=== PATIENT | female | born 1940 | race Caucasian/White ===

== ENCOUNTER 2016-09-27 12:26 | Emergency (ER) | payer BC, MEDICARE ==
[~2016-09-27] VITALS: Ht 172.7 cm; Wt 63.5 kg
[~2016-09-27 12:26] MED LIST: GABA600T2 PO; LORA0.5T PO; TRIA15OI TP
--- NOTE | 2016-09-27 12:55 | PHYS DOC ---
Past Medical History Past Medical History: Other Additional Past Medical Histor: MS Past Surgical History: Tonsillectomy, Tubal ligation, Other Additional Past Surgical Histo: BACK Additional Information: 0.5 PPD Alcohol Use: None Drug Use: None Adult General Chief Complaint Chief Complaint: OTHER COMPLAINTS [facility] HPI Patient is a 75 year old female who presents with a fall a few days ago. She denies she has a history of MS and she feels like she is losing ground. Few days ago she fell backwards and hit her head on the concrete floor and balance to 3 times. She denies headache currently and she denies losing consciousness when she fell. Yesterday she saw her chiropractor who did some x- rays of her neck and popped her neck. She states that she's been feeling a little weaker than normal. She feels that it could be her MS, but she wants to make sure it's not something else. She does have a follow-up appointment in October with her MS doctor. Review of Systems Review of Systems Constitutional: Denies fever or chills [] Eyes: Denies change in visual acuity, redness, or eye pain [] HENT: Denies nasal congestion or sore throat [] Respiratory: Denies cough or shortness of breath [] Cardiovascular: No additional information not addressed in HPI [] GI: Denies abdominal pain, nausea, vomiting, bloody stools or diarrhea [] : Denies dysuria or hematuria [] Musculoskeletal: Denies back pain or joint pain [] Integument: Denies rash or skin lesions [] Neurologic: Denies headache, focal weakness or sensory changes [] Endocrine: Denies polyuria or polydipsia [] Allergies Allergies Allergies Coded Allergies Type Severity Reaction Last Updated Verified No Known Drug Allergies 07/05/15 No Physical Exam Physical Exam Constitutional: Well developed, well nourished, no acute distress, non-toxic appearance. [] HENT: Normocephalic, atraumatic, bilateral external ears normal, oropharynx moist, no oral exudates, nose normal. [] Eyes: PERRLA, EOMI, conjunctiva normal, no discharge. [] Neck: Normal range of motion, no tenderness, supple, no stridor. [] Cardiovascular:Heart rate regular rhythm, no murmur [] Lungs & Thorax: Bilateral breath sounds clear to auscultation [] Abdomen: Bowel sounds normal, soft, no tenderness, no masses, no pulsatile masses. [] Skin: Warm, dry, no erythema, no rash. [] Back: No tenderness, no CVA tenderness. [] Extremities: No tenderness, no cyanosis, no clubbing, ROM intact, no edema. [] Neurologic: Alert and oriented X 3, normal motor function, normal sensory function, no focal deficits noted. [] Psychologic: Affect normal, judgement normal, mood normal. [] Current Patient Data Vital Signs Vital Signs Date Time Temp Pulse Resp B/P Pulse Ox O2 Delivery O2 Flow Rate FiO2 09/27/16 14:18 80 18 132/66 99 Room Air 09/27/16 12:31 97.7 97.7 Lab Values Laboratory Tests Test 09/27/16 13:00 09/27/16 13:12 Urine Collection Type Unknown Urine Color Yellow Urine Clarity Clear Urine pH 6.5 Urine Specific [place] 1.010 Urine Protein Negativemg/dL (NEG-TRACE) Urine Glucose (UA) Negativemg/dL (NEG) Urine Ketones (Stick) Negativemg/dL (NEG) Urine Blood Negative (NEG) Urine Nitrite Negative (NEG) Urine Bilirubin Negative (NEG) Urine Urobilinogen Dipstick 0.2mg/dL (0.2 mg/dL) Urine Leukocyte Esterase Negative (NEG) Urine RBC 0/HPF (0-2) Urine WBC 1-4/HPF (0-4) Urine Squamous Epithelial Cells Mod/LPF Urine Bacteria Few/HPF (0-FEW) Sodium Level 139mmol/L (136-145) Potassium Level 4.7mmol/L (3.5-5.1) Chloride Level 103mmol/L (98-107) Carbon Dioxide Level 28mmol/L (21-32) Anion Gap 8 (6-14) Blood Urea Nitrogen 14mg/dL (7-20) Creatinine 0.8mg/dL (0.6-1.0) Estimated GFR (Cockcroft-Gault) 69.6 BUN/Creatinine Ratio 18 (6-20) Glucose Level 109mg/dL (70-99) H Calcium Level 9.4mg/dL (8.5-10.1) Total Bilirubin 0.4mg/dL (0.2-1.0) Aspartate Amino Transferase (AST) 15U/L (15-37) Alanine Aminotransferase (ALT) 16U/L (14-59) Alkaline Phosphatase 105U/L (46-116) Creatine Kinase 43U/L (26-192) Creatine Kinase MB (Mass) 0.7ng/mL (0.0-3.6) Creatine Kinase MB Relative Index 1.6% (0-4) Total Protein 7.5g/dL (6.4-8.2) Albumin 3.2g/dL (3.4-5.0) L Albumin/Globulin Ratio 0.7 (1.0-1.7) L Thyroid Stimulating Hormone (TSH) 1.037uIU/mL (0.358-3.74) Laboratory Tests 09/27/16 13:12 EKG EKG [] Radiology/Procedures Radiology/Procedures [facility] [address] [place] [address] IMAGING REPORT Signed PATIENT: ANDREW GARNETT ACCOUNT: [id number] : 1940 LOCATION: ER AGE: 75 SEX: F EXAM STATUS: PRE ER ORD. PHYSICIAN: VONNIE HARMAN MD REASON: fall, dizziness PROCEDURE: HEAD AND CERVICAL SPINE WO CT of the head without contrast, 09/27/2016: History: Fall, dizziness Comparison is made to a study from 08/15/2010. The ventricles are mildly enlarged but unchanged. There is no shift of the midline structures. Minimal deep white matter lucencies are present adjacent to the frontal horns, not uncommon in older patients. There is no evidence of acute intracranial hemorrhage or mass effect. IMPRESSION: No acute intracranial abnormality is detected. CT of the cervical spine without contrast, 09/27/2016: Noncontrast scans were obtained with multiplanar reconstructions produced. There is moderate disc space narrowing and marginal spurring at C6-7. A few other scattered posterior spurs and disc bulges are present at C5-6, C4-5 and C3-4. There are mild degenerative changes involving scattered facet joints bilaterally. No fracture or dislocation is identified. No high-grade spinal stenosis is evident. IMPRESSION: 1. Mild to moderate multilevel degenerative change. 2. No acute bony abnormality is detected. PQRS Compliance Statement: One or more of the following individualized dose reduction techniques were utilized for this examination: 1. Automated exposure control 2. Adjustment of the mA and/or kV according to patient size 3. Use of iterative reconstruction technique DICTATED and SIGNED BY: MARQUIS HILL MD DATE: 09/27/16 5092 CC: VONNIE HARMAN MD; JAVIER CEDENO MD ~ Impressions: Postconcussive syndrome Course & Med Decision Making Course & Med Decision Making Pertinent Labs and Imaging studies reviewed. (See chart for details) Labs, CT scan does not show an acute abnormalities. She is being discharged home. She is to follow-up with her MS clinic, return precautions given cerebral plan be discharged in stable condition this time. Dragon Disclaimer Dragon Disclaimer This electronic medical record was generated, in whole or in part, using a voice recognition dictation system. Departure Departure Impression: Primary Impression: Postconcussive syndrome Disposition: 01 HOME, SELF-CARE Condition: STABLE Referrals: JAVIER CEDENO MD (PCP) Patient Instructions: Post-Concussion Syndrome Additional Instructions: CT scan of the neck and your blood work did not show any acute abnormalities. Discharged home. Please follow-up with your primary care physician. Return ER for lightheadedness dizziness or other concerns. VONNIE HARMAN MD Sep 27, 2016 12:55
[2016-09-27 13:23] LABS: BILIRUBIN,URINE NEGATIVE (NEG); GLUCOSE,URINE NEGATIVE (NEG); NITRITE,URINE NEGATIVE (NEG); PH,URINE 6.5; PROTEIN,URINE NEGATIVE (NEG-TRACE); UROBILINOGEN,URINE 0.2 mg/dL (0.2 mg/dL)
[2016-09-27 13:29] LABS: BACTERIA,URINE FEW /HPF (0-FEW); RBC,URINE 0 /HPF (0-2); SQUAMOUS EPITHELIAL CELL,UR MOD /LPF
[2016-09-27 13:31] LABS: CALCIUM 9.4 mg/dL (8.5-10.1); CREATININE 0.8 mg/dL (0.6-1.0); GFR 69.6; POTASSIUM 4.7 mmol/L (3.5-5.1)
[2016-09-27 13:36] LABS: ALBUMIN 3.2 g/dL (3.4-5.0); ALBUMIN/GLOBULIN RATIO 0.7 (1.0-1.7); TOTAL BILIRUBIN 0.4 mg/dL (0.2-1.0); TOTAL PROTEIN 7.5 g/dL (6.4-8.2)
[2016-09-27 13:44] LABS: CKMB INDEX 1.6 % (0-4); CKMB MASS 0.7 ng/mL (0.0-3.6)
--- NOTE | 2016-09-27 13:57 | RAD ---
CT of the head without contrast, 09/27/2016: History: Fall, dizziness Comparison is made to a study from 08/15/2010. The ventricles are mildly enlarged but unchanged. There is no shift of the midline structures. Minimal deep white matter lucencies are present adjacent to the frontal horns, not uncommon in older patients. There is no evidence of acute intracranial hemorrhage or mass effect. IMPRESSION: No acute intracranial abnormality is detected. CT of the cervical spine without contrast, 09/27/2016: Noncontrast scans were obtained with multiplanar reconstructions produced. There is moderate disc space narrowing and marginal spurring at C6-7. A few other scattered posterior spurs and disc bulges are present at C5-6, C4-5 and C3-4. There are mild degenerative changes involving scattered facet joints bilaterally. No fracture or dislocation is identified. No high-grade spinal stenosis is evident. IMPRESSION: 1. Mild to moderate multilevel degenerative change. 2. No acute bony abnormality is detected. PQRS Compliance Statement: One or more of the following individualized dose reduction techniques were utilized for this examination: 1. Automated exposure control 2. Adjustment of the mA and/or kV according to patient size 3. Use of iterative reconstruction technique
[2016-09-27 14:18] VITALS: BP 132/66
== END 2016-09-27 14:28 | disposition home or self-care (01) ==
LOC: ER 12:26
DX: F07.81 Postconcussional syndrome (principal); G35 Multiple sclerosis; F17.210 Nicotine dependence, cigarettes, uncomplicated
CPT/HCPCS: 36415; 70450; 72125; 80053; 81001; 82553; 84443; 99285-25

== ENCOUNTER 2016-12-17 10:53 | Emergency (ER) | payer BC, MEDICARE ==
[~2016-12-17] VITALS: Ht 172.7 cm; Wt 65.8 kg
[2016-12-17 11:33] LABS: BILIRUBIN,URINE NEGATIVE (NEG); GLUCOSE,URINE NEGATIVE (NEG); NITRITE,URINE NEGATIVE (NEG); PROTEIN,URINE NEGATIVE (NEG-TRACE); UROBILINOGEN,URINE 0.2 mg/dL (0.2 mg/dL)
[2016-12-17 11:53] LABS: BACTERIA,URINE 0 /HPF (0-FEW); RBC,URINE 0 /HPF (0-2); SQUAMOUS EPITHELIAL CELL,UR FEW /LPF; WBC,URINE RARE /HPF (0-4)
[2016-12-17] MEDS ORDERED: fentaNYL PF VIAL 100 MCG/2 ML VIAL IV ONE (12:15)
--- NOTE | 2016-12-17 12:26 | PHYS DOC ---
Past Medical History Past Medical History: Other Additional Past Medical Histor: MS Past Surgical History: Tonsillectomy, Tubal ligation, Other Additional Past Surgical Histo: BACK Alcohol Use: Rarely Drug Use: None Adult General Chief Complaint Chief Complaint: FLANK PAIN [facility] HPI Patient is a 76 year old female who presents with left flank pain. Patient states that she was at home when she developed rather abrupt left flank pain started yesterday. She reports she's been up all night urinating frequently. The pain improves if she lays perfectly still, worsens when she attempts to move. She denies dysuria, no nausea or vomiting, no fevers. She has attempted Aleve for pain at 3 AM without relief. No previous similar symptoms, no trauma or falls, no heavy lifting, pain does worsen with bending. Pain does not radiate into her leg. Review of Systems Review of Systems Constitutional: Denies fever or chills [] Eyes: Denies change in visual acuity, redness, or eye pain [] HENT: Denies nasal congestion or sore throat [] Respiratory: Denies cough or shortness of breath [] Cardiovascular: No additional information not addressed in HPI [] GI: Denies abdominal pain, nausea, vomiting, bloody stools or diarrhea [] : Denies dysuria or hematuria [] Musculoskeletal: Denies back pain or joint pain [] Integument: Denies rash or skin lesions [] Neurologic: Denies headache, focal weakness or sensory changes [] Endocrine: Denies polyuria or polydipsia [] Current Medications Current Medications Current Medications Medications (Trade) Dose Ordered Sig/[place] Start Time Stop Time Status Last Admin Dose Admin Fentanyl Citrate (Fentanyl 2ml Vial) 50 mcg 1X ONCE 12/17/16 12:15 12/17/16 12:16 DC Info (Do NOT chart on this entry -- for MONITORING) 1 each PRN DAILY PRN 12/17/16 12:45 12/17/16 15:17 DC Iohexol (Omnipaque 300 Mg/ml) 75 ml 1X ONCE 12/17/16 12:45 12/17/16 12:46 DC 12/17/16 14:09 75 ML Ketorolac Tromethamine (Toradol) 30 mg 1X ONCE 12/17/16 12:30 12/17/16 12:31 DC Allergies Allergies Allergies Coded Allergies Type Severity Reaction Last Updated Verified No Known Drug Allergies 07/05/15 No Physical Exam Physical Exam Constitutional: Well developed, well nourished, no acute distress, non-toxic appearance. [] HENT: Normocephalic, atraumatic, bilateral external ears normal, oropharynx moist, no oral exudates, nose normal. [] Eyes: PERRLA, EOMI, conjunctiva normal, no discharge. [] Neck: Normal range of motion, no tenderness, supple, no stridor. [] Cardiovascular:Heart rate regular rhythm, no murmur [] Lungs & Thorax: Bilateral breath sounds clear to auscultation, no wheeze or crackles Abdomen: Bowel sounds normal, soft, no tenderness, no masses, no pulsatile masses. [] Skin: Warm, dry, no erythema, no rash. [] Back: No tenderness,ttp left flank, appears pain when she attempts to sit up, straight leg test neg bilaterally Extremities: No tenderness, no cyanosis, no clubbing, ROM intact, no edema. [] Neurologic: Alert and oriented X 3, normal motor function, normal sensory function, no focal deficits noted. [] Psychologic: Affect normal, judgement normal, mood normal. [] Current Patient Data Vital Signs Vital Signs Date Time Temp Pulse Resp B/P (MAP) Pulse Ox O2 Delivery O2 Flow Rate FiO2 12/17/16 14:47 58 155/70 (98) 98 Room Air 12/17/16 11:23 97.6 18 97.6 Lab Values Laboratory Tests Test 12/17/16 11:25 12/17/16 12:25 Urine Collection Type Void Urine Color Yellow Urine Clarity Cloudy Urine pH 7.0 Urine Specific [place] 1.020 Urine Protein Negative mg/dL (NEG-TRACE) Urine Glucose (UA) Negative mg/dL (NEG) Urine Ketones (Stick) Negative mg/dL (NEG) Urine Blood Negative (NEG) Urine Nitrite Negative (NEG) Urine Bilirubin Negative (NEG) Urine Urobilinogen Dipstick 0.2 mg/dL (0.2 mg/dL) Urine Leukocyte Esterase Small (NEG) Urine RBC 0 /HPF (0-2) Urine WBC Rare /HPF (0-4) Urine Squamous Epithelial Cells Few /LPF Urine Amorphous Sediment Present /HPF Urine Bacteria 0 /HPF (0-FEW) White Blood Count 6.1 x10^3/uL (4.0-11.0) Red Blood Count 4.58 x10^6/uL (3.50-5.40) Hemoglobin 13.7 g/dL (12.0-15.5) Hematocrit 41.5 % (36.0-47.0) Mean Corpuscular Volume 91 fL (79-100) Mean Corpuscular Hemoglobin 30 pg (25-35) Mean Corpuscular Hemoglobin Concent 33 g/dL (31-37) Red Cell Distribution Width 14.4 % (11.5-14.5) Platelet Count 201 x10^3/uL (140-400) Neutrophils (%) (Auto) 69 % (31-73) Lymphocytes (%) (Auto) 22 % (24-48) L Monocytes (%) (Auto) 7 % (0-9) Eosinophils (%) (Auto) 1 % (0-3) Basophils (%) (Auto) 0 % (0-3) Neutrophils # (Auto) 4.2 x10^3uL (1.8-7.7) Lymphocytes # (Auto) 1.4 x10^3/uL (1.0-4.8) Monocytes # (Auto) 0.5 x10^3/uL (0.0-1.1) Eosinophils # (Auto) 0.0 x10^3/uL (0.0-0.7) Basophils # (Auto) 0.0 x10^3/uL (0.0-0.2) Potassium Level 3.9 mmol/L (3.5-5.1) Laboratory Tests 12/17/16 12:25 Laboratory Tests 12/17/16 12:25 EKG EKG [] Radiology/Procedures Radiology/Procedures CT abd/pelvis: Impression: No acute abnormality is seen. Course & Med Decision Making Course & Med Decision Making Pertinent Labs and Imaging studies reviewed. (See chart for details) Pt offered pain medication, declined. UA did not show infection. CT negative, no acute findings and pt likely has MSK pain. I recommended lidocaine patches, continue aleve, ice/heat. F/u with PCP, return precautions given. Dragon Disclaimer Dragon Disclaimer This electronic medical record was generated, in whole or in part, using a voice recognition dictation system. Departure Departure Impression: Primary Impression: Back pain Disposition: 01 HOME, SELF-CARE Condition: STABLE Referrals: JAVIER CEDENO MD (PCP) TELMA SHERWOOD MD Dec 17, 2016 12:26
[2016-12-17] MEDS ORDERED: KETOROLAC TROMETHAMINE 30 MG/ML INJ. IV ONE (12:30)
[2016-12-17 12:39] LABS: BASO % 0 % (0-3); EOS % 1 % (0-3); HEMATOCRIT 41.5 % (36.0-47.0); HEMOGLOBIN 13.7 g/dL (12.0-15.5); LYMPH # 1.4 x10^3/uL (1.0-4.8); LYMPH % 22 % (24-48); MEAN CORPUSCULAR HEMOGLOBIN 30 pg (25-35); MEAN CORPUSCULAR HGB CONC 33 g/dL (31-37); MEAN CORPUSCULAR VOLUME 91 fL (79-100); MONO % 7 % (0-9); NEUT % 69 % (31-73); PLATELET COUNT 201 x10^3/uL (140-400); RED BLOOD COUNT 4.58 x10^6/uL (3.50-5.40); RED CELL DISTRIBUTION WIDTH 14.4 % (11.5-14.5); WHITE BLOOD COUNT 6.1 x10^3/uL (4.0-11.0)
[2016-12-17] MEDS ORDERED: IOHEXOL 300 MG/ML 75 ML VIAL IV ONE ×2 (12:45)
[2016-12-17] MEDS ORDERED: CONTRAST GIVEN MC PRN (12:45)
--- NOTE | 2016-12-17 14:26 | RAD ---
CT scan of the abdomen and pelvis with contrast 12/17/2016 Clinical history: Left flank pain for one day. Technique: After the intravenous administration of 75 cc of Omnipaque 300, contiguous, 5 mm axial sections were obtained through the abdomen and pelvis. One or more of the following individualized dose reduction techniques were utilized for this study: 1. Automated exposure control. 2. Adjustment of the mA and/or kV according to patient size. 3. Use of iterative reconstruction technique. Findings: Images through the lung bases demonstrate minimal dependent subsegmental atelectasis bilaterally. Small calcified granulomas are seen involving the right lower lobe. The liver parenchyma has a decreased attenuation consistent with mild fatty infiltration. The spleen, pancreas, adrenal glands and left kidney are within normal limits. A 8 mm rounded low-attenuation lesion is seen involving the superior pole of the right kidney. This likely represents a cyst. Moderate atherosclerotic calcification of the abdominal aorta is seen. The abdominal aorta tapers normally. The gallbladder is well-distended. No free fluid or free air is seen within the abdomen. There is no evidence of bowel obstruction Images through the pelvis demonstrate the urinary bladder to be contracted. Calcifications are seen within the pelvis consistent with phleboliths. The patient is status post right JEFFREY. Multiple diverticula are seen normal sigmoid colon. No inflammatory changes are seen adjacent fat. No free fluid is seen. Degenerative changes are seen along the lower thoracic and throughout the lumbar spine along with the left hip. Impression: No acute abnormality is seen.
[2016-12-17 14:47] VITALS: BP 155/70
== END 2016-12-17 15:10 | disposition home or self-care (01) ==
LOC: ER 10:53
DX: M54.89 Other dorsalgia (principal); R10.9 Unspecified abdominal pain; R35.0 Frequency of micturition; Z98.51 Tubal ligation status; Z98.890 Other specified postprocedural states
CPT/HCPCS: 36415; 74177; 80047; 81001; 84132; 85027; 87086; 99285; Q9967

== ENCOUNTER 2017-06-13 10:13 | Emergency (ER) | payer BC ==
[~2017-06-13] VITALS: Ht 172.7 cm; Wt 65.8 kg
[2017-06-13 10:25] VITALS: BP 147/74
--- NOTE | 2017-06-13 10:34 | PHYS DOC ---
Past Medical History Past Medical History: Other Additional Past Medical Histor: MS Past Surgical History: Tonsillectomy, Tubal ligation, Other Additional Past Surgical Histo: BACK Alcohol Use: Rarely Drug Use: None Adult General Chief Complaint Chief Complaint: HEAD INJURY/TRAUMA [facility] HPI Patient is a 76 year old female with a history of MS presents to the ED complaining of fall this morning while going to get the mail. Complains of headache and tailbone pain. States she has left weakness from her MS and walks with a cane. States the cane slipped out from her and she fell. States she only takes gabapentin at home. Describes the pain as sharp. Rates the pain as 6/10. Patient does not take any blood thinners. Patient able to ambulate with a walker. Denies vision changes, n/v, chest pain, shortness of breath, symptoms prior to fall, abdominal pain, or fever. Review of Systems Review of Systems Constitutional: Denies fever or chills [] Eyes: Denies change in visual acuity, redness, or eye pain [] HENT: Denies nasal congestion or sore throat [] Respiratory: Denies cough or shortness of breath [] Cardiovascular: No additional information not addressed in HPI [] GI: Denies abdominal pain, nausea, vomiting, bloody stools or diarrhea [] : Denies dysuria or hematuria [] Musculoskeletal: Complains of tailbone pain. Denies back pain. [] Integument: Denies rash or skin lesions [] Neurologic: Complains of headache. Denies focal weakness or sensory changes [] Endocrine: Denies polyuria or polydipsia [] All other systems were reviewed and found to be within normal limits, except as documented in this note. Allergies Allergies Allergies Coded Allergies Type Severity Reaction Last Updated Verified No Known Drug Allergies 07/05/15 No Physical Exam Physical Exam Constitutional: Well developed, well nourished, no acute distress, non-toxic appearance. [] HENT: Normocephalic, atraumatic, bilateral external ears normal, oropharynx moist, no oral exudates, nose normal. [] Eyes: PERRLA, EOMI, conjunctiva normal, no discharge. [] Neck: Normal range of motion, no tenderness, supple, no stridor. [] Cardiovascular:Heart rate regular rhythm, no murmur [] Lungs & Thorax: Bilateral breath sounds clear to auscultation [] Abdomen: Bowel sounds normal, soft, no tenderness, no masses, no pulsatile masses. [] Skin: Warm, dry, no erythema, no rash. [] Back: No tenderness, no CVA tenderness. MILD COCCYX TENDERNESS. [] Extremities: No tenderness, no cyanosis, no clubbing, ROM intact, no edema. No hip tenderness. [] Neurologic: Alert and oriented X 3, normal motor function, normal sensory function, no focal deficits noted. [] Psychologic: Affect normal, judgement normal, mood normal. [] Current Patient Data Vital Signs Vital Signs Date Time Temp Pulse Resp B/P (MAP) Pulse Ox O2 Delivery O2 Flow Rate FiO2 06/13/17 11:39 64 14 129/80 (96) Room Air 06/13/17 10:25 97.4 99 97.4 Lab Values Laboratory Tests Test 06/13/17 10:25 06/13/17 11:05 Urine Collection Type Void Urine Color Straw Urine Clarity Clear Urine pH 5.5 Urine Specific [place] 1.010 Urine Protein Negative mg/dL (NEG-TRACE) Urine Glucose (UA) Negative mg/dL (NEG) Urine Ketones (Stick) Negative mg/dL (NEG) Urine Blood Negative (NEG) Urine Nitrite Negative (NEG) Urine Bilirubin Negative (NEG) Urine Urobilinogen Dipstick 0.2 mg/dL (0.2 mg/dL) Urine Leukocyte Esterase Negative (NEG) Urine RBC Rare /HPF (0-2) Urine WBC 1-4 /HPF (0-4) Urine Squamous Epithelial Cells Few /LPF Urine Bacteria Few /HPF (0-FEW) White Blood Count 5.5 x10^3/uL (4.0-11.0) Red Blood Count 4.63 x10^6/uL (3.50-5.40) Hemoglobin 13.8 g/dL (12.0-15.5) Hematocrit 41.4 % (36.0-47.0) Mean Corpuscular Volume 90 fL (79-100) Mean Corpuscular Hemoglobin 30 pg (25-35) Mean Corpuscular Hemoglobin Concent 33 g/dL (31-37) Red Cell Distribution Width 14.7 % (11.5-14.5) H Platelet Count 244 x10^3/uL (140-400) Sodium Level 144 mmol/L (136-145) Potassium Level 4.1 mmol/L (3.5-5.1) Chloride Level 106 mmol/L (98-107) Carbon Dioxide Level 31 mmol/L (21-32) Anion Gap 7 (6-14) Blood Urea Nitrogen 24 mg/dL (7-20) H Creatinine 0.7 mg/dL (0.6-1.0) Estimated GFR (Cockcroft-Gault) 80.9 BUN/Creatinine Ratio 34 (6-20) H Glucose Level 109 mg/dL (70-99) H Calcium Level 8.6 mg/dL (8.5-10.1) Total Bilirubin 0.2 mg/dL (0.2-1.0) Aspartate Amino Transferase (AST) 20 U/L (15-37) Alanine Aminotransferase (ALT) 22 U/L (14-59) Alkaline Phosphatase 76 U/L (46-116) Creatine Kinase 135 U/L (26-192) Creatine Kinase MB (Mass) 2.4 ng/mL (0.0-3.6) Creatine Kinase MB Relative Index 1.8 % (0-4) Troponin I Quantitative < 0.017 ng/mL (0.000-0.055) Total Protein 6.5 g/dL (6.4-8.2) Albumin 3.4 g/dL (3.4-5.0) Albumin/Globulin Ratio 1.1 (1.0-1.7) Laboratory Tests 06/13/17 11:05 Laboratory Tests 06/13/17 11:05 EKG EKG []NSR at 74 bpm.No Stemi. No acute t wave changes. Radiology/Procedures Radiology/Procedures PROCEDURE: CHEST AP ONLY Examination: Single frontal view of the chest. History: History of fall, syncope Comparison: 06/26/2015 Findings: The cardiomediastinal silhouette grossly appears unremarkable. There is no acute infiltrate or visualize pneumothorax. Impression: No acute cardiopulmonary findings. []PROCEDURE: CT HEAD AND CERVICAL SPINE WO CT of the head without contrast, 06/13/2017: History: Fall, pain Comparison is made to a study from 09/27/2016. The ventricles are mildly enlarged but unchanged. There are mild deep white matter lucencies compatible with chronic ischemic change. There is no shift of the midline structures. There is no evidence of acute intracranial hemorrhage or mass effect. IMPRESSION: No acute intracranial abnormality is detected. CT of the cervical spine without contrast, 06/13/2017: Noncontrast scans were obtained with multiplanar reconstructions produced. There is a mild cervical scoliosis. There is moderate disc space narrowing and marginal spurring at C6-7. There are moderate scattered spurs at other disc levels. There are mild degenerative changes involving multiple facet joints bilaterally. The combination of findings is causing mild central spinal stenosis at several levels including C4-5, C5-6 and C6-7. There is mild foraminal narrowing at several levels as well. No acute fracture or dislocation is identified. IMPRESSION: 1. Moderate multilevel degenerative change. 2. No acute bony abnormality is detected. PROCEDURE: SACRUM & COCCYX 3V Examination: 2 views of the sacrum and coccyx History: History of fall, pain Comparison: None available Findings/impression: Evaluation is limited due to osseous demineralization. Grossly no evidence of displaced fracture of the sacrum and coccyx identified. Course & Med Decision Making Course & Med Decision Making Pertinent Labs and Imaging studies reviewed. (See chart for details) []Discussed labs and imaging with patient. Patient's pain improved. Patient able to ambulate with a walker and states she does not have any pain. Patient states she needs to walk with her walker more and not with her cane because her cane is unreliable. Advised to use only her walker until she follows up with her PCP or her multiple sclerosis doctor, Dr. Mirna Mg. States she has follow-up next week. Discussed safety precautions. Patient states she is feeling much better. Discussed reasons to return to the ED. Patient understands and agrees with plan. Neighbor at bedside. Dragon Disclaimer Dragon Disclaimer This electronic medical record was generated, in whole or in part, using a voice recognition dictation system. Departure Departure Impression: Primary Impression: Fall Additional Impression: Tail bone pain Disposition: 01 HOME, SELF-CARE Condition: IMPROVED Referrals: JAVIER CEDENO MD (PCP) Patient Instructions: Fall Prevention and Home Safety, Tailbone Injury Problem Qualifiers MARY THOMPSON Jun 13, 2017 10:34
[2017-06-13 10:39] LABS: BILIRUBIN,URINE NEGATIVE (NEG); GLUCOSE,URINE NEGATIVE (NEG); NITRITE,URINE NEGATIVE (NEG); PH,URINE 5.5; PROTEIN,URINE NEGATIVE (NEG-TRACE); UROBILINOGEN,URINE 0.2 mg/dL (0.2 mg/dL)
[2017-06-13 10:48] LABS: BACTERIA,URINE FEW /HPF (0-FEW); RBC,URINE RARE /HPF (0-2); SQUAMOUS EPITHELIAL CELL,UR FEW /LPF
--- NOTE | 2017-06-13 11:05 | EKG ---
[facility] [address] [place] [address] Test Date: 2017-06-13 Test Time: 10:42:11 Pat Name: ANDREW GARNETT Department: Room: Gender: F Yard Driver: TRENT : 1940 Requested By: MARY THOMPSON Order Number: [id number] Reading MD: Measurements Intervals Bouse Rate: 74 P: -54 NH: 148 QRS: 54 QRSD: 76 T: 13 QT: 392 QTc: 435 Interpretive Statements SINUS RHYTHM NORMAL ECG No previous ECG available for comparison
[2017-06-13 11:12] LABS: HEMATOCRIT 41.4 % (36.0-47.0); HEMOGLOBIN 13.8 g/dL (12.0-15.5); RED BLOOD COUNT 4.63 x10^6/uL (3.50-5.40); RED CELL DISTRIBUTION WIDTH 14.7 % (11.5-14.5); WHITE BLOOD COUNT 5.5 x10^3/uL (4.0-11.0)
[2017-06-13 11:32] LABS: CALCIUM 8.6 mg/dL (8.5-10.1); CREATININE 0.7 mg/dL (0.6-1.0); GFR 80.9; POTASSIUM 4.1 mmol/L (3.5-5.1)
--- NOTE | 2017-06-13 11:36 | RAD ---
CT of the head without contrast, 06/13/2017: History: Fall, pain Comparison is made to a study from 09/27/2016. The ventricles are mildly enlarged but unchanged. There are mild deep white matter lucencies compatible with chronic ischemic change. There is no shift of the midline structures. There is no evidence of acute intracranial hemorrhage or mass effect. IMPRESSION: No acute intracranial abnormality is detected. CT of the cervical spine without contrast, 06/13/2017: Noncontrast scans were obtained with multiplanar reconstructions produced. There is a mild cervical scoliosis. There is moderate disc space narrowing and marginal spurring at C6-7. There are moderate scattered spurs at other disc levels. There are mild degenerative changes involving multiple facet joints bilaterally. The combination of findings is causing mild central spinal stenosis at several levels including C4-5, C5-6 and C6-7. There is mild foraminal narrowing at several levels as well. No acute fracture or dislocation is identified. IMPRESSION: 1. Moderate multilevel degenerative change. 2. No acute bony abnormality is detected. PQRS Compliance Statement: One or more of the following individualized dose reduction techniques were utilized for this examination: 1. Automated exposure control 2. Adjustment of the mA and/or kV according to patient size 3. Use of iterative reconstruction technique
[2017-06-13 11:38] LABS: ALBUMIN 3.4 g/dL (3.4-5.0); ALBUMIN/GLOBULIN RATIO 1.1 (1.0-1.7); TOTAL BILIRUBIN 0.2 mg/dL (0.2-1.0); TOTAL PROTEIN 6.5 g/dL (6.4-8.2)
--- NOTE | 2017-06-13 11:38 | RAD ---
Examination: Single frontal view of the chest. History: History of fall, syncope Comparison: 06/26/2015 Findings: The cardiomediastinal silhouette grossly appears unremarkable. There is no acute infiltrate or visualize pneumothorax. Impression: No acute cardiopulmonary findings.
--- NOTE | 2017-06-13 11:39 | RAD ---
Examination: 2 views of the sacrum and coccyx History: History of fall, pain Comparison: None available Findings/impression: Evaluation is limited due to osseous demineralization. Grossly no evidence of displaced fracture of the sacrum and coccyx identified.
[2017-06-13 11:46] LABS: CKMB MASS 2.4 ng/mL (0.0-3.6)
== END 2017-06-13 12:18 | disposition home or self-care (01) ==
LOC: ER 10:13
DX: M53.3 Sacrococcygeal disorders, not elsewhere classified (principal); R51 Headache; G35 Multiple sclerosis; W01.0XXA Fall on same level from slipping, tripping and stumbling without subsequent striking against object, initial encounter; Y93.01 Activity, walking, marching and hiking; Y99.8 Other external cause status; Y92.89 Other specified places as the place of occurrence of the external cause
CPT/HCPCS: 36415; 70450; 71010; 72125; 72220; 80053; 81001; 82550; 82553; 84484; 85027; 93005; 99285-25

== ENCOUNTER 2017-12-23 11:21 | Emergency (ER) | payer BC ==
[2017-12-23 12:18] LABS: ADD MAN DIFF? NO
[2017-12-23 12:19] LABS: BASO % 0 % (0-3); EOS # 0.1 x10^3/uL (0.0-0.7); EOS % 1 % (0-3); HEMATOCRIT 40.3 % (36.0-47.0); LYMPH % 12 % (24-48); MEAN CORPUSCULAR HEMOGLOBIN 31 pg (25-35); MEAN CORPUSCULAR HGB CONC 35 g/dL (31-37); MEAN CORPUSCULAR VOLUME 89 fL (79-100); MONO # 0.5 x10^3/uL (0.0-1.1); MONO % 6 % (0-9); NEUT # 6.7 x10^3uL (1.8-7.7); NEUT % 81 % (31-73); PLATELET COUNT 189 x10^3/uL (140-400); RED BLOOD COUNT 4.51 x10^6/uL (3.50-5.40); RED CELL DISTRIBUTION WIDTH 14.5 % (11.5-14.5); WHITE BLOOD COUNT 8.3 x10^3/uL (4.0-11.0)
[2017-12-23 12:42] LABS: ANION GAP 7 (6-14); BLOOD UREA NITROGEN 24 mg/dL (7-20); CALCIUM 8.5 mg/dL (8.5-10.1); CARBON DIOXIDE 25 mmol/L (21-32); CHLORIDE 107 mmol/L (98-107); CREATININE 0.7 mg/dL (0.6-1.0); GFR 80.7; GLUCOSE 101 mg/dL (70-99); SODIUM 139 mmol/L (136-145)
[2017-12-23 13:43] LABS: BILIRUBIN,URINE NEGATIVE (NEG); CLARITY,URINE CLEAR; COLOR,URINE YELLOW; GLUCOSE,URINE NEGATIVE (NEG); NITRITE,URINE NEGATIVE (NEG); PROTEIN,URINE NEGATIVE (NEG-TRACE); UROBILINOGEN,URINE 0.2 mg/dL (0.2 mg/dL)
[2017-12-23 13:53] LABS: BACTERIA,URINE FEW /HPF (0-FEW); RBC,URINE 0 /HPF (0-2); SQUAMOUS EPITHELIAL CELL,UR FEW /LPF; WBC,URINE 0 /HPF (0-4)
[2017-12-23] MEDS: DIPHTH,PERTUSS(ACELL),TET TOX 0.5 ML DISP.SYRIN. VAX IM (15:00)
[2017-12-23] MEDS: HYDROcodone/APAP 5/325MG 1 TAB TABLET PO (15:02)
== END 2017-12-23 15:05 | disposition home or self-care (01) ==
LOC: ER 11:21
DX: M25.551 Pain in right hip (principal); Z90.710 Acquired absence of both cervix and uterus; Z90.89 Acquired absence of other organs; Z79.891 Long term (current) use of opiate analgesic; Z79.899 Other long term (current) drug therapy
CPT/HCPCS: 36415; 72192; 73502; 73562; 80048; 81001; 85025; 99285-25

== ENCOUNTER 2018-11-19 10:04 | Emergency (ER) | payer BC, MEDICARE ==
[~2018-11-19] VITALS: Ht 172.7 cm; Wt 68.0 kg
[~2018-11-19 10:04] MED LIST changes: -GABA600T2 PO; +GABA600T7 PO; +HYDR-2761 PO
[2018-11-19 10:55] LABS: BILIRUBIN,URINE NEGATIVE (NEG); CLARITY,URINE CLOUDY; COLOR,URINE YELLOW; NITRITE,URINE NEGATIVE (NEG); PH,URINE 5.5; PROTEIN,URINE NEGATIVE (NEG-TRACE); UROBILINOGEN,URINE 0.2 mg/dL (0.2 mg/dL)
[2018-11-19] MEDS ORDERED: DICYCLOMINE HCL 10 MG CAPSULE PO ONE (11:00)
[2018-11-19] MEDS ORDERED: ONDANSETRON PF 4 MG/2 ML VIAL. IV ONE (11:00)
[2018-11-19] MEDS ORDERED: FAMOTIDINE 20 MG/2 ML VIAL IVP ONE (11:00)
[2018-11-19] MEDS ORDERED: IV NORMAL SALINE 1000ML BAG 1,000 ML IV ONE (11:00)
[2018-11-19 11:01] LABS: BARBITURATES NEG (NEG); BENZODIAZEPINES NEG (NEG); CANNABINOIDS NEG (NEG); COCAINE NEG (NEG); METHADONE NEG (NEG); OPIATES NEG (NEG); PHENCYCLIDINE NEG (NEG)
[2018-11-19 11:02] LABS: AMPHETAMINE/METHAMPHETAMINE NEG (NEG)
[2018-11-19 11:08] LABS: AMORPHOUS SEDIMENT,UR PRESENT /HPF; BACTERIA,URINE FEW /HPF (0-FEW); RBC,URINE 0 /HPF (0-2); SQUAMOUS EPITHELIAL CELL,UR MANY /LPF; WBC,URINE RARE /HPF (0-4)
[2018-11-19 12:00] LABS: BASO % 0 % (0-3); EOS % 1 % (0-3); HEMATOCRIT 42.2 % (36.0-47.0); HEMOGLOBIN 13.8 g/dL (12.0-15.5); LYMPH # 1.4 x10^3/uL (1.0-4.8); LYMPH % 26 % (24-48); MEAN CORPUSCULAR HEMOGLOBIN 29 pg (25-35); MEAN CORPUSCULAR HGB CONC 33 g/dL (31-37); MEAN CORPUSCULAR VOLUME 90 fL (79-100); MONO # 0.6 x10^3/uL (0.0-1.1); MONO % 11 % (0-9); NEUT # 3.3 x10^3uL (1.8-7.7); NEUT % 62 % (31-73); PLATELET COUNT 210 x10^3/uL (140-400); RED BLOOD COUNT 4.69 x10^6/uL (3.50-5.40); RED CELL DISTRIBUTION WIDTH 14.1 % (11.5-14.5); WHITE BLOOD COUNT 5.3 x10^3/uL (4.0-11.0)
[2018-11-19 12:11] LABS: CALCIUM 8.4 mg/dL (8.5-10.1); CREATININE 0.6 mg/dL (0.6-1.0); GFR 96.4; POTASSIUM 3.7 mmol/L (3.5-5.1)
[2018-11-19 12:16] LABS: ALBUMIN 3.1 g/dL (3.4-5.0); ALBUMIN/GLOBULIN RATIO 0.9 (1.0-1.7); TOTAL BILIRUBIN 0.4 mg/dL (0.2-1.0); TOTAL PROTEIN 6.6 g/dL (6.4-8.2)
[2018-11-19] MEDS ORDERED: IOHEXOL 300 MG/ML 100ML VIAL. IV ONE (12:30)
[2018-11-19] MEDS ORDERED: CONTRAST GIVEN. MC PRN (12:30)
--- NOTE | 2018-11-19 13:04 | RAD ---
INDICATION: Diarrhea COMPARISON: December 2016 TECHNIQUE: Axial CT images obtained through the abdomen and pelvis with contrast. One or more of the following individualized dose reduction techniques were utilized for this examination: 1. Automated exposure control; 2. Adjustment of the mA and/or kV according to patient size; 3. Use of iterative reconstruction technique. FINDINGS: There is consolidation along the right heart border. There is also linear opacities within the lingula. Severe calcific atherosclerosis. Small hiatal hernia versus mild distention distal esophagus. Mild low density at portal triads. Could be from mild periportal edema or mild intraductal bile duct prominence. No peripancreatic fluid collection. Spleen unremarkable. Prominence of left extrarenal pelvis. Right hip arthroplasty with artifact obscuring portions of pelvis. Urinary bladder is partially distended at time of exam. Mild prominence right extrarenal pelvis. Colonic diverticulosis. No periappendiceal inflammation. Osseous demineralization. Degenerative changes throughout the spine with multilevel central canal and neural foraminal stenosis. Compression fracture at L3 with post kyphoplasty changes. Degenerative changes of the left hip. IMPRESSION: 1. There are some mildly prominent loops of small bowel with fluid within but no high-grade transition point to suggest an obstruction. 2. Colonic diverticulosis. 3. Mild low density at the portal triads. Could be secondary to mild intraductal bile duct dilation although a small region of periportal edema can also have this appearance. 4. At the right chest base there is a focus of consolidation identified. Could be from causes such as atelectasis given the morphology although would be difficult to exclude a site of infection given this finding. This is only partially visualized therefore alternative causes such as a endobronchial lesion with more peripheral consolidation cannot be excluded on this exam although would be a less common cause. 5. Osseous demineralization is identified. There is also some regions of sclerosis within the sacrum. This could all be secondary to benign osteopenia but would correlate with pain in the region to ensure that there is not an additional cause such as a insufficiency fracture. Electronically signed by: Dany Solis MD (11/19/2018 1:01 PM) [facility]
[2018-11-19 14:00] VITALS: BP 123/65
[2018-11-19] MEDS ORDERED: DIPH1TAB PO (14:05)
[2018-11-19] MEDS ORDERED: DICY20TA3 PO (14:05)
--- NOTE | 2018-11-19 14:06 | PHYS DOC ---
Past Medical History Past Medical History: Other Additional Past Medical Histor: MS (OMAR ARROYO APRN) Past Surgical History: Hip Replacement, Hysterectomy, Tonsillectomy, Tubal ligation, Other Additional Past Surgical Histo: BACK (OMAR ARROYO APRN) Alcohol Use: Rarely Drug Use: None (OMAR ARROYO APRN) Adult General Chief Complaint Chief Complaint: DIARRHEA HPI HPI Patient is a 77 year old female with no significant medical history who presents to the ED today with intermittent episodes of diarrhea for the last 3 weeks, patient states the diarrhea had stopped on Friday then resumed today. She states she was sent to the ED by the PCP for dehydration. Patient denies any abdominal pain, denies any nausea vomiting, denies any bloody stools. (OMAR ARROYO APRN) Review of Systems Review of Systems Constitutional: Reports dehydration. Denies fever or chills [] Eyes: Denies change in visual acuity, redness, or eye pain [] HENT: Denies nasal congestion or sore throat [] Respiratory: Denies cough or shortness of breath [] Cardiovascular: No additional information not addressed in HPI [] GI: Reports diarrhea. Denies abdominal pain, nausea, vomiting, bloody stools : Denies dysuria or hematuria [] Musculoskeletal: Denies back pain or joint pain [] Integument: Denies rash or skin lesions [] Neurologic: Denies headache, focal weakness or sensory changes [] All other systems were reviewed and found to be within normal limits, except as documented in this note. (OMAR ARROYO APRN) Current Medications Current Medications Current Medications Medications (Trade) Dose Ordered Sig/[place] Start Time Stop Time Status Last Admin Dose Admin Dicyclomine HCl (Bentyl) 10 mg 1X ONCE 11/19/18 11:00 11/19/18 11:01 DC 11/19/18 11:23 10 MG Famotidine (Pepcid Vial) 20 mg 1X ONCE 11/19/18 11:00 11/19/18 11:01 DC 11/19/18 11:23 20 MG Info (CONTRAST GIVEN -- Rx MONITORING) 1 each PRN DAILY PRN 11/19/18 12:30 11/19/18 14:26 DC Iohexol (Omnipaque 300 Mg/ml) 75 ml 1X ONCE 11/19/18 12:30 11/19/18 12:31 DC 11/19/18 12:30 75 ML Ondansetron HCl (Zofran) 4 mg 1X ONCE 11/19/18 11:00 11/19/18 11:01 DC 11/19/18 11:23 4 MG Sodium Chloride 1,000 ml @ 1,000 mls/hr 1X ONCE 11/19/18 11:00 11/19/18 11:59 DC 11/19/18 11:22 1,000 MLS/HR (FRANCISCO HAQUE DO) Allergies Allergies Allergies Coded Allergies Type Severity Reaction Last Updated Verified No Known Drug Allergies 07/05/15 No (FRANCISCO HAQUE DO) Physical Exam Physical Exam Constitutional: Well developed, well nourished, no acute distress, non-toxic appearance. [] HENT: Normocephalic, atraumatic, bilateral external ears normal, oropharynx moist, no oral exudates, nose normal. [] Eyes: PERRLA, EOMI, conjunctiva normal, no discharge. [] Neck: Normal range of motion, no tenderness, supple, no stridor. [] Cardiovascular:Heart rate regular rhythm, no murmur [] Lungs & Thorax: Bilateral breath sounds clear to auscultation [] Abdomen: Bowel sounds normal, soft, no tenderness, no masses, no pulsatile masses. [] Skin: Warm, dry, no erythema, no rash. [] Back: No tenderness, no CVA tenderness. [] Extremities: No tenderness, no cyanosis, no clubbing, ROM intact, no edema. [] Neurologic: Alert and oriented X 3, normal motor function, normal sensory function, no focal deficits noted. [] Psychologic: Affect normal, judgement normal, mood normal. [] (OMAR ARROYO APRN) Current Patient Data Vital Signs Vital Signs Date Time Temp Pulse Resp B/P (MAP) Pulse Ox O2 Delivery O2 Flow Rate FiO2 11/19/18 14:00 70 16 123/65 (84) 95 Room Air 11/19/18 10:30 97.8 97.8 (FRANCISCO HAQUE DO) Lab Values Laboratory Tests Test 11/19/18 10:20 11/19/18 11:50 Urine Collection Type Unknown Urine Color Yellow Urine Clarity Cloudy Urine pH 5.5 Urine Specific [place] 1.025 Urine Protein Negative mg/dL (NEG-TRACE) Urine Glucose (UA) Negative mg/dL (NEG) Urine Ketones (Stick) Negative mg/dL (NEG) Urine Blood Negative (NEG) Urine Nitrite Negative (NEG) Urine Bilirubin Negative (NEG) Urine Urobilinogen Dipstick 0.2 mg/dL (0.2 mg/dL) Urine Leukocyte Esterase Negative (NEG) Urine RBC 0 /HPF (0-2) Urine WBC Rare /HPF (0-4) Urine Squamous Epithelial Cells Many /LPF Urine Amorphous Sediment Present /HPF Urine Bacteria Few /HPF (0-FEW) Urine Opiates Screen Neg (NEG) Urine Methadone Screen Neg (NEG) Urine Barbiturates Neg (NEG) Urine Phencyclidine Screen Neg (NEG) Urine Amphetamine/Methamphetamine Neg (NEG) Urine Benzodiazepines Screen Neg (NEG) Urine Cocaine Screen Neg (NEG) Urine Cannabinoids Screen Neg (NEG) Urine Ethyl Alcohol Neg (NEG) White Blood Count 5.3 x10^3/uL (4.0-11.0) Red Blood Count 4.69 x10^6/uL (3.50-5.40) Hemoglobin 13.8 g/dL (12.0-15.5) Hematocrit 42.2 % (36.0-47.0) Mean Corpuscular Volume 90 fL (79-100) Mean Corpuscular Hemoglobin 29 pg (25-35) Mean Corpuscular Hemoglobin Concent 33 g/dL (31-37) Red Cell Distribution Width 14.1 % (11.5-14.5) Platelet Count 210 x10^3/uL (140-400) Neutrophils (%) (Auto) 62 % (31-73) Lymphocytes (%) (Auto) 26 % (24-48) Monocytes (%) (Auto) 11 % (0-9) H Eosinophils (%) (Auto) 1 % (0-3) Basophils (%) (Auto) 0 % (0-3) Neutrophils # (Auto) 3.3 x10^3uL (1.8-7.7) Lymphocytes # (Auto) 1.4 x10^3/uL (1.0-4.8) Monocytes # (Auto) 0.6 x10^3/uL (0.0-1.1) Eosinophils # (Auto) 0.0 x10^3/uL (0.0-0.7) Basophils # (Auto) 0.0 x10^3/uL (0.0-0.2) Sodium Level 141 mmol/L (136-145) Potassium Level 3.7 mmol/L (3.5-5.1) Chloride Level 107 mmol/L (98-107) Carbon Dioxide Level 26 mmol/L (21-32) Anion Gap 8 (6-14) Blood Urea Nitrogen 18 mg/dL (7-20) Creatinine 0.6 mg/dL (0.6-1.0) Estimated GFR (Cockcroft-Gault) 96.4 BUN/Creatinine Ratio 30 (6-20) H Glucose Level 99 mg/dL (70-99) Calcium Level 8.4 mg/dL (8.5-10.1) L Total Bilirubin 0.4 mg/dL (0.2-1.0) Aspartate Amino Transferase (AST) 31 U/L (15-37) Alanine Aminotransferase (ALT) 34 U/L (14-59) Alkaline Phosphatase 82 U/L (46-116) Total Protein 6.6 g/dL (6.4-8.2) Albumin 3.1 g/dL (3.4-5.0) L Albumin/Globulin Ratio 0.9 (1.0-1.7) L Lipase 108 U/L (73-393) Ethyl Alcohol Level < 10 mg/dL (0-10) Laboratory Tests 11/19/18 11:50 Laboratory Tests 11/19/18 11:50 (FRANCISCO HAQUE DO) EKG EKG [] (OMAR ARROYO APRN) Radiology/Procedures Radiology/Procedures []PROCEDURE: CT ABD PELV W/ IV CONTRST ONLY INDICATION: Diarrhea COMPARISON: December 2016 TECHNIQUE: Axial CT images obtained through the abdomen and pelvis with contrast. One or more of the following individualized dose reduction techniques were utilized for this examination: 1. Automated exposure control; 2. Adjustment of the mA and/or kV according to patient size; 3. Use of iterative reconstruction technique. FINDINGS: There is consolidation along the right heart border. There is also linear opacities within the lingula. Severe calcific atherosclerosis. Small hiatal hernia versus mild distention distal esophagus. Mild low density at portal triads. Could be from mild periportal edema or mild intraductal bile duct prominence. No peripancreatic fluid collection. Spleen unremarkable. Prominence of left extrarenal pelvis. Right hip arthroplasty with artifact obscuring portions of pelvis. Urinary bladder is partially distended at time of exam. Mild prominence right extrarenal pelvis. Colonic diverticulosis. No periappendiceal inflammation. Osseous demineralization. Degenerative changes throughout the spine with multilevel central canal and neural foraminal stenosis. Compression fracture at L3 with post kyphoplasty changes. Degenerative changes of the left hip. IMPRESSION: 1. There are some mildly prominent loops of small bowel with fluid within but no high-grade transition point to suggest an obstruction. 2. Colonic diverticulosis. 3. Mild low density at the portal triads. Could be secondary to mild intraductal bile duct dilation although a small region of periportal edema can also have this appearance. 4. At the right chest base there is a focus of consolidation identified. Could be from causes such as atelectasis given the morphology although would be difficult to exclude a site of infection given this finding. This is only partially visualized therefore alternative causes such as a endobronchial lesion with more peripheral consolidation cannot be excluded on this exam although would be a less common cause. 5. Osseous demineralization is identified. There is also some regions of sclerosis within the sacrum. This could all be secondary to benign osteopenia but would correlate with pain in the region to ensure that there is not an additional cause such as a insufficiency fracture. Electronically signed by: Darrell Mccarthy MD (11/19/2018 1:01 PM) [id number] DICTATED and SIGNED BY: DARRELL MCCARTHY MD DATE: 11/19/18 1304 (OMAR ARROYO APRN) Course & Med Decision Making Course & Med Decision Making Pertinent Labs and Imaging studies reviewed. (See chart for details) This is a 77-year-old female patient presenting to the ED today complaining of diarrhea intermittently for 3 weeks and dehydration. CBC with no acute findings. CMP with BUN of 30, creatinine is normal. Heart rate was running in the 100s on arrival to the ED. CT of the abdomen and pelvic was negative for any acute findings regarding the diarrhea. Patient was started on IV fluids, Zofran and dicyclomine. Feeling better. Discharged back to home. Follow-up with GI as well as PCP. Provided return precautions and discharged in stable condition (OMAR ARROYO APRN) Dragon Disclaimer Dragon Disclaimer This electronic medical record was generated, in whole or in part, using a voice recognition dictation system. (OMAR ARROYO APRN) Departure Departure Impression: Primary Impression: Diarrhea Additional Impression: Dehydration Disposition: 01 HOME, SELF-CARE Condition: STABLE Referrals: JAVIER CEDENO MD (PCP) follow up in the course of this week RAJ CLAYTON MD follow up in the course of this week Patient Instructions: Diarrhea, [id number] Additional Instructions: You were evaluated in the emergency room for diarrhea. Please follow-up with the primary care doctor as well as the senior system operator provided in the next 1 week. Come back to the ED at any point symptoms worsen. Continue pushing fluids and maintain good hand hygiene at home. Scripts Diphenoxylate Hcl/Atropine (LOMOTIL TABLET) 1 Each Tablet 1 TAB PO TID, #20 TAB Prov: OMAR ARROYO APRN 11/19/18 Dicyclomine Hcl (DICYCLOMINE HCL) 20 Mg Tablet 1 TAB PO TID, #30 TAB 1 Refill Prov: OMAR ARROYO APRN 11/19/18 Attending Signature Attending Signature I have reviewed the PA/HAUNTED HISTORY TOUR GUIDE's note and plan of care. I was available for consulta tion as needed during the patient's visit in the emergency department. I agree with the clinical impression, plan, and disposition. (FRANCISCO HAQUE DO) Problem Qualifiers Primary Impression: Diarrhea Diarrhea type: unspecified type Qualified Codes: R19.7 - Diarrhea, unspecified ERICWhitneyOMAR APRN November 19, 2018 14:06 FRANCISCO HAQUE DO November 20, 2018 12:40
== END 2018-11-19 14:20 | disposition home or self-care (01) ==
LOC: ER 10:04
DX: R19.7 Diarrhea, unspecified (principal); E86.0 Dehydration; Z90.710 Acquired absence of both cervix and uterus; Z98.51 Tubal ligation status
CPT/HCPCS: 36415; 74177; 80053; 80307; 81001; 83690; 85025; 96361; 96374; 96375; 99285; G0480; J2405; J3490; J7030; Q9967

== ENCOUNTER → 2018-12-24 | Outpatient (CLI) | payer MEDICARE ==
[~2018-12-24] MED LIST changes: +ALEN70TA6 PO; +ASPI-612 PO; +BUDE0.5A NEB; +CIPR250T30 PO; +CIPR500T94 PO; +DICY20TA3 PO; +DILT120C85 PO; +DIPH1TAB PO; +GADOTERATE 7.5 MMOL/15ML VIAL. IVP ONE; +IPRA3AMP29 NEB; +LACT1CAP19 PO; +METR500T PO
--- NOTE | 2018-12-24 15:05 | KCIC ---
MRI Lumbar Spine without contrast History: Leg weakness, recent unexplained falls Technique: Multiplanar, multi sequential noncontrast MR imaging was performed of the lumbar spine. Comparison: None Findings: There has been vertebroplasty L3. There is advanced degenerative disc disease L4-5 and L5-S1, mild disc desiccation L2-3 and L3-4. There is large hemangioma T12, small focus of S1. There are some other heterogeneity of the marrow signal, likely senescent change. Conus terminates at L1. There is very mild levoscoliosis. L1-L2: Neural foramina and spinal canal are adequate. L2-L3: There is negligible disc osteophyte complex. There is mild facet degenerative change and buckling of the ligamentum flavum. Neural foramina and spinal canal are adequate. L3-L4: There is negligible disc osteophyte complex and bulge. There is mild buckling of the ligamentum flavum and facet degenerative change. Bulge is near the descending L4 nerve roots without displacement, very mild narrowing of the far lateral recesses greater on the left. There is mild narrowing of the left neural foramen, right neural foramen overall adequate. L4-L5: There is negligible disc osteophyte complex, shallow protrusion in the far left lateral recess near the descending left L5 nerve root, minimal narrowing of the far left lateral recess. There is minimal buckling of the ligamentum flavum and facet degenerative change. There is mild narrowing of the right neural foramen, left neural foramen overall adequate. L5-S1: There is left laminectomy defect. There is minimal facet degenerative change. Spinal canal is adequate. There is mild narrowing of the more distal right neural foramen, left neural foramen overall adequate. Impression: 1. There is advanced degenerative disc disease at L4-5 and L5-S1. There is minimal narrowing the far left lateral recess at L4-5, very mild narrowing of the far lateral recesses greater on the left at L3-4. There is mild neural foramina compromise on the right at L4-5 and L5-S1 and on the left at L3-L4. Electronically signed by: Manny Pagan MD (12/24/2018 3:02 PM) [id number]
--- NOTE | 2018-12-24 16:48 | KCIC ---
MRI Brain with and without contrast History: Multiple sclerosis, leg weakness, recent unexplained falls Technique: Multiplanar, multi sequential pre and postcontrast MR imaging was performed of the brain. Comparison: July 05, 2015 Findings: There is motion degradation. There is no evidence of a recent infarct. There is no new intra-axial mass effect, midline shift, extra-axial fluid collection, nodular parenchymal or leptomeningeal enhancement. There is again mild third and lateral ventriculomegaly slightly disproportionate to the sulcal spaces although ventricular size is similar and there is degree of supratentorial atrophy. There is again overall mild scattered T2 and FLAIR hyperintense abnormality of the supratentorial periventricular white matter bilaterally and in the deep white matter greatest of frontal parietal lobes, fairly similar in extent allowing for more motion on this exam. Left vertebral artery flow-void is again small in caliber. There has been right lens surgery in interval. There is patchy minimal sphenoid sinus and ethmoid air cell mucosal thickening. There is minimal patchy fluid of the mastoid air cells greater on the left, unchanged. Impression: 1. Findings are similar compared with the previous 2014 exam. There is again third and lateral ventriculomegaly somewhat disproportionate to the sulcal spaces although unchanged in interval. There is again degree of supratentorial atrophy, ventriculomegaly more likely related to more central atrophy than hydrocephalus. There is again scattered overall mild T2 and FLAIR hyperintense signal abnormality of the supratentorial parenchyma bilaterally, could be seen with provided history of inflammatory demyelinating disease or related to chronic microvascular ischemic disease in a patient this age. Electronically signed by: Manny Pagan MD (12/24/2018 4:45 PM) [id number]
== END | disposition home or self-care (01) ==
LOC: KCIC MRI 12:54
PROVIDERS: ATTEND Internal Medicine
DX: M51.37 Other intervertebral disc degeneration, lumbosacral region (principal); M48.07 Spinal stenosis, lumbosacral region; M25.78 Osteophyte, vertebrae; M51.26 Other intervertebral disc displacement, lumbar region; D18.09 Hemangioma of other sites; G31.89 Other specified degenerative diseases of nervous system; G35 Multiple sclerosis; J44.9 Chronic obstructive pulmonary disease, unspecified; F17.200 Nicotine dependence, unspecified, uncomplicated
CPT/HCPCS: 70553; 72148; A9575

== ENCOUNTER 2018-12-30 01:23 | Emergency (ER) | payer MEDICARE ==
[~2018-12-30] VITALS: Ht 172.7 cm; Wt 68.0 kg
[~2018-12-30 01:23] MED LIST changes: -ALEN70TA6 PO; -ASPI-612 PO; -BUDE0.5A NEB; -CIPR250T30 PO; -CIPR500T94 PO; -DILT120C85 PO; -GADOTERATE 7.5 MMOL/15ML VIAL. IVP ONE; -IPRA3AMP29 NEB; -LACT1CAP19 PO; -METR500T PO
[2018-12-30] MEDS ORDERED: IV NORMAL SALINE 1000ML BAG 1,000 ML IV SCH (02:00)
[2018-12-30 02:23] LABS: BASO # 0.1 x10^3/uL (0.0-0.2); BASO % 1 % (0-3); EOS % 0 % (0-3); HEMATOCRIT 35.1 % (36.0-47.0); HEMOGLOBIN 11.8 g/dL (12.0-15.5); LYMPH # 1.4 x10^3/uL (1.0-4.8); LYMPH % 13 % (24-48); MEAN CORPUSCULAR HEMOGLOBIN 30 pg (25-35); MEAN CORPUSCULAR HGB CONC 34 g/dL (31-37); MEAN CORPUSCULAR VOLUME 89 fL (79-100); MONO # 0.8 x10^3/uL (0.0-1.1); MONO % 8 % (0-9); NEUT # 8.2 x10^3uL (1.8-7.7); NEUT % 78 % (31-73); PLATELET COUNT 351 x10^3/uL (140-400); RED BLOOD COUNT 3.96 x10^6/uL (3.50-5.40); RED CELL DISTRIBUTION WIDTH 13.7 % (11.5-14.5); WHITE BLOOD COUNT 10.5 x10^3/uL (4.0-11.0)
--- NOTE | 2018-12-30 02:30 | PHYS DOC ---
Past Medical History Past Medical History: COPD, Other Additional Past Medical Histor: MS Past Surgical History: Hip Replacement, Hysterectomy, Tonsillectomy, Tubal ligation, Other Additional Past Surgical Histo: BACK Alcohol Use: Occasionally Drug Use: None Adult General Chief Complaint Chief Complaint: CONSTIPATION HPI HPI Patient is a 78 year old female who is in by EMS because of constipation. Patient states she usually has bowel movements every day but for the last week she did not have a good bowel movement and had a small amount of stool after having stool softener. Patient complaining of abdominal distention with discomfort feeling in her abdomen with passing large amount of gas. Patient states she was seen by her primary care physician without improvement of her condition. Patient denies fever and chills, nausea and vomiting, fever and chills, urinary symptom. Patient complaining of decrease of her appetite. Patient states she takes gabapentin and other pain medication that she does not remember the name. Patient had abdominal hysterectomy. Review of Systems Review of Systems Constitutional: Denies fever or chills [] Eyes: Denies change in visual acuity, redness, or eye pain [] HENT: Denies nasal congestion or sore throat [] Respiratory: Denies cough or shortness of breath [] Cardiovascular: No additional information not addressed in HPI [] GI: Reports constipation, abdominal pain, denies nausea, vomiting, bloody stools or diarrhea [] : Denies dysuria or hematuria [] Musculoskeletal: Denies back pain or joint pain [] Integument: Denies rash or skin lesions [] Neurologic: Denies headache, focal weakness or sensory changes [] Endocrine: Denies polyuria or polydipsia [] All other systems were reviewed and found to be within normal limits, except as documented in this note. Current Medications Current Medications Current Medications Medications (Trade) Dose Ordered Sig/[place] Start Time Stop Time Status Last Admin Dose Admin Ciprofloxacin (Cipro) 500 mg 1X ONCE 12/30/18 03:30 12/30/18 03:31 DC Metronidazole (Flagyl) 500 mg 1X ONCE 12/30/18 03:30 12/30/18 03:31 DC Sodium Chloride 1,000 ml @ 1,000 mls/hr Q1H 12/30/18 02:00 12/30/18 02:59 DC 12/30/18 02:45 1,000 MLS/HR Allergies Allergies Allergies Coded Allergies Type Severity Reaction Last Updated Verified No Known Drug Allergies 07/05/15 No Physical Exam Physical Exam Constitutional: Mild distress, non-toxic appearance. [] HENT: Normocephalic, atraumatic, oropharynx moist. Eyes: PERRLA, EOMI, conjunctiva normal, no discharge. [] Neck: Normal range of motion, no tenderness, supple, no stridor. [] Cardiovascular: Tachycardia, no murmur [] Lungs & Thorax: Bilateral breath sounds clear to auscultation [] Abdomen: Mildly distended with gas, hyperactive bowel sounds, soft, no tenderness, no masses, no pulsatile masses. Rectal exam with present of cut off [place] showed empty rectum.[] Skin: Warm, dry, no erythema, no rash. [] Back: No tenderness, no CVA tenderness. [] Extremities: No tenderness, no cyanosis, no clubbing, ROM intact, no edema. [] Neurologic: Alert and oriented X 3, normal motor function, normal sensory function, no focal deficits noted. [] Psychologic: Affect anxious, judgement normal, mood normal. [] Current Patient Data Vital Signs Vital Signs Date Time Temp Pulse Resp B/P (MAP) Pulse Ox O2 Delivery O2 Flow Rate FiO2 12/30/18 01:23 98.5 113 18 138/79 (98) 95 Room Air 98.5 Lab Values Laboratory Tests Test 12/30/18 02:10 12/30/18 02:45 White Blood Count 10.5 x10^3/uL (4.0-11.0) Red Blood Count 3.96 x10^6/uL (3.50-5.40) Hemoglobin 11.8 g/dL (12.0-15.5) L Hematocrit 35.1 % (36.0-47.0) L Mean Corpuscular Volume 89 fL (79-100) Mean Corpuscular Hemoglobin 30 pg (25-35) Mean Corpuscular Hemoglobin Concent 34 g/dL (31-37) Red Cell Distribution Width 13.7 % (11.5-14.5) Platelet Count 351 x10^3/uL (140-400) Neutrophils (%) (Auto) 78 % (31-73) H Lymphocytes (%) (Auto) 13 % (24-48) L Monocytes (%) (Auto) 8 % (0-9) Eosinophils (%) (Auto) 0 % (0-3) Basophils (%) (Auto) 1 % (0-3) Neutrophils # (Auto) 8.2 x10^3uL (1.8-7.7) H Lymphocytes # (Auto) 1.4 x10^3/uL (1.0-4.8) Monocytes # (Auto) 0.8 x10^3/uL (0.0-1.1) Eosinophils # (Auto) 0.0 x10^3/uL (0.0-0.7) Basophils # (Auto) 0.1 x10^3/uL (0.0-0.2) Sodium Level 139 mmol/L (136-145) Potassium Level 3.5 mmol/L (3.5-5.1) Chloride Level 103 mmol/L (98-107) Carbon Dioxide Level 27 mmol/L (21-32) Anion Gap 9 (6-14) Blood Urea Nitrogen 15 mg/dL (7-20) Creatinine 0.7 mg/dL (0.6-1.0) Estimated GFR (Cockcroft-Gault) 80.5 BUN/Creatinine Ratio 21 (6-20) H Glucose Level 124 mg/dL (70-99) H Lactic Acid Level 0.8 mmol/L (0.4-2.0) Calcium Level 8.9 mg/dL (8.5-10.1) Total Bilirubin 0.4 mg/dL (0.2-1.0) Aspartate Amino Transferase (AST) 13 U/L (15-37) L Alanine Aminotransferase (ALT) 26 U/L (14-59) Alkaline Phosphatase 162 U/L (46-116) H Total Protein 6.7 g/dL (6.4-8.2) Albumin 2.4 g/dL (3.4-5.0) L Albumin/Globulin Ratio 0.6 (1.0-1.7) L Lipase 84 U/L (73-393) Ethyl Alcohol Level < 10 mg/dL (0-10) Urine Collection Type Void Urine Color Yellow Urine Clarity Clear Urine pH 7.0 Urine Specific [place] 1.010 Urine Protein Negative mg/dL (NEG-TRACE) Urine Glucose (UA) Negative mg/dL (NEG) Urine Ketones (Stick) Negative mg/dL (NEG) Urine Blood Negative (NEG) Urine Nitrite Negative (NEG) Urine Bilirubin Negative (NEG) Urine Urobilinogen Dipstick 0.2 mg/dL (0.2 mg/dL) Urine Leukocyte Esterase Trace (NEG) Urine RBC 3-5 /HPF (0-2) Urine WBC 5-10 /HPF (0-4) Urine Squamous Epithelial Cells Few /LPF Urine Bacteria Moderate /HPF (0-FEW) Laboratory Tests 12/30/18 02:10 Laboratory Tests 12/30/18 02:10 EKG EKG EKG interpreted by me. EKG at 0-11 showed sinus tachycardia at rate of 104, otherwise normal EKG Radiology/Procedures Radiology/Procedures [facility] [address] [place] [address] IMAGING REPORT Signed PATIENT: ANDREW GARNETT ACCOUNT: [id number] : 1940 LOCATION: ER AGE: 78 SEX: F EXAM STATUS: REG ER ORD. PHYSICIAN: RICCI CORONA MD REASON: constipation and abdominal pain PROCEDURE: CT ABDOMEN PELVIS WO CONTRAST PQRS Compliance Statement: One or more of the following individualized dose reduction techniques were utilized for this examination: 1. Automated exposure control 2. Adjustment of the mA and/or kV according to patient size 3. Use of iterative reconstruction technique CT abdomen/pelvis without contrast 12/30/2018 1:51 AM INDICATION: Constipation abdominal pain COMPARISON: CT abdomen/pelvis November 19, 2018 TECHNIQUE: Multiple axial CT images of the abdomen and pelvis were obtained without intravenous contrast. Coronal and sagittal reformats are provided. FINDINGS: Lung bases are clear. Heart size is within normal limits. There is a small hiatal hernia. Evaluation of the solid abdominal viscera is limited by lack of intravenous contrast. Liver, spleen, bilateral adrenal glands, and pancreas are normal in appearance. Gallbladder is contracted. No intrahepatic or extrahepatic biliary ductal dilatation. Abdominal aorta is normal in caliber. Moderate calcified atheromatous plaque is present. No pathologically enlarged lymph nodes are identified. No free fluid or free intraperitoneal air. Moderate colonic diverticulosis. There is focal circumferential wall thickening involving the mid sigmoid colon with adjacent inflammatory changes most compatible with acute diverticulitis. No peridiverticular abscess or perforation. Normal appendix visualized. Small left extrarenal pelvis. No hydronephrosis. No renal calculi. Right total hip arthroplasty is identified with streak artifact limiting evaluation of the right pelvis. Urinary bladder is within normal limits given degree of distention. Spinal augmentation changes are identified at L3. IMPRESSION: 1. Sigmoid diverticulitis with moderate underlying diverticulosis. No peridiverticular abscess or pneumoperitoneum. Correlate with any recent or planned endoscopy. Electronically signed by: Lorin De León MD (12/30/2018 2:44 AM) [id number] DICTATED and SIGNED BY: LORIN DE LEÓN MD DATE: 12/30/18 0244 Course & Med Decision Making Course & Med Decision Making Pertinent Labs and Imaging studies reviewed. (See chart for details) Evaluation of patient in ER showed 78-year-old female patient brought in by EMS because of constipation for almost 2 weeks. Patient had unremarkable physical exam except for anxiety and tachycardia that improved with rest and IV fluid. Rectal exam was empty. Labs was unremarkable except for mild anemia. CT of abdomen and pelvis showed small sigmoid diverticulitis and diverticulosis. Patie nt did not want to stay at Hospital and wanted to try outpatient treatment. Patient treated with Flagyl and Cipro in ER and prescription for Flagyl and Cipro was given. Patient was advised to follow-up with her primary care physician in 2 or 3 days and 10 TLS not getting better. Dragon Disclaimer Dragon Disclaimer This electronic medical record was generated, in whole or in part, using a voice recognition dictation system. Departure Departure Impression: Primary Impression: Sigmoid diverticulitis Additional Impressions: Diverticulosis Constipation Anemia Hypoalbuminemia Anxiety Urinary tract infection Disposition: HOME, SELF-CARE (@0310) Condition: IMPROVED Referrals: JAVIER CEDENO MD (PCP) Patient Instructions: Anemia, Nonspecific-Brief, Constipation, Adult, Dive rticulitis, Diverticulosis, Urinary Tract Infection Additional Instructions: Drink plenty of liquids Follow-up with your primary care physician in 2-3 days Return to ER if not getting better Scripts Ciprofloxacin Hcl (CIPRO) 500 Mg Tablet 1 TAB PO BID, #14 TAB Prov: RICCI CORONA MD 12/30/18 Metronidazole (FLAGYL) 500 Mg Tablet 1 TAB PO Q8HRS, #21 TAB Prov: RICCI CORONA MD 12/30/18 Problem Qualifiers Additional Impressions: Constipation Constipation type: unspecified constipation type Qualified Codes: K59.00 - Constipation, unspecified Anemia Anemia type: unspecified type Qualified Codes: D64.9 - Anemia, unspecified Urinary tract infection Urinary tract infection type: site unspecified Hematuria presence: without hematuria Qualified Codes: N39.0 - Urinary tract infection, site not specified RICCI CORONA MD Dec 30, 2018 02:30
[2018-12-30 02:31] LABS: CALCIUM 8.9 mg/dL (8.5-10.1); CREATININE 0.7 mg/dL (0.6-1.0); GFR 80.5; POTASSIUM 3.5 mmol/L (3.5-5.1)
[2018-12-30 02:37] LABS: ALBUMIN 2.4 g/dL (3.4-5.0); ALBUMIN/GLOBULIN RATIO 0.6 (1.0-1.7); TOTAL BILIRUBIN 0.4 mg/dL (0.2-1.0); TOTAL PROTEIN 6.7 g/dL (6.4-8.2)
--- NOTE | 2018-12-30 02:48 | RAD ---
PQRS Compliance Statement: One or more of the following individualized dose reduction techniques were utilized for this examination: 1. Automated exposure control 2. Adjustment of the mA and/or kV according to patient size 3. Use of iterative reconstruction technique CT abdomen/pelvis without contrast 12/30/2018 1:51 AM INDICATION: Constipation abdominal pain COMPARISON: CT abdomen/pelvis November 19, 2018 TECHNIQUE: Multiple axial CT images of the abdomen and pelvis were obtained without intravenous contrast. Coronal and sagittal reformats are provided. FINDINGS: Lung bases are clear. Heart size is within normal limits. There is a small hiatal hernia. Evaluation of the solid abdominal viscera is limited by lack of intravenous contrast. Liver, spleen, bilateral adrenal glands, and pancreas are normal in appearance. Gallbladder is contracted. No intrahepatic or extrahepatic biliary ductal dilatation. Abdominal aorta is normal in caliber. Moderate calcified atheromatous plaque is present. No pathologically enlarged lymph nodes are identified. No free fluid or free intraperitoneal air. Moderate colonic diverticulosis. There is focal circumferential wall thickening involving the mid sigmoid colon with adjacent inflammatory changes most compatible with acute diverticulitis. No peridiverticular abscess or perforation. Normal appendix visualized. Small left extrarenal pelvis. No hydronephrosis. No renal calculi. Right total hip arthroplasty is identified with streak artifact limiting evaluation of the right pelvis. Urinary bladder is within normal limits given degree of distention. Spinal augmentation changes are identified at L3. IMPRESSION: 1. Sigmoid diverticulitis with moderate underlying diverticulosis. No peridiverticular abscess or pneumoperitoneum. Correlate with any recent or planned endoscopy. Electronically signed by: Judy Lopez MD (12/30/2018 2:44 AM) [facility]
[2018-12-30 03:02] LABS: BILIRUBIN,URINE NEGATIVE (NEG); CLARITY,URINE CLEAR; COLOR,URINE YELLOW; NITRITE,URINE NEGATIVE (NEG); PROTEIN,URINE NEGATIVE (NEG-TRACE); UROBILINOGEN,URINE 0.2 mg/dL (0.2 mg/dL)
[2018-12-30] MEDS ORDERED: CIPR500T94 PO (03:05)
[2018-12-30] MEDS ORDERED: METR500T PO (03:05)
[2018-12-30 03:11] LABS: BACTERIA,URINE MODERATE /HPF (0-FEW); SQUAMOUS EPITHELIAL CELL,UR FEW /LPF
[2018-12-30 03:30] VITALS: BP 126/58
[2018-12-30] MEDS ORDERED: CIPROFLOXACIN HCL 250 MG TABLET. PO ONE (03:30)
[2018-12-30] MEDS ORDERED: metroNIDAZOLE 500 MG TABLET PO ONE (03:30)
--- NOTE | 2018-12-30 07:11 | EKG ---
[facility] [address] [place] [address] Test Date: 2018-12-30 Test Time: 02:11:18 Pat Name: ANDREW GARNETT Department: Room: Gender: F Rejogger: NILSON : 1940 Requested By: RICCI CORONA Order Number: [id number] Reading MD: Measurements Intervals [place] Rate: 104 P: 45 GA: 176 QRS: 38 QRSD: 74 T: 19 QT: 322 QTc: 429 Interpretive Statements SINUS TACHYCARDIA OTHERWISE NORMAL ECG RI6.01 No previous ECG available for comparison
== END 2018-12-30 04:15 | disposition home or self-care (01) ==
LOC: ER 01:23
DX: K57.32 Diverticulitis of large intestine without perforation or abscess without bleeding (principal); R00.0 Tachycardia, unspecified; R14.0 Abdominal distension (gaseous); E88.09 Other disorders of plasma-protein metabolism, not elsewhere classified; K59.00 Constipation, unspecified; F41.9 Anxiety disorder, unspecified; N39.0 Urinary tract infection, site not specified; D64.9 Anemia, unspecified; J44.9 Chronic obstructive pulmonary disease, unspecified; Z90.710 Acquired absence of both cervix and uterus; Z90.89 Acquired absence of other organs; Z98.51 Tubal ligation status; Z96.649 Presence of unspecified artificial hip joint
CPT/HCPCS: 36415; 74176; 80053; 81001; 83605; 83690; 85025; 87086; 93005; 99285; G0480; J7030

== ENCOUNTER → 2019-09-01 | Outpatient (CLI) | payer MEDICARE ==
[2019-01-05 10:55] VITALS: BP 111/64
[~2019-09-01] MED LIST changes: +ALEN70TA6 PO; +ASPI-612 PO; +BUDE0.5A NEB; +CIPR250T30 PO; +CIPR500T94 PO; +DILT120C99 PO; +GADOTERATE 7.5 MMOL/15ML VIAL. IVP ONE; +IPRA3AMP29 NEB; +LACT1CAP19 PO; +METR500T PO
--- NOTE | 2019-09-01 11:29 | KCIC ---
MRI Brain with and without contrast History: Multiple sclerosis, gait disorder, visual changes, worsening left foot drop, unsteady gait Technique: Multiplanar, multi sequential pre and postcontrast MR imaging was performed of the brain. Comparison: December 24, 2018 Findings: There is again mild third and lateral ventriculomegaly again somewhat disproportionate to the sulcal spaces. There is again scattered T2 and FLAIR hyperintense abnormality of the supratentorial parenchyma bilaterally, again more confluent signal change of the periventricular white matter about the lateral ventricles but also some scattered foci in the deep white matter. Allowing for motion on both exams, overall extent of signal abnormality is fairly similar. Small focus of T2 and FLAIR hyperintense signal of the right nita is similar. There is no new nodular parenchymal or leptomeningeal enhancement, midline shift, or extra-axial fluid collection. Left vertebral artery flow-void is again small in caliber. There has been lens surgery on the right. There is patchy negligible ethmoid air cell and sphenoid sinus mucosal thickening. There is patchy minimal fluid and thickening of the left mastoid air cells, minimal thickening on the right. Impression: 1. There is again mild third and lateral ventriculomegaly somewhat disproportionate to the sulcal spaces although similar, again may be due to component of more central supratentorial atrophy rather than hydrocephalus given stability. There is again nonspecific T2 and FLAIR hyperintense signal abnormality of the supratentorial parenchyma bilaterally not significantly changed, could be seen with provided history of inflammatory demyelinating disease or chronic microvascular ischemic disease in a patient this age. There is no evidence of recent infarct or new abnormal intracranial enhancement. Electronically signed by: Manny Pagan MD (09/01/2019 11:26 AM) [facility]
== END | disposition home or self-care (01) ==
LOC: KCIC MRI 10:00
PROVIDERS: ATTEND Psychiatry & Neurology Neurology with Special Qualifications in Child Neurology
DX: G35 Multiple sclerosis (principal); R26.9 Unspecified abnormalities of gait and mobility
CPT/HCPCS: 70553; 82565; A9575

== ENCOUNTER 2019-12-10 23:16 | Inpatient (IN) | payer MEDICARE ==
[~2019-12-10] VITALS: Ht 172.7 cm; Wt 73.2 kg
[~2019-12-10 23:16] MED LIST changes: -GADOTERATE 7.5 MMOL/15ML VIAL. IVP ONE
--- NOTE | 2019-12-10 23:43 | PHYS DOC ---
Past Medical History Past Medical History: COPD Additional Past Medical Histor: MS Past Surgical History: Hip Replacement, Hysterectomy, Tonsillectomy, Tubal ligation, Other Additional Past Surgical Histo: BACK Smoking Status: Current Every Day Smoker Alcohol Use: Occasionally Drug Use: None General Adult EDM: Chief Complaint: MECHANICAL FALL HPI: HPI: Patient is a 79 year old female presenting to the ED with a chief complaint of a mechanical fall. Patient states that she was walking out to see a movie tonight with could not find her walker and so she fell and injured herself. Patient denies loss of consciousness. Patient complains of pain in her right hip and right thigh. Patient states that she had a right hip replacement done previously. Patient denies any other injury. Review of Systems: Review of Systems: Constitutional: Denies fever or chills. [] Eyes: Denies change in visual acuity. [] HENT: Denies nasal congestion or sore throat. [] Respiratory: Denies cough or shortness of breath. [] Cardiovascular: Denies chest pain or edema. [] GI: Denies abdominal pain, nausea, vomiting, bloody stools or diarrhea. [] : Denies dysuria. [] Musculoskeletal: Complains of right hip pain and right thigh pain [] Neurologic: Denies headache, focal weakness or sensory changes. [] Heart Score: Risk Factors: Risk Factors: DM, Current or recent (<one month) smoker, HTN, HLP, family history of CAD, obesity. Risk Scores: Score 0 - 3: 2.5% MACE over next 6 weeks - Discharge Home Score 4 - 6: 20.3% MACE over next 6 weeks - Admit for Clinical Observation Score 7 - 10: 72.7% MACE over next 6 weeks - Early Invasive Strategies Allergies: Allergies: Allergies Coded Allergies Type Severity Reaction Last Updated Verified No Known Drug Allergies 07/05/15 No Physical Exam: PE: Constitutional: Well developed, well nourished, no acute distress, non-toxic appearance. [] HENT: Normocephalic, atraumatic Eyes: EOMI Neck: Normal range of motion, Supple Cardiovascular:Heart rate regular rhythm Lungs & Thorax: Bilateral breath sounds clear to auscultation [] Abdomen: Bowel sounds normal, soft, no tenderness Extremities: Tenderness in the right hip and right thigh. Right knee has normal range of motion. Neurovascular intact distal to injury. Neurologic: Alert and oriented X 3 EKG: EKG: [] Radiology/Procedures: Radiology/Procedures: [] Impression: Femur xray IMPRESSION: There is now a nondisplaced periprosthetic fracture about the distal right femoral stem. Course & Med Decision Making: Course & Med Decision Making Pertinent Imaging studies reviewed. (See chart for details) Ordered x-ray of the right hip and pelvis and right femur. Patient states that she does not want any pain medicine currently. X-ray shows that patient has a nondisplaced femur fracture that is distal to the prosthetic stem. Patient states that the hip replacement was done over 10 years ago and the orthopedic surgeon has moved out of state. We will consult with orthopedic surgery. I discussed case with Dr. Lindquist at 1:35 AM. Patient will be admitted to hospital service with Ortho consultation. I discussed results and plan of care with patient. Edgardo Disclaimer: Edgardo Disclaimer: This electronic medical record was generated, in whole or in part, using a voice recognition dictation system. Departure Departure Impression: Primary Impression: Femur fracture, right Disposition: ADMITTED INPATIENT Admitting Physician: DARRIAN Condition: GOOD Referrals: JAVIER CEDENO MD (PCP) Justicifation of Admission Dx: Justifications for Admission: Justification of Admission Dx: Yes Fracture: Fracture HIPOLITO ARIZA DO Dec 10, 2019 23:43
--- NOTE | 2019-12-11 00:23 | RAD ---
EXAM: AP pelvis, AP and lateral views right hip AP and lateral views right femur DATE: 12/10/2019 12:00 AM INDICATION: Reason: fall / Spl. Instructions: / History: COMPARISON: No Prior FINDINGS: Changes of right total hip arthroplasty are again seen. There is now a nondisplaced periprosthetic fracture about the distal right femoral stem. IMPRESSION: There is now a nondisplaced periprosthetic fracture about the distal right femoral stem. Electronically signed by: Hayes Sarmiento MD (12/11/2019 12:20 AM) [facility]
[2019-12-11] MEDS ORDERED: MORPHINE SULFATE 2 MG/ML VIAL. IV PRN (02:45)
[2019-12-11 03:00] VITALS: BP 144/61
[2019-12-11] MEDS ORDERED: IV NORMAL SALINE 1000ML BAG 1,000 ML IV SCH (03:00)
[2019-12-11] MEDS: MORPHINE SULFATE 2 MG/ML VIAL. IV PRN ×5 (03:04→23:41)
[2019-12-11 07:00] VITALS: BP 122/74
--- NOTE | 2019-12-11 08:31 | PDOC2 ---
CONSULT Date of Consult Date of Consult DATE: 12/11/19 TIME: 08:26 Reason for Consult Reason for Consult: Right hip fracture Referring Physician Referring Physician: Kalpesh Identification/Chief Complaint Chief Complaint Right thigh pain Source Source: Patient History of Present Illness Reason for Visit: Patient is a very pleasant 79-year-old female who had an uncertain twisting episode early this morning and noted the acute onset of pain at her right mid thigh and inability to ambulate. Prior to this, she had no hip or thigh problems whatsoever. She thinks her her hip replacement was about 10 years ago and she feels like it has been doing very well. She is currently complaining of thigh pain, worse with any attempted weightbearing or movement of her leg. The pain does not radiate. It is better at rest. She feels like her pain is currently controlled. She denies hitting her head or any precipitating events prior to her fall. Past Medical History Cardiovascular: No pertinent hx Pulmonary: COPD CENTRAL NERVOUS SYSTEM: Other GI: Constipation, Diverticulosis Heme/Onc: No pertinent hx Hepatobiliary: No pertinent hx Psych: No pertinent hx Rheumatologic: No pertinent hx Infectious disease: No pertinent hx Renal/: No pertinent hx Endocrine: No pertinent hx Past Surgical History Past Surgical History: Total hip replacement, Tubal Ligation, Other Family History Family History: Stroke Social History <1 pack per day ALCOHOL: none Drugs: None Lives: Alone Current Problem List Problem List Problems Medical Problems: (1) Femur fracture, right Status: Acute Current Medications Current Medications Current Medications Morphine Sulfate (Morphine Sulfate) 2 mg PRN Q2HR PRN IV MODERATE PAIN 4-6 Last administered on 12/11/19at 06:13; Start 12/11/19 at 02:45 Morphine Sulfate (Morphine Sulfate) 4 mg PRN Q2HR PRN IV SEVERE PAIN 7-10; Start 12/11/19 at 02:45 Sodium Chloride 1,000 ml @ 75 mls/hr [id number] IV Last administered on 12/11/19at 03:04; Start 12/11/19 at 03:00 Active Scripts Active Culturelle (Lactobacillus Rhamnosus Gg) 1 Each Cap.sprink 1 Cap PO BID 10 Days Budesonide 0.5 Mg/2 Ml Ampul.neb 0.5 Mg NEB RTBID Aspirin Ec (Aspirin) 81 Mg Tablet.dr 81 Mg PO DAILYWBKFT Duoneb 0.5-3(2.5) Mg/3 Ml (Albuterol/Ipratropium) 3 Ml Ampul.neb 3 Ml NEB RTQID Diltiazem 24HR Cd (Diltiazem Hcl) 120 Mg Cap.er.24h 120 Mg PO DAILY MDD 1 Flagyl (Metronidazole) 500 Mg Tablet 500 Mg PO Q8HRS 10 Days Cipro (Ciprofloxacin Hcl) 250 Mg Tablet 500 Mg PO BID 10 Days Lorazepam 0.5 Mg Tablet 0.5 Mg PO HS Reported Alendronate Sodium 70 Mg Tablet 70 Mg PO QM Gabapentin 600 Mg Tablet 600 Mg PO HS Allergies Allergies: Coded Allergies: No Known Drug Allergies (Unverified , 07/05/15) ROS General: No: Chills, Night Sweats, Fatigue, Malaise, Appetite, Other PSYCHOLOGICAL ROS: No: Anxiety, Behavioral Disorder, Concentration difficultie, Decreased libido, Depression, Disorientation, Hallucinations, Hostility, Ir ritablity, Memory difficulties, Mood Swings, Obsessive thoughts, Physical abuse, Sexual abuse, Sleep disturbances, Suicidal ideation, Other Eyes: No Blurry vision, No Decreased vision, No Double vision, No Dry eyes, No Excessive tearing, No Eye Pain, No Itchy Eyes, No Loss of vision, No Photophobia, No Scotomata, No Uses contacts, No Uses glasses, No Other HEENT: No: Heacaches, Visual Changes, Hearing change, Nasal congestion, Nasal discharge, Oral lesions, Sinus pain, Sore Throat, Epistaxis, Sneezing, Snoring, Tinnitus, Vertigo, Vocal changes, Other ALLERGY AND IMMUNOLOGY: No: Hives, Insect Bite Sensitivity, Itchy/Watery Eyes, Nasal Congestion, Post Nasal Drip, Seasonal Allergies, Other Hematological and Lymphatic: No: Bleeding Problems, Blood Clots, Blood Transfusions, Brusing, Night Sweats, Pallor, Swollen Lymph Nodes, Other ENDOCRINE: No: Breast Changes, Galactorrhea, Hair Pattern Changes, Hot Flashes, Malaise/lethargy, Mood Swings, Palpitations, Polydipsia/polyuria, Skin Changes, Temperature Intolerance, Unexpected Weight Changes, Other Respiratory: YES: Cough; No: Hemoptysis, Orthopnea, Pleuritic Pain, Shortness of breath, SOB with excertion, Sputum Changes, Stridor, Tachypnea, Wheezing, Other Cardiovascular: No Chest Pain, No Palpitations, No Orthopnea, No Paroxysmal Noc. Dyspnea, No Edema, No Lt Headedness, No Other Gastrointestinal: No Nausea, No Vomiting, No Abdominal Pain, No Diarrhea, No Constipation, No Melena, No Hematochezia, No Other Genitourinary: No Dysuria, No Frequency, No Incontinence, No Hematuria, No Retention, No Discharge, No Urgency, No Pain, No Flank Pain, No Other, No , No , No , No , No , No , No Musculoskeletal: Yes Joint Pain, Yes Joint Stiffness Neurological: No Behavorial Changes, No Bowel/Bladder ControlChng, No Confusion, No Dizziness, No Gait Disturbance, No Headaches, No Impaired Coord/balance, No Memory Loss, No Numbness/Tingling, No Seizures, No Speech Problems, No Tremors, No Visual Changes, No Weakness, No Other Skin: No Dry Skin, No Eczema, No Hair Changes, No Lumps, No Mole Changes, No Mottling, No Nail Changes, No Pruritus, No Rash, No Skin Lesion Changes, No Other, No Acne Physical Exam General: Alert, Oriented X3 HEENT: Atraumatic, EOMI Lungs: Other (Respirations are unlabored with symmetric chest rise) Heart: Regular rate Abdomen: Soft, No tenderness Extremities: No edema, Normal pulses Neuro: Normal speech, Strength at 5/5 X4 ext, Sensation intact Psych/Mental Status: Mental status NL, Mood NL MUSCULOSKELETAL: Other (No obvious gross deformity or swelling at either lower extremity. She is tender mid thigh on the right side. Old healed posterior lateral hip incision is seen.) Vitals VITALS Vital Signs Date Time Temp Pulse Resp B/P (MAP) Pulse Ox O2 Delivery O2 Flow Rate FiO2 12/11/19 07:50 Room Air 12/11/19 03:00 98.7 71 18 144/61 (88) 95 98.7 Labs Labs Labs are pending at the time of this dictation including COVID test Images Images Hip and pelvis as well as femur x-rays were reviewed. She has a nondisplaced fracture at the tip of a well fixed hip arthroplasty stem Assessment/Plan Assessment/Plan I discussed her injury with her and answered her questions. I recommended surgery for improved mobilization. I discussed the risks, benefits, and alternatives including bleeding, infection, failure of healing, need for possible secondary procedures, expected rehab and recovery, risk of blood clots and need for anticoagulation, general medical issues as well, among others. She would like to proceed. We will plan on surgery tomorrow morning, I will order blood work, we will follow-up on the COVID test. JOSE SANCHEZ II, MD Dec 11, 2019 08:31
[2019-12-11 10:01] LABS: BASO % 0 % (0-3); EOS % 0 % (0-3); HEMATOCRIT 37.8 % (36.0-47.0); HEMOGLOBIN 13.1 g/dL (12.0-15.5); LYMPH # 1.5 x10^3/uL (1.0-4.8); LYMPH % 16 % (24-48); MEAN CORPUSCULAR HEMOGLOBIN 31 pg (25-35); MEAN CORPUSCULAR HGB CONC 35 g/dL (31-37); MEAN CORPUSCULAR VOLUME 90 fL (79-100); MONO # 0.7 x10^3/uL (0.0-1.1); MONO % 8 % (0-9); NEUT # 6.6 x10^3/uL (1.8-7.7); NEUT % 75 % (31-73); PLATELET COUNT 172 x10^3/uL (140-400); RED BLOOD COUNT 4.22 x10^6/uL (3.50-5.40); RED CELL DISTRIBUTION WIDTH 13.9 % (11.5-14.5); WHITE BLOOD COUNT 8.9 x10^3/uL (4.0-11.0)
[2019-12-11 10:05] LABS: CALCIUM 7.8 mg/dL (8.5-10.1); CREATININE 0.8 mg/dL (0.6-1.0); GFR 68.8; POTASSIUM 4.2 mmol/L (3.5-5.1)
[2019-12-11 11:00] VITALS: BP 131/68
--- NOTE | 2019-12-11 11:16 | PDOC1 ---
History and Physical Date of Admission Date of Admission DATE: 12/11/19 TIME: 11:14 Identification/Chief Complaint Chief Complaint seen in er AFTER twisting motion of leg, unable to ambulatecomplaining of thigh pain, worse with any attempted weight-bearing or movement of her leg. Past Medical History Past Medical History Past Medical History Past Medical History Past Medical History: COPD Additional Past Medical Histor: MS Past Surgical History: Hip Replacement, Hysterectomy, Tonsillectomy, Tubal ligation, Other Additional Past Surgical Histo: BACK Smoking Status: Current Every Day Smoker Alcohol Use: Occasionally Drug Use: None FHX COPD Cardiovascular: No pertinent hx Pulmonary: COPD CENTRAL NERVOUS SYSTEM: Other GI: Constipation, Diverticulosis Heme/Onc: No pertinent hx Hepatobiliary: No pertinent hx Psych: No pertinent hx Rheumatologic: No pertinent hx Infectious disease: No pertinent hx Renal/: No pertinent hx Endocrine: No pertinent hx Past Surgical History Past Surgical History: Total hip replacement, Tubal Ligation, Other Family History Family History: Chronic Bronchitis, High Cholestrol, Stroke Social History Smoke: <1 pack per day ALCOHOL: none Drugs: None Current Problem List Problem List Problems Medical Problems: (1) Femur fracture, right Status: Acute Current Medications Current Medications Current Medications Morphine Sulfate (Morphine Sulfate) 2 mg PRN Q2HR PRN IV MODERATE PAIN 4-6 Last administered on 12/11/19at 06:13; Start 12/11/19 at 02:45 Morphine Sulfate (Morphine Sulfate) 4 mg PRN Q2HR PRN IV SEVERE PAIN 7-10; Start 12/11/19 at 02:45 Sodium Chloride 1,000 ml @ 75 mls/hr [id number] IV Last administered on 12/11/19at 03:04; Start 12/11/19 at 03:00 Fentanyl Citrate (Fentanyl 2ml Vial) 25 mcg PRN Q5MIN PRN IV MILD PAIN 1-3; Start 12/12/19 at 07:00; Stop 12/12/19 at 20:01 Fentanyl Citrate (Fentanyl 2ml Vial) 50 mcg PRN Q5MIN PRN IV MODERATE TO SEVERE PAIN; Start 12/12/19 at 07:00; Stop 12/12/19 at 20:00 Morphine Sulfate (Morphine Sulfate) 1 mg PRN Q10MIN PRN IV SEVERE PAIN 7-10; Start 12/12/19 at 07:00; Stop 6/7/20 at 20:00 Ringer's Solution 1,000 ml @ 30 mls/hr Q24H IV ; Start 12/12/19 at 07:00; Stop 12/12/19 at 18:59 Hydromorphone HCl (Dilaudid) 0.5 mg PRN Q10MIN PRN IV SEV PAIN, Second choice; Start 12/12/19 at 07:00; Stop 12/12/19 at 20:00 Prochlorperazine Edisylate (Compazine) 5 mg PACU PRN PRN IV NAUSEA, MRX1; Start 12/12/19 at 07:00; Stop 12/12/19 at 20:00 Active Scripts Active Culturelle (Lactobacillus Rhamnosus Gg) 1 Each Cap.sprink 1 Cap PO BID 10 Days Budesonide 0.5 Mg/2 Ml Ampul.neb 0.5 Mg NEB RTBID Aspirin Ec (Aspirin) 81 Mg Tablet.dr 81 Mg PO DAILYWBKFT Duoneb 0.5-3(2.5) Mg/3 Ml (Albuterol/Ipratropium) 3 Ml Ampul.neb 3 Ml NEB RTQID Diltiazem 24HR Cd (Diltiazem Hcl) 120 Mg Cap.er.24h 120 Mg PO DAILY MDD 1 Flagyl (Metronidazole) 500 Mg Tablet 500 Mg PO Q8HRS 10 Days Cipro (Ciprofloxacin Hcl) 250 Mg Tablet 500 Mg PO BID 10 Days Lorazepam 0.5 Mg Tablet 0.5 Mg PO HS Reported Alendronate Sodium 70 Mg Tablet 70 Mg PO QM Gabapentin 600 Mg Tablet 600 Mg PO HS Allergies Allergies: Coded Allergies: No Known Drug Allergies (Unverified , 07/05/15) ROS Review of System Constitutional: Denies fever or chills. [] Eyes: Denies change in visual acuity. [] HENT: Denies nasal congestion or sore throat. [] Respiratory: Denies cough or shortness of breath. [] Cardiovascular: Denies chest pain or edema. [] GI: Denies abdominal pain, nausea, vomiting, bloody stools or diarrhea. [] : Denies dysuria. [] Musculoskeletal: Complains of right hip pain and right thigh pain [] Neurologic: Denies headache, focal weakness or sensory changes. [] 14 pt ros otherwise neg PSYCHOLOGICAL ROS: YES: Anxiety; No: Behavioral Disorder, Concentration difficultie, Decreased libido, Depression, Disorientation, Hallucinations, Hostility, Irritablity, Memory difficulties, Mood Swings, Obsessive thoughts, Physical abuse, Sexual abuse, Sleep disturbances, Suicidal ideation, Other Eyes: Yes Decreased vision; No Blurry vision, No Double vision, No Dry eyes, No Excessive tearing, No Eye Pain, No Itchy Eyes, No Loss of vision, No Photophobia, No Scotomata, No Uses contacts, No Uses glasses, No Other ALLERGY AND IMMUNOLOGY: No: Hives, Insect Bite Sensitivity, Itchy/Watery Eyes, Nasal Congestion, Post Nasal Drip, Seasonal Allergies, Other Hematological and Lymphatic: No: Bleeding Problems, Blood Clots, Blood Transfusions, Brusing, Night Sweats, Pallor, Swollen Lymph Nodes, Other Respiratory: No: Cough, Hemoptysis, Orthopnea, Pleuritic Pain, Shortness of breath, SOB with excertion, Sputum Changes, Stridor, Tachypnea, Wheezing, Other Cardiovascular: No Chest Pain, No Palpitations, No Orthopnea, No Paroxysmal N oc. Dyspnea, No Edema, No Lt Headedness, No Other Gastrointestinal: No Nausea, No Vomiting, No Abdominal Pain, No Diarrhea, No Constipation, No Melena, No Hematochezia, No Other Genitourinary: No Dysuria, No Frequency, No Incontinence, No Hematuria, No Retention, No Discharge, No Urgency, No Pain, No Flank Pain, No Other, No , No , No , No , No , No , No Musculoskeletal: Yes Gait Disturbance, Yes Joint Pain Neurological: Yes Gait Disturbance; No Behavorial Changes, No Bowel/Bladder ControlChng, No Confusion, No Dizziness, No Headaches, No Impaired Coord/balance, No Memory Loss, No Numbness/Tingling, No Seizures, No Speech Problems, No Tremors, No Visual Changes, No Weakness, No Other Skin: No Dry Skin, No Eczema, No Hair Changes, No Lumps, No Mole Changes, No Mottling, No Nail Changes, No Pruritus, No Rash, No Skin Lesion Changes, No Other, No Acne Physical Exam Physical Exam Constitutional: Well developed, well nourished, no acute distress, non-toxic appearance. [] HENT: Normocephalic, atraumatic Eyes: EOMI Neck: Normal range of motion, Supple Cardiovascular:Heart rate regular rhythm Lungs & Thorax: Bilateral breath sounds clear to auscultation [] Abdomen: Bowel sounds normal, soft, no tenderness Extremities: Tenderness in the right hip and right thigh. Right knee has normal range of motion. Neurovascular intact distal to injury. Neurologic: Alert and oriented X 3 General: Alert, Oriented X3, Cooperative, No acute distress HEENT: Atraumatic, EOMI, Mucous membr. moist/pink Lungs: Clear to auscultation, Normal air movement Heart: S1S2, RRR, no thrills Breasts: Not examined Abdomen: Normal bowel sounds, Soft Rectal Exam: not examined PELVIC: Examination not indicated Extremities: No cyanosis Neuro: Normal speech, Sensation intact, Cranial nerves 3-12 NL Psych/Mental Status: Mental status NL, Mood NL Vitals Vitals Vital Signs Date Time Temp Pulse Resp B/P (MAP) Pulse Ox O2 Delivery O2 Flow Rate FiO2 12/11/19 07:50 Room Air 12/11/19 07:00 97.6 98 20 122/74 (90) 94 97.6 Labs Labs Laboratory Tests Test 12/11/19 09:25 White Blood Count 8.9 x10^3/uL (4.0-11.0) Red Blood Count 4.22 x10^6/uL (3.50-5.40) Hemoglobin 13.1 g/dL (12.0-15.5) Hematocrit 37.8 % (36.0-47.0) Mean Corpuscular Volume 90 fL (79-100) Mean Corpuscular Hemoglobin 31 pg (25-35) Mean Corpuscular Hemoglobin Concent 35 g/dL (31-37) Red Cell Distribution Width 13.9 % (11.5-14.5) Platelet Count 172 x10^3/uL (140-400) Neutrophils (%) (Auto) 75 % (31-73) Lymphocytes (%) (Auto) 16 % (24-48) Monocytes (%) (Auto) 8 % (0-9) Eosinophils (%) (Auto) 0 % (0-3) Basophils (%) (Auto) 0 % (0-3) Neutrophils # (Auto) 6.6 x10^3/uL (1.8-7.7) Lymphocytes # (Auto) 1.5 x10^3/uL (1.0-4.8) Monocytes # (Auto) 0.7 x10^3/uL (0.0-1.1) Eosinophils # (Auto) 0.0 x10^3/uL (0.0-0.7) Basophils # (Auto) 0.0 x10^3/uL (0.0-0.2) Sodium Level 141 mmol/L (136-145) Potassium Level 4.2 mmol/L (3.5-5.1) Chloride Level 107 mmol/L (98-107) Carbon Dioxide Level 23 mmol/L (21-32) Anion Gap 11 (6-14) Blood Urea Nitrogen 19 mg/dL (7-20) Creatinine 0.8 mg/dL (0.6-1.0) Estimated GFR (Cockcroft-Gault) 68.8 Glucose Level 140 mg/dL (70-99) Calcium Level 7.8 mg/dL (8.5-10.1) Laboratory Tests Test 12/11/19 09:25 White Blood Count 8.9 x10^3/uL (4.0-11.0) Red Blood Count 4.22 x10^6/uL (3.50-5.40) Hemoglobin 13.1 g/dL (12.0-15.5) Hematocrit 37.8 % (36.0-47.0) Mean Corpuscular Volume 90 fL (79-100) Mean Corpuscular Hemoglobin 31 pg (25-35) Mean Corpuscular Hemoglobin Concent 35 g/dL (31-37) Red Cell Distribution Width 13.9 % (11.5-14.5) Platelet Count 172 x10^3/uL (140-400) Neutrophils (%) (Auto) 75 % (31-73) Lymphocytes (%) (Auto) 16 % (24-48) Monocytes (%) (Auto) 8 % (0-9) Eosinophils (%) (Auto) 0 % (0-3) Basophils (%) (Auto) 0 % (0-3) Neutrophils # (Auto) 6.6 x10^3/uL (1.8-7.7) Lymphocytes # (Auto) 1.5 x10^3/uL (1.0-4.8) Monocytes # (Auto) 0.7 x10^3/uL (0.0-1.1) Eosinophils # (Auto) 0.0 x10^3/uL (0.0-0.7) Basophils # (Auto) 0.0 x10^3/uL (0.0-0.2) Sodium Level 141 mmol/L (136-145) Potassium Level 4.2 mmol/L (3.5-5.1) Chloride Level 107 mmol/L (98-107) Carbon Dioxide Level 23 mmol/L (21-32) Anion Gap 11 (6-14) Blood Urea Nitrogen 19 mg/dL (7-20) Creatinine 0.8 mg/dL (0.6-1.0) Estimated GFR (Cockcroft-Gault) 68.8 Glucose Level 140 mg/dL (70-99) Calcium Level 7.8 mg/dL (8.5-10.1) Images Images EXAM: AP pelvis, AP and lateral views right hip AP and lateral views right femur DATE: 12/10/2019 12:00 AM INDICATION: Reason: fall / Spl. Instructions: / History: COMPARISON: No Prior FINDINGS: Changes of right total hip arthroplasty are again seen. There is now a nondisplaced periprosthetic fracture about the distal right femoral stem. IMPRESSION: There is now a nondisplaced periprosthetic fracture about the distal right femoral stem. Electronically signed by: Hayes Sarmiento MD (12/11/2019 12:20 AM) [facility] DICTATED and SIGNED BY: HAYES SARMIENTO MD VTE Prophylaxis Ordered VTE Prophylaxis Devices: No VTE Pharmacological Prophylaxi: Yes Assessment/Plan Assessment/Plan IMPRESSION: MECHANICAL FALL nondisplaced periprosthetic fracture about the distal right femoral stem. Changes of right total hip arthroplasty are again seen ON X-RAY hx osteoporosis COPD with continued tobacco abuse PLAN ADMIT Consult ortho dvt prophylaxis npo iv pain control DUONEBS QID d/w RN Justicifation of Admission Dx: Justifications for Admission: Justification of Admission Dx: Yes Comments: ACUTE FEMORAL FRACTURE, INTRACTABLE PAIN IN NEED OF SURGERY ANA MARIA SIDDIQUI MD Dec 11, 2019 11:16
[2019-12-11] MEDS ORDERED: 0.9 % SODIUM CHLORIDE 10 ML DISP.SYRIN. IV PRN (11:30)
[2019-12-11] MEDS ORDERED: ONDANSETRON PF 4 MG/2 ML VIAL. IV PRN (11:30)
[2019-12-11] MEDS ORDERED: cloNIDine HCL 0.1 MG TABLET PO PRN (11:30)
[2019-12-11] MEDS ORDERED: ZOLPIDEM 5 MG TABLET. PO PRN (11:30)
[2019-12-11] MEDS ORDERED: guaiFENesin ORAL 200 MG/10 ML LIQUID. PO PRN (11:30)
[2019-12-11] MEDS ORDERED: ACETAMINOPHEN 325 MG TABLET. PO PRN (11:30)
[2019-12-11] MEDS ORDERED: MAG HYDROX/ALUMINUM HYD/SIMETH 30 ML ORAL.SUSP PO PRN (11:30)
[2019-12-11] MEDS ORDERED: SODIUM PHOSPHATES 19/7GM 133 ML ENEMA. PR PRN (11:30)
[2019-12-11] MEDS: ASPIRIN ENTERIC COATED 81 MG TABLET.DR. PO SCH (11:54)
[2019-12-11] MEDS: LACTOBACILLUS RHAMNOSUS GG 1 CAPSULE. PO SCH ×2 (11:54→21:05)
[2019-12-11] MEDS: IV NORMAL SALINE 1000ML BAG 1,000 ML IV SCH ×2 (11:54→17:48)
[2019-12-11] MEDS ORDERED: IPRATRPIUM/ALBUTEROL 0.5/2.5MG 3 ML NEBU. NEB SCH (12:00)
[2019-12-11] MEDS ORDERED: ENOXAPARIN 40 MG/0.4 ML SYRINGE. SQ SCH (12:00)
[2019-12-11] MEDS: IPRATRPIUM/ALBUTEROL 0.5/2.5MG 3 ML NEBU. NEB SCH ×4 (13:13→23:44)
[2019-12-11] MEDS: BUDESONIDE 0.5 MG/2 ML NEBU. NEB SCH ×2 (13:13→19:51)
[2019-12-11 15:00] VITALS: BP 119/61
[2019-12-11] MEDS ORDERED: MIRA25TA PO (18:37)
[2019-12-11 19:00] VITALS: BP 100/79
[2019-12-11] MEDS: GABAPENTIN 300 MG CAPSULE. PO SCH (21:05)
[2019-12-11 23:00] VITALS: BP 150/62
[2019-12-12] MEDS: MORPHINE SULFATE 2 MG/ML VIAL. IV PRN (02:28)
[2019-12-12 03:00] VITALS: BP 136/66
[2019-12-12] MEDS: IPRATRPIUM/ALBUTEROL 0.5/2.5MG 3 ML NEBU. NEB SCH ×5 (04:00→20:16)
[2019-12-12] MEDS ORDERED: ceFAZolin SODIUM IV Push 1 GM VIAL. IVP PRN (06:00)
[2019-12-12 06:51] LABS: BASO % 0 % (0-3); EOS % 0 % (0-3); HEMATOCRIT 36.3 % (36.0-47.0); HEMOGLOBIN 12.5 g/dL (12.0-15.5); LYMPH # 1.5 x10^3/uL (1.0-4.8); LYMPH % 21 % (24-48); MEAN CORPUSCULAR HEMOGLOBIN 31 pg (25-35); MEAN CORPUSCULAR HGB CONC 34 g/dL (31-37); MEAN CORPUSCULAR VOLUME 89 fL (79-100); MONO # 0.7 x10^3/uL (0.0-1.1); MONO % 10 % (0-9); NEUT % 69 % (31-73); PLATELET COUNT 178 x10^3/uL (140-400); RED BLOOD COUNT 4.06 x10^6/uL (3.50-5.40); RED CELL DISTRIBUTION WIDTH 14.1 % (11.5-14.5); WHITE BLOOD COUNT 7.2 x10^3/uL (4.0-11.0)
[2019-12-12 07:00] VITALS: BP 125/54
[2019-12-12] MEDS ORDERED: fentaNYL PF VIAL 100 MCG/2 ML VIAL IV PRN ×2 (07:00)
[2019-12-12] MEDS ORDERED: PROCHLORPERAZINE 10 MG/2 ML VIAL. IV PRN (07:00)
[2019-12-12] MEDS ORDERED: HYDROmorphone 2 MG/ML VIAL IV PRN (07:00)
[2019-12-12] MEDS ORDERED: MORPHINE SULFATE 2 MG/ML VIAL. IV PRN (07:00)
[2019-12-12] MEDS ORDERED: IV RINGERS,LACTATED 1000ML 1,000 ML IV SCH (07:00)
[2019-12-12 07:27] LABS: ALBUMIN 2.9 g/dL (3.4-5.0); ALBUMIN/GLOBULIN RATIO 0.9 (1.0-1.7); CALCIUM 7.8 mg/dL (8.5-10.1); CREATININE 0.8 mg/dL (0.6-1.0); GFR 68.8; POTASSIUM 4.2 mmol/L (3.5-5.1); TOTAL BILIRUBIN 0.5 mg/dL (0.2-1.0); TOTAL PROTEIN 6.2 g/dL (6.4-8.2)
[2019-12-12] MEDS ORDERED: LIDOCAINE 2% PF 5 ML VIAL. ONE (07:27)
[2019-12-12] MEDS ORDERED: DEXAMETHASONE SOD PHOS 4 MG/ML VIAL ONE (07:27)
[2019-12-12] MEDS ORDERED: ROCURONIUM 50 MG/5 ML VIAL. ONE (07:27)
[2019-12-12] MEDS ORDERED: PROPOFOL 10 MG/ML (20ML) VIAL. IV ONE (07:27)
[2019-12-12] MEDS ORDERED: ONDANSETRON PF 4 MG/2 ML VIAL. ONE (07:27)
[2019-12-12] MEDS: LACTOBACILLUS RHAMNOSUS GG 1 CAPSULE. PO SCH ×2 (07:35→20:19)
[2019-12-12] MEDS: ASPIRIN ENTERIC COATED 81 MG TABLET.DR. PO SCH (07:35)
--- NOTE | 2019-12-12 07:41 | PDOC4 ---
Operative Note Operative Note Date of procedure: 12/12/2019 Surgeon: Dallas Sanchez Record Systems Analyst: Preoperative diagnosis: Nondisplaced right periprosthetic femur fracture Postoperative diagnosis: Same Procedure performed: Open reduction internal fixation right femoral periprosthetic fracture Anesthesia: General Complications: none Findings: nondisplaced fracture Blood loss: 250mL Components inserted: [employer] Accord 200 mm plate Reason for procedure: Patient is a pleasant 79-year-old female who had a ground- level fall 2 nights prior. Please see my consult note for further details. We had a discussion of the risks, benefits, and alternatives to the above surgery and she wished to proceed. Description of procedure: Patient was greeted in the preoperative area by myself or the correct extremity was verified and marked. She was taken to the operative suite and antibiotics were started as she was brought back. Once in the operating room, she was transferred gently supine to the operating table and secured bed with all pressure points padded. She had successful induction of a general anesthetic. We then proceeded to prep and drape right lower extremity in her usual sterile fashion including Ioban at the periphery. We then conducted our standard preoperative timeout. I then brought in C arm to localize the fracture site and made a straight lateral incision over her lateral thigh. Electrocautery was used for subcutaneous dissection and hemostasis. Identified the fascia and incised this in line with the skin incision. I used a Sosa elevator and electrocautery to elevate the vastus lateralis off of the lateral intermuscular septum. Identified her fracture site,, nondisplaced fracture. I placed my Perez retractors to more fully visualize the operative field and femur, I then sized and placed my plate against bone, confirming position with C arm. I then secured to the bone distal to the tip of the stem with a nonlocking screw. I then placed 10 mm screws, locking, through the plate adjacent to the hip stem. I then placed 2 cerclage cables and tension these down proximal to the fracture site as well. After this, I placed 2 nonlocking screws distal to the fracture site and traded out my nonlocking screw guide placed initially for a locking screw. I then took my final images, was happy with fracture reduction or position. The operative field was then thoroughly irrigated. Hemostasis is been ensured with electrocautery. I placed a 1/8 inch Hemovac exiting just anterior to the distal portion of the incision. Fascia was closed with [id number] #1 Vicryl. Inverted interrupted 2 oh in a multilayered fashion was used for subcutaneous tissue and leeanne for skin. Prior to wound closure, all counts correct x2. No complications. I injected my periarticular mixture into the levar-incisional soft tissues. At the conclusion, the leg was cleansed and dried and a soft sterile bulky dressing was applied. She is awake from anesthesia. She tolerated surgery well. At the inclusion, she was taken to PACU in a stable and extubated condition. Postoperative plan will be to readmit her to the floor back under the care of the hospitalist, I will follow along. Toe-touch weightbearing. She received DVT and antibiotic prophylaxis. DALLAS SANCHEZ II, MD Dec 12, 2019 07:41
[2019-12-12] MEDS: BUDESONIDE 0.5 MG/2 ML NEBU. NEB SCH ×2 (08:00→20:17)
[2019-12-12] MEDS ORDERED: SEVOFLURANE 61 TO 120 MINUTES. IH ONE (08:34)
[2019-12-12] MEDS ORDERED: fentaNYL PF VIAL 100 MCG/2 ML VIAL ONE (08:44)
[2019-12-12] MEDS ORDERED: MORPHINE SULFATE 5 MG, KETOROLAC 30MG VIAL 30 MG, ROPIVacaine 0.5% PF 60 ML, EPINEPHrin... INT ART ONE ×5 (09:00)
[2019-12-12] MEDS ORDERED: SEVOFLURANE > 120 MINUTES. IH ONE (09:34)
[2019-12-12] MEDS ORDERED: ePHEDrine PF IN SALINE 50 MG/10 ML SYRINGE. IV ONE (09:38)
[2019-12-12] MEDS ORDERED: PHENYLEPHRINE in 0.9% NACL PF 1 MG/10 ML SYRINGE. IV ONE (09:38)
[2019-12-12] MEDS ORDERED: PROCHLORPERAZINE 10 MG/2 ML VIAL. ONE (10:53)
--- NOTE | 2019-12-12 11:32 | PDOC ---
PROGRESS NOTES History of Present Illness History of Present Illness VTE Prophylaxis Ordered VTE Prophylaxis Devices: No VTE Pharmacological Prophylaxi: Yes Assessment/Plan Assessment/Plan IMPRESSION: MECHANICAL FALL nondisplaced periprosthetic fracture about the distal right femoral stem. Changes of right total hip arthroplasty are again seen ON X-RAY hx osteoporosis COPD with continued tobacco abuse PLAN ADMIT Consult ortho dvt prophylaxis npo iv pain control DUONEBS QID d/w RN Operative Note Operative Note Operative Note Date of procedure: 12/12/2019 Surgeon: Dallas Rich Psychotherapist Social Worker: Preoperative diagnosis: Nondisplaced right periprosthetic femur fracture Postoperative diagnosis: Same Procedure performed: Open reduction internal fixation right femoral periprosthetic fracture Anesthesia: General Complications: none Findings: nondisplaced fracture Blood loss: 250mL Components inserted: [employer] 200 mm plate Reason for procedure: Patient is a pleasant 79-year-old female who had a ground- level fall 2 nights prior. Justicifation of Admission Dx: Justicifation of Admission Dx: Justifications for Admission: Justification of Admission Dx: Yes Comments: ACUTE FEMORAL FRACTURE, INTRACTABLE PAIN IN NEED OF SURGERY Vitals Vitals Vital Signs Date Time Temp Pulse Resp B/P (MAP) Pulse Ox O2 Delivery O2 Flow Rate FiO2 12/12/19 11:15 85 18 94 Nasal Cannula 3.0 12/12/19 10:57 98.2 98.2 Physical Exam General: Alert, Oriented X3, Cooperative, No acute distress, mild distress Heart: Regular rate, Normal S1, Normal S2 Lungs: Clear Abdomen: Normal bowel sounds, Soft Extremities: No cyanosis Labs LABS Laboratory Tests Test 12/12/19 06:30 White Blood Count 7.2 x10^3/uL (4.0-11.0) Red Blood Count 4.06 x10^6/uL (3.50-5.40) Hemoglobin 12.5 g/dL (12.0-15.5) Hematocrit 36.3 % (36.0-47.0) Mean Corpuscular Volume 89 fL (79-100) Mean Corpuscular Hemoglobin 31 pg (25-35) Mean Corpuscular Hemoglobin Concent 34 g/dL (31-37) Red Cell Distribution Width 14.1 % (11.5-14.5) Platelet Count 178 x10^3/uL (140-400) Neutrophils (%) (Auto) 69 % (31-73) Lymphocytes (%) (Auto) 21 % (24-48) Monocytes (%) (Auto) 10 % (0-9) Eosinophils (%) (Auto) 0 % (0-3) Basophils (%) (Auto) 0 % (0-3) Neutrophils # (Auto) 5.0 x10^3/uL (1.8-7.7) Lymphocytes # (Auto) 1.5 x10^3/uL (1.0-4.8) Monocytes # (Auto) 0.7 x10^3/uL (0.0-1.1) Eosinophils # (Auto) 0.0 x10^3/uL (0.0-0.7) Basophils # (Auto) 0.0 x10^3/uL (0.0-0.2) Sodium Level 138 mmol/L (136-145) Potassium Level 4.2 mmol/L (3.5-5.1) Chloride Level 106 mmol/L (98-107) Carbon Dioxide Level 24 mmol/L (21-32) Anion Gap 8 (6-14) Blood Urea Nitrogen 14 mg/dL (7-20) Creatinine 0.8 mg/dL (0.6-1.0) Estimated GFR (Cockcroft-Gault) 68.8 BUN/Creatinine Ratio 18 (6-20) Glucose Level 116 mg/dL (70-99) Calcium Level 7.8 mg/dL (8.5-10.1) Total Bilirubin 0.5 mg/dL (0.2-1.0) Aspartate Amino Transf (AST/SGOT) 16 U/L (15-37) Alanine Aminotransferase (ALT/SGPT) 15 U/L (14-59) Alkaline Phosphatase 65 U/L (46-116) Total Protein 6.2 g/dL (6.4-8.2) Albumin 2.9 g/dL (3.4-5.0) Albumin/Globulin Ratio 0.9 (1.0-1.7) Assessment and Plan Assessmemt and Plan Problems Medical Problems: (1) Femur fracture, right Status: Acute Comment Review of Relevant I have reviewed the following items javed (where applicable) has been applied. Labs Laboratory Tests Test 12/11/19 02:00 12/11/19 09:25 12/12/19 06:30 Coronavirus (COVID-19)(PCR) Negative (NEGATIVE) White Blood Count 8.9 x10^3/uL (4.0-11.0) 7.2 x10^3/uL (4.0-11.0) Red Blood Count 4.22 x10^6/uL (3.50-5.40) 4.06 x10^6/uL (3.50-5.40) Hemoglobin 13.1 g/dL (12.0-15.5) 12.5 g/dL (12.0-15.5) Hematocrit 37.8 % (36.0-47.0) 36.3 % (36.0-47.0) Mean Corpuscular Volume 90 fL (79-100) 89 fL (79-100) Mean Corpuscular Hemoglobin 31 pg (25-35) 31 pg (25-35) Mean Corpuscular Hemoglobin Concent 35 g/dL (31-37) 34 g/dL (31-37) Red Cell Distribution Width 13.9 % (11.5-14.5) 14.1 % (11.5-14.5) Platelet Count 172 x10^3/uL (140-400) 178 x10^3/uL (140-400) Neutrophils (%) (Auto) 75 % (31-73) 69 % (31-73) Lymphocytes (%) (Auto) 16 % (24-48) 21 % (24-48) Monocytes (%) (Auto) 8 % (0-9) 10 % (0-9) Eosinophils (%) (Auto) 0 % (0-3) 0 % (0-3) Basophils (%) (Auto) 0 % (0-3) 0 % (0-3) Neutrophils # (Auto) 6.6 x10^3/uL (1.8-7.7) 5.0 x10^3/uL (1.8-7.7) Lymphocytes # (Auto) 1.5 x10^3/uL (1.0-4.8) 1.5 x10^3/uL (1.0-4.8) Monocytes # (Auto) 0.7 x10^3/uL (0.0-1.1) 0.7 x10^3/uL (0.0-1.1) Eosinophils # (Auto) 0.0 x10^3/uL (0.0-0.7) 0.0 x10^3/uL (0.0-0.7) Basophils # (Auto) 0.0 x10^3/uL (0.0-0.2) 0.0 x10^3/uL (0.0-0.2) Sodium Level 141 mmol/L (136-145) 138 mmol/L (136-145) Potassium Level 4.2 mmol/L (3.5-5.1) 4.2 mmol/L (3.5-5.1) Chloride Level 107 mmol/L (98-107) 106 mmol/L (98-107) Carbon Dioxide Level 23 mmol/L (21-32) 24 mmol/L (21-32) Anion Gap 11 (6-14) 8 (6-14) Blood Urea Nitrogen 19 mg/dL (7-20) 14 mg/dL (7-20) Creatinine 0.8 mg/dL (0.6-1.0) 0.8 mg/dL (0.6-1.0) Estimated GFR (Cockcroft-Gault) 68.8 68.8 Glucose Level 140 mg/dL (70-99) 116 mg/dL (70-99) Calcium Level 7.8 mg/dL (8.5-10.1) 7.8 mg/dL (8.5-10.1) BUN/Creatinine Ratio 18 (6-20) Total Bilirubin 0.5 mg/dL (0.2-1.0) Aspartate Amino Transf (AST/SGOT) 16 U/L (15-37) Alanine Aminotransferase (ALT/SGPT) 15 U/L (14-59) Alkaline Phosphatase 65 U/L (46-116) Total Protein 6.2 g/dL (6.4-8.2) Albumin 2.9 g/dL (3.4-5.0) Albumin/Globulin Ratio 0.9 (1.0-1.7) Laboratory Tests Test 12/12/19 06:30 White Blood Count 7.2 x10^3/uL (4.0-11.0) Red Blood Count 4.06 x10^6/uL (3.50-5.40) Hemoglobin 12.5 g/dL (12.0-15.5) Hematocrit 36.3 % (36.0-47.0) Mean Corpuscular Volume 89 fL (79-100) Mean Corpuscular Hemoglobin 31 pg (25-35) Mean Corpuscular Hemoglobin Concent 34 g/dL (31-37) Red Cell Distribution Width 14.1 % (11.5-14.5) Platelet Count 178 x10^3/uL (140-400) Neutrophils (%) (Auto) 69 % (31-73) Lymphocytes (%) (Auto) 21 % (24-48) Monocytes (%) (Auto) 10 % (0-9) Eosinophils (%) (Auto) 0 % (0-3) Basophils (%) (Auto) 0 % (0-3) Neutrophils # (Auto) 5.0 x10^3/uL (1.8-7.7) Lymphocytes # (Auto) 1.5 x10^3/uL (1.0-4.8) Monocytes # (Auto) 0.7 x10^3/uL (0.0-1.1) Eosinophils # (Auto) 0.0 x10^3/uL (0.0-0.7) Basophils # (Auto) 0.0 x10^3/uL (0.0-0.2) Sodium Level 138 mmol/L (136-145) Potassium Level 4.2 mmol/L (3.5-5.1) Chloride Level 106 mmol/L (98-107) Carbon Dioxide Level 24 mmol/L (21-32) Anion Gap 8 (6-14) Blood Urea Nitrogen 14 mg/dL (7-20) Creatinine 0.8 mg/dL (0.6-1.0) Estimated GFR (Cockcroft-Gault) 68.8 BUN/Creatinine Ratio 18 (6-20) Glucose Level 116 mg/dL (70-99) Calcium Level 7.8 mg/dL (8.5-10.1) Total Bilirubin 0.5 mg/dL (0.2-1.0) Aspartate Amino Transf (AST/SGOT) 16 U/L (15-37) Alanine Aminotransferase (ALT/SGPT) 15 U/L (14-59) Alkaline Phosphatase 65 U/L (46-116) Total Protein 6.2 g/dL (6.4-8.2) Albumin 2.9 g/dL (3.4-5.0) Albumin/Globulin Ratio 0.9 (1.0-1.7) Medications Current Medications Morphine Sulfate (Morphine Sulfate) 2 mg PRN Q2HR PRN IV MODERATE PAIN 4-6 Last administered on 12/12/19at 02:28; Start 12/11/19 at 02:45 Morphine Sulfate (Morphine Sulfate) 4 mg PRN Q2HR PRN IV SEVERE PAIN 7-10; Start 12/11/19 at 02:45 Sodium Chloride 1,000 ml @ 75 mls/hr [id number] IV Last administered on 12/11/19at 03:04; Start 12/11/19 at 03:00; Stop 12/11/19 at 11:50; Status DC Fentanyl Citrate (Fentanyl 2ml Vial) 25 mcg PRN Q5MIN PRN IV MILD PAIN 1-3; Start 12/12/19 at 07:00; Stop 12/12/19 at 20:01 Fentanyl Citrate (Fentanyl 2ml Vial) 50 mcg PRN Q5MIN PRN IV MODERATE TO SEVERE PAIN; Start 12/12/19 at 07:00; Stop 12/12/19 at 20:00 Morphine Sulfate (Morphine Sulfate) 1 mg PRN Q10MIN PRN IV SEVERE PAIN 7-10; Start 12/12/19 at 07:00; Stop 12/12/19 at 20:00 Ringer's Solution 1,000 ml @ 30 mls/hr Q24H IV ; Start 12/12/19 at 07:00; Stop 12/12/19 at 18:59 Hydromorphone HCl (Dilaudid) 0.5 mg PRN Q10MIN PRN IV SEV PAIN, Second choice; Start 12/12/19 at 07:00; Stop 12/12/19 at 20:00 Prochlorperazine Edisylate (Compazine) 5 mg PACU PRN PRN IV NAUSEA, MRX1 Last administered on 12/12/19at 10:58; Start 12/12/19 at 07:00; Stop 12/12/19 at 20:00 Aspirin (Ecotrin) 81 mg DAILYWBKFT PO Last administered on 12/11/19at 11:54; Start 12/11/19 at 12:00 Budesonide (Pulmicort) 0.5 mg RTBID NEB Last administered on 12/11/19at 19:51; Start 12/11/19 at 12:00 Diltiazem HCl (Cardizem 24hr Cd) 120 mg DAILY PO Last administered on 12/11/19at 11:54; Start 12/11/19 at 12:00 Albuterol/ Ipratropium (Duoneb) 3 ml RTQID NEB ; Start 12/11/19 at 12:00; Status Cancel Lactobacillus Rhamnosus (Culturelle) 1 cap BID PO Last administered on 12/11/19at 21:05; Start 12/11/19 at 12:00 Gabapentin (Neurontin) 600 mg QHS PO Last administered on 12/11/19at 21:05; Start 12/11/19 at 21:00 Sodium Chloride (Normal Saline Flush) 3 ml QSHIFT PRN IV AFTER MEDS AND BLOOD DRAWS; Start 12/11/19 at 11:30 Sodium Chloride 1,000 ml @ 55 mls/hr [id number] IV Last administered on 12/11/19at 17:48; Start 12/11/19 at 11:25 Ondansetron HCl (Zofran) 4 mg PRN Q4HRS PRN IV NAUSEA/VOMITING; Start 12/11/19 at 11:30 Zolpidem Tartrate (Ambien) 5 mg PRN QHS PRN PO INSOMNIA; Start 12/11/19 at 11:30 Acetaminophen (Tylenol) 650 mg PRN Q4HRS PRN PO TEMP OVER 100.4F OR MILD PAIN; Start 12/11/19 at 11:30 Al Hydroxide/Mg Hydroxide (Mylanta Plus Xs) 30 ml PRN DAILY PRN PO HEARTBURN / GAS; Start 12/11/19 at 11:30 Clonidine HCl (Catapres) 0.1 mg PRN Q6HRS PRN PO SBP>160 OR DBP>90; Start 12/11/19 at 11:30 Sodium Monofluorophosphate (Fleet Adult) 133 ml PRN DAILY PRN [place] CONSTIPATION; Start 12/11/19 at 11:30 Docusate Sodium (Colace) 100 mg PRN BID PRN PO HARD STOOLS; Start 12/11/19 at 11:30 Albuterol/ Ipratropium (Duoneb) 3 ml Q4HRS NEB Last administered on 12/12/19at 07:05; Start 12/11/19 at 12:00 Guaifenesin (Robitussin) 200 mg PRN Q4HRS PRN PO COUGH; Start 12/11/19 at 11:30 Enoxaparin Sodium (Lovenox 40mg Syringe) 40 mg Q24H SQ Last administered on 12/11/19at 11:55; Start 12/11/19 at 12:00; Stop 12/12/19 at 11:00; Status DC Cefazolin Sodium (Ancef) 1 gm PREOP PRN PRN IVP PREOP; Start 12/12/19 at 06:00; Stop 12/12/19 at 12:00 Propofol (Diprivan) 200 mg STK-MED ONCE IV ; Start 12/12/19 at 07:27; Stop 12/12/19 at 07:27; Status DC Dexamethasone Sodium Phosphate (Decadron) 4 mg STK-MED ONCE .ROUTE ; Start 12/12/19 at 07:27; Stop 12/12/19 at 07:27; Status DC Lidocaine HCl (Lidocaine Pf 2% Vial) 5 ml STK-MED ONCE .ROUTE ; Start 12/12/19 at 07:27; Stop 12/12/19 at 07:27; Status DC Ondansetron HCl (Zofran) 4 mg STK-MED ONCE .ROUTE ; Start 12/12/19 at 07:27; Stop 12/12/19 at 07:27; Status DC Rocuronium [place] (Zemuron) 50 mg STK-MED ONCE .ROUTE ; Start 12/12/19 at 07:27; Stop 12/12/19 at 07:27; Status DC Cefazolin Sodium (Ancef) 1 gm Q6H IVP ; Start 12/12/19 at 14:00; Stop 12/13/19 at 02:01 Enoxaparin Sodium (Lovenox 40mg Syringe) 40 mg Q24H SQ ; Start 12/13/19 at 07:00 Acetaminophen/ Hydrocodone Bitart (Lortab 5/325) 1 tab PRN Q3HRS PRN PO MODERATE PAIN; Start 12/12/19 at 07:45 Morphine Sulfate 5 mg/Ketorolac Tromethamine 30 mg/Ropivacaine 60 ml/Epinephrine HCl 0.5 mg/Sodium Chloride 100 ml @ 100 mls/hr 1X ONCE INT ART Last administered on 12/12/19at 09:05; Start 12/12/19 at 09:00; Stop 12/12/19 at 09:59; Status DC Sevoflurane (Ultane) 60 ml STK-MED ONCE IH ; Start 12/12/19 at 08:34; Stop 12/12/19 at 08:34; Status DC Fentanyl Citrate (Fentanyl 2ml Vial) 100 mcg STK-MED ONCE .ROUTE ; Start 12/12/19 at 08:44; Stop 12/12/19 at 08:44; Status DC Sevoflurane (Ultane) 90 ml STK-MED ONCE IH ; Start 12/12/19 at 09:34; Stop 12/12/19 at 09:34; Status DC Ephedrine Sulfate (ePHEDrine PF IN SALINE SYRINGE) 50 mg STK-MED ONCE IV ; Start 12/12/19 at 09:38; Stop 12/12/19 at 09:38; Status DC Phenylephrine HCl (PHENYLEPHRINE in 0.9% NACL PF) 1 mg STK-MED ONCE IV ; Start 12/12/19 at 09:38; Stop 12/12/19 at 09:38; Status DC Prochlorperazine Edisylate (Compazine) 10 mg STK-MED ONCE .ROUTE ; Start 12/12/19 at 10:53; Stop 12/12/19 at 10:54; Status DC Active Scripts Active Culturelle (Lactobacillus Rhamnosus Gg) 1 Each Cap.sprink 1 Cap PO BID 10 Days Budesonide 0.5 Mg/2 Ml Ampul.neb 0.5 Mg NEB RTBID Aspirin Ec (Aspirin) 81 Mg Tablet.dr 81 Mg PO DAILYWBKFT Duoneb 0.5-3(2.5) Mg/3 Ml (Albuterol/Ipratropium) 3 Ml Ampul.neb 3 Ml NEB RTQID Diltiazem 24HR Cd (Diltiazem Hcl) 120 Mg Cap.er.24h 120 Mg PO DAILY MDD 1 Flagyl (Metronidazole) 500 Mg Tablet 500 Mg PO Q8HRS 10 Days Cipro (Ciprofloxacin Hcl) 250 Mg Tablet 500 Mg PO BID 10 Days Lorazepam 0.5 Mg Tablet 0.5 Mg PO HS Reported Myrbetriq (Mirabegron) 25 Mg Tab.er.24h 25 Mg PO DAILY Alendronate Sodium 70 Mg Tablet 70 Mg PO QM Gabapentin 600 Mg Tablet 600 Mg PO HS Vitals/I & O Vital Sign - Last 24 Hours 12/11/19 12/11/19 12/11/19 12/11/19 11:54 13:14 15:00 16:37 Temp 98.4 98.4 Pulse 93 76 Resp 18 B/P (MAP) 131/68 119/61 (80) Pulse Ox 95 93 94 O2 Delivery Room Air Room Air 12/11/19 12/11/19 12/11/19 12/11/19 18:14 18:45 19:00 19:35 Temp 98.5 98.5 Pulse 80 Resp 20 B/P (MAP) 100/79 (86) Pulse Ox 94 94 97 O2 Delivery Room Air Room Air Room Air Room Air 12/11/19 12/11/19 12/11/19 12/11/19 19:51 21:01 22:22 23:00 Temp 99.1 99.1 Pulse 81 Resp 20 B/P (MAP) 150/62 (91) Pulse Ox 94 93 O2 Delivery Room Air Room Air Room Air Room Air 12/11/19 12/12/19 12/12/19 12/12/19 23:41 01:35 02:28 03:00 Temp 99.1 99.1 Pulse 93 Resp 20 B/P (MAP) 136/66 (89) Pulse Ox 93 O2 Delivery Room Air Room Air Room Air Room Air 12/12/19 12/12/19 12/12/19 12/12/19 05:02 07:00 07:05 07:43 Temp 97.9 97.9 Pulse 87 Resp 20 B/P (MAP) 125/54 (77) Pulse Ox 95 95 O2 Delivery Room Air Room Air Room Air Room Air 12/12/19 12/12/19 12/12/19 12/12/19 10:16 10:30 10:41 10:50 Temp 97.6 97.6 97.6 97.6 97.6 97.6 97.6 97.6 Pulse 105 97 97 107 Resp 20 18 18 20 B/P (MAP) 116/58 119/54 119/54 125/59 Pulse Ox 99 99 94 97 O2 Delivery Simple Mask Simple Mask Nasal Cannula Nasal Cannula Simple Mask O2 Flow Rate 10 10 3 3 12/12/19 12/12/19 10:57 11:15 Temp 98.2 98.2 Pulse 105 85 Resp 20 18 B/P (MAP) 116/66 Pulse Ox 94 94 O2 Delivery Nasal Cannula Nasal Cannula O2 Flow Rate 3 3.0 Intake and Output 12/11/19 12/11/19 12/12/19 15:00 23:00 07:00 Intake Total 360 ml 1090 ml 50 ml Balance 360 ml 1090 ml 50 ml ANA MARIA SIDDIQUI MD Dec 12, 2019 11:32
[2019-12-12] MEDS: ceFAZolin SODIUM IV Push 1 GM VIAL. IVP SCH ×2 (12:33→20:19)
[2019-12-12] MEDS: IV NORMAL SALINE 1000ML BAG 1,000 ML IV SCH (14:46)
[2019-12-12 15:00] VITALS: BP 101/45
[2019-12-12] MEDS: HYDROcodone/APAP 5/325MG 1 TAB TABLET PO PRN ×2 (15:45→20:19)
[2019-12-12 19:00] VITALS: BP 111/70
[2019-12-12] MEDS: GABAPENTIN 300 MG CAPSULE. PO SCH (20:18)
[2019-12-12 23:00] VITALS: BP 100/60
[2019-12-13] MEDS: ceFAZolin SODIUM IV Push 1 GM VIAL. IVP SCH (02:00)
[2019-12-13] MEDS: HYDROcodone/APAP 5/325MG 1 TAB TABLET PO PRN ×4 (02:59→19:43)
[2019-12-13 03:00] VITALS: BP 121/54
[2019-12-13] MEDS: ENOXAPARIN 40 MG/0.4 ML SYRINGE. SQ SCH (06:36)
--- NOTE | 2019-12-13 07:02 | PDOC ---
JAILAURA Bruce GONZALEZ 12/13/19 0702: ORTHO PROGRESS NOTES Subjective patient states pain is tolerable. Post-op Day: 1 Procedure ORIF Right periprosthetic femoral fracture. Vitals Vital Signs Date Time Temp Pulse Resp B/P (MAP) Pulse Ox O2 Delivery O2 Flow Rate FiO2 12/13/19 06:36 20 95 Room Air 12/13/19 03:00 97.9 80 121/54 (76) 97.9 12/13/19 02:59 3.0 Labs Laboratory Tests Test 12/11/19 09:25 12/12/19 06:30 White Blood Count 8.9 x10^3/uL (4.0-11.0) 7.2 x10^3/uL (4.0-11.0) Red Blood Count 4.22 x10^6/uL (3.50-5.40) 4.06 x10^6/uL (3.50-5.40) Hemoglobin 13.1 g/dL (12.0-15.5) 12.5 g/dL (12.0-15.5) Hematocrit 37.8 % (36.0-47.0) 36.3 % (36.0-47.0) Mean Corpuscular Volume 90 fL (79-100) 89 fL (79-100) Mean Corpuscular Hemoglobin 31 pg (25-35) 31 pg (25-35) Mean Corpuscular Hemoglobin Concent 35 g/dL (31-37) 34 g/dL (31-37) Red Cell Distribution Width 13.9 % (11.5-14.5) 14.1 % (11.5-14.5) Platelet Count 172 x10^3/uL (140-400) 178 x10^3/uL (140-400) Neutrophils (%) (Auto) 75 % (31-73) 69 % (31-73) Lymphocytes (%) (Auto) 16 % (24-48) 21 % (24-48) Monocytes (%) (Auto) 8 % (0-9) 10 % (0-9) Eosinophils (%) (Auto) 0 % (0-3) 0 % (0-3) Basophils (%) (Auto) 0 % (0-3) 0 % (0-3) Neutrophils # (Auto) 6.6 x10^3/uL (1.8-7.7) 5.0 x10^3/uL (1.8-7.7) Lymphocytes # (Auto) 1.5 x10^3/uL (1.0-4.8) 1.5 x10^3/uL (1.0-4.8) Monocytes # (Auto) 0.7 x10^3/uL (0.0-1.1) 0.7 x10^3/uL (0.0-1.1) Eosinophils # (Auto) 0.0 x10^3/uL (0.0-0.7) 0.0 x10^3/uL (0.0-0.7) Basophils # (Auto) 0.0 x10^3/uL (0.0-0.2) 0.0 x10^3/uL (0.0-0.2) Sodium Level 141 mmol/L (136-145) 138 mmol/L (136-145) Potassium Level 4.2 mmol/L (3.5-5.1) 4.2 mmol/L (3.5-5.1) Chloride Level 107 mmol/L (98-107) 106 mmol/L (98-107) Carbon Dioxide Level 23 mmol/L (21-32) 24 mmol/L (21-32) Anion Gap 11 (6-14) 8 (6-14) Blood Urea Nitrogen 19 mg/dL (7-20) 14 mg/dL (7-20) Creatinine 0.8 mg/dL (0.6-1.0) 0.8 mg/dL (0.6-1.0) Estimated GFR (Cockcroft-Gault) 68.8 68.8 Glucose Level 140 mg/dL (70-99) 116 mg/dL (70-99) Calcium Level 7.8 mg/dL (8.5-10.1) 7.8 mg/dL (8.5-10.1) BUN/Creatinine Ratio 18 (6-20) Total Bilirubin 0.5 mg/dL (0.2-1.0) Aspartate Amino Transf (AST/SGOT) 16 U/L (15-37) Alanine Aminotransferase (ALT/SGPT) 15 U/L (14-59) Alkaline Phosphatase 65 U/L (46-116) Total Protein 6.2 g/dL (6.4-8.2) Albumin 2.9 g/dL (3.4-5.0) Albumin/Globulin Ratio 0.9 (1.0-1.7) Notes Patient awake and alert. Patient to remain on Lovenox Assessment and Plan POD# 1 Right femoral periprosthetic femur fracture motor and sensation intact distally calf soft and non tender pain tolerable continue lovenox and TTWB JOSE SANCHEZ II, MD 12/17/19 0834: LAURA VERGARA APRN Dec 13, 2019 07:02 JOSE SANCHEZ II, MD Dec 17, 2019 08:34
[2019-12-13 07:08] VITALS: BP 123/57
[2019-12-13] MEDS: IPRATRPIUM/ALBUTEROL 0.5/2.5MG 3 ML NEBU. NEB SCH ×4 (07:21→20:25)
[2019-12-13] MEDS: BUDESONIDE 0.5 MG/2 ML NEBU. NEB SCH ×2 (07:21→20:25)
[2019-12-13] MEDS: ASPIRIN ENTERIC COATED 81 MG TABLET.DR. PO SCH (08:22)
[2019-12-13] MEDS: LACTOBACILLUS RHAMNOSUS GG 1 CAPSULE. PO SCH ×2 (08:23→21:53)
[2019-12-13] MEDS: IV NORMAL SALINE 1000ML BAG 1,000 ML IV SCH (08:25)
[2019-12-13 10:31] VITALS: BP 116/48
[2019-12-13 15:00] VITALS: BP 131/57
[2019-12-13 19:00] VITALS: BP 130/50
[2019-12-13] MEDS: GABAPENTIN 300 MG CAPSULE. PO SCH (21:53)
[2019-12-13 23:00] VITALS: BP 115/67
[2019-12-14 03:00] VITALS: BP 140/67
[2019-12-14] MEDS: ENOXAPARIN 40 MG/0.4 ML SYRINGE. SQ SCH (06:32)
[2019-12-14 06:55] VITALS: BP 140/62
[2019-12-14] MEDS: BUDESONIDE 0.5 MG/2 ML NEBU. NEB SCH ×2 (07:21→19:47)
[2019-12-14] MEDS: IPRATRPIUM/ALBUTEROL 0.5/2.5MG 3 ML NEBU. NEB SCH ×4 (07:21→19:47)
--- NOTE | 2019-12-14 08:18 | PDOC ---
PROGRESS NOTES Chief Complaint Chief Complaint late entry, pt seen 12/12 History of Present Illness History of Present Illness MECHANICAL FALL nondisplaced periprosthetic fracture about the distal right femoral stem. Changes of right total hip arthroplasty are again seen ON X-RAY hx osteoporosis COPD with continued tobacco abuse Preoperative diagnosis: Nondisplaced right periprosthetic femur fracture Procedure performed: Open reduction internal fixation right femoral periprosthetic fracture Components inserted: [employer] 200 mm plate Reason for procedure: Patient is a pleasant 79-year-old female who had a ground- level fall 2 nights prior. ACUTE FEMORAL FRACTURE, INTRACTABLE PAIN IN NEED OF SURGERY Vitals Vitals Vital Signs Date Time Temp Pulse Resp B/P (MAP) Pulse Ox O2 Delivery O2 Flow Rate FiO2 12/14/19 07:21 95 Room Air 12/14/19 06:55 98.2 99 17 140/62 (88) 98.2 Physical Exam General: Alert, Oriented X3, Cooperative, No acute distress, mild distress Heart: Regular rate, Normal S1, Normal S2 Lungs: Clear Abdomen: Normal bowel sounds, Soft Extremities: No cyanosis Assessment and Plan Assessmemt and Plan Problems Medical Problems: (1) Femur fracture, right Status: Acute Comment Review of Relevant I have reviewed the following items javed (where applicable) has been applied. Medications Current Medications Morphine Sulfate (Morphine Sulfate) 2 mg PRN Q2HR PRN IV MODERATE PAIN 4-6 Last administered on 12/12/19at 02:28; Start 12/11/19 at 02:45 Morphine Sulfate (Morphine Sulfate) 4 mg PRN Q2HR PRN IV SEVERE PAIN 7-10 Last administered on 12/13/19at 13:23; Start 12/11/19 at 02:45 Sodium Chloride 1,000 ml @ 75 mls/hr [id number] IV Last administered on 12/11/19at 03:04; Start 12/11/19 at 03:00; Stop 12/11/19 at 11:50; Status DC Fentanyl Citrate (Fentanyl 2ml Vial) 25 mcg PRN Q5MIN PRN IV MILD PAIN 1-3; Start 12/12/19 at 07:00; Stop 12/12/19 at 15:04; Status DC Fentanyl Citrate (Fentanyl 2ml Vial) 50 mcg PRN Q5MIN PRN IV MODERATE TO SEVERE PAIN; Start 12/12/19 at 07:00; Stop 12/12/19 at 15:04; Status DC Morphine Sulfate (Morphine Sulfate) 1 mg PRN Q10MIN PRN IV SEVERE PAIN 7-10; Start 12/12/19 at 07:00; Stop 12/12/19 at 15:04; Status DC Ringer's Solution 1,000 ml @ 30 mls/hr Q24H IV ; Start 12/12/19 at 07:00; Stop 12/12/19 at 15:05; Status DC Hydromorphone HCl (Dilaudid) 0.5 mg PRN Q10MIN PRN IV SEV PAIN, Second choice; Start 12/12/19 at 07:00; Stop 12/12/19 at 15:05; Status DC Prochlorperazine Edisylate (Compazine) 5 mg PACU PRN PRN IV NAUSEA, MRX1 Last administered on 12/12/19at 10:58; Start 12/12/19 at 07:00; Stop 12/12/19 at 15:05; Status DC Aspirin (Ecotrin) 81 mg DAILYWBKFT PO Last administered on 12/13/19at 08:22; Start 12/11/19 at 12:00 Budesonide (Pulmicort) 0.5 mg RTBID NEB Last administered on 12/14/19at 07:21; Start 12/11/19 at 12:00 Diltiazem HCl (Cardizem 24hr Cd) 120 mg DAILY PO Last administered on 12/13/19at 08:23; Start 12/11/19 at 12:00 Albuterol/ Ipratropium (Duoneb) 3 ml RTQID NEB ; Start 12/11/19 at 12:00; Status Cancel Lactobacillus Rhamnosus (Culturelle) 1 cap BID PO Last administered on 12/13/19at 21:53; Start 12/11/19 at 12:00 Gabapentin (Neurontin) 600 mg QHS PO Last administered on 12/13/19at 21:53; Start 12/11/19 at 21:00 Sodium Chloride (Normal Saline Flush) 3 ml QSHIFT PRN IV AFTER MEDS AND BLOOD DRAWS; Start 12/11/19 at 11:30 Sodium Chloride 1,000 ml @ 55 mls/hr [id number] IV Last administered on 12/13/19at 08:25; Start 12/11/19 at 11:25 Ondansetron HCl (Zofran) 4 mg PRN Q4HRS PRN IV NAUSEA/VOMITING; Start 12/11/19 at 11:30 Zolpidem Tartrate (Ambien) 5 mg PRN QHS PRN PO INSOMNIA; Start 12/11/19 at 11:30 Acetaminophen (Tylenol) 650 mg PRN Q4HRS PRN PO TEMP OVER 100.4F OR MILD PAIN; Start 12/11/19 at 11:30 Al Hydroxide/Mg Hydroxide (Mylanta Plus Xs) 30 ml PRN DAILY PRN PO HEARTBURN / GAS; Start 12/11/19 at 11:30 Clonidine HCl (Catapres) 0.1 mg PRN Q6HRS PRN PO SBP>160 OR DBP>90; Start 12/11/19 at 11:30 Sodium Monofluorophosphate (Fleet Adult) 133 ml PRN DAILY PRN [place] CONSTIPATION; Start 12/11/19 at 11:30 Docusate Sodium (Colace) 100 mg PRN BID PRN PO HARD STOOLS; Start 12/11/19 at 11:30 Albuterol/ Ipratropium (Duoneb) 3 ml Q4HRS NEB Last administered on 12/12/19at 20:16; Start 12/11/19 at 12:00; Stop 12/12/19 at 22:04; Status DC Guaifenesin (Robitussin) 200 mg PRN Q4HRS PRN PO COUGH; Start 12/11/19 at 11:30 Enoxaparin Sodium (Lovenox 40mg Syringe) 40 mg Q24H SQ Last administered on 12/11/19at 11:55; Start 12/11/19 at 12:00; Stop 12/12/19 at 11:00; Status DC Cefazolin Sodium (Ancef) 1 gm PREOP PRN PRN IVP PREOP; Start 12/12/19 at 06:00; Stop 12/12/19 at 12:00; Status DC Propofol (Diprivan) 200 mg STK-MED ONCE IV ; Start 12/12/19 at 07:27; Stop 12/12/19 at 07:27; Status DC Dexamethasone Sodium Phosphate (Decadron) 4 mg STK-MED ONCE .ROUTE ; Start 12/11 at 07:27; Stop 12/12/19 at 07:27; Status DC Lidocaine HCl (Lidocaine Pf 2% Vial) 5 ml STK-MED ONCE .ROUTE ; Start 12/12/19 at 07:27; Stop 12/12/19 at 07:27; Status DC Ondansetron HCl (Zofran) 4 mg STK-MED ONCE .ROUTE ; Start 12/12/19 at 07:27; Stop 12/12/19 at 07:27; Status DC Rocuronium [place] (Zemuron) 50 mg STK-MED ONCE .ROUTE ; Start 12/12/19 at 07:27; Stop 12/12/19 at 07:27; Status DC Cefazolin Sodium (Ancef) 1 gm Q6H IVP Last administered on 12/13/19at 02:00; Start 12/12/19 at 14:00; Stop 12/13/19 at 02:01; Status DC Enoxaparin Sodium (Lovenox 40mg Syringe) 40 mg Q24H SQ Last administered on 12/14/19at 06:32; Start 12/13/19 at 07:00 Acetaminophen/ Hydrocodone Bitart (Lortab 5/325) 1 tab PRN Q3HRS PRN PO MODERATE PAIN Last administered on 12/13/19at 19:43; Start 12/12/19 at 07:45 Morphine Sulfate 5 mg/Ketorolac Tromethamine 30 mg/Ropivacaine 60 ml/Epinephrine HCl 0.5 mg/Sodium Chloride 100 ml @ 100 mls/hr 1X ONCE INT ART Last administered on 12/12/19at 09:05; Start 12/12/19 at 09:00; Stop 12/12/19 at 09:59; Status DC Sevoflurane (Ultane) 60 ml STK-MED ONCE IH ; Start 12/12/19 at 08:34; Stop 12/12/19 at 08:34; Status DC Fentanyl Citrate (Fentanyl 2ml Vial) 100 mcg STK-MED ONCE .ROUTE ; Start 12/12/19 at 08:44; Stop 12/12/19 at 08:44; Status DC Sevoflurane (Ultane) 90 ml STK-MED ONCE IH ; Start 12/12/19 at 09:34; Stop 12/12/19 at 09:34; Status DC Ephedrine Sulfate (ePHEDrine PF IN SALINE SYRINGE) 50 mg STK-MED ONCE IV ; Start 12/12/19 at 09:38; Stop 12/12/19 at 09:38; Status DC Phenylephrine HCl (PHENYLEPHRINE in 0.9% NACL PF) 1 mg STK-MED ONCE IV ; Start 12/12/19 at 09:38; Stop 12/12/19 at 09:38; Status DC Prochlorperazine Edisylate (Compazine) 10 mg STK-MED ONCE .ROUTE ; Start 12/12/19 at 10:53; Stop 12/12/19 at 10:54; Status DC Albuterol/ Ipratropium (Duoneb) 3 ml RTQID NEB Last administered on 12/14/19at 07:21; Start 12/13/19 at 08:00 Active Scripts Active Culturelle (Lactobacillus Rhamnosus Gg) 1 Each Cap.sprink 1 Cap PO BID 10 Days Budesonide 0.5 Mg/2 Ml Ampul.neb 0.5 Mg NEB RTBID Aspirin Ec (Aspirin) 81 Mg Tablet.dr 81 Mg PO DAILYWBKFT Duoneb 0.5-3(2.5) Mg/3 Ml (Albuterol/Ipratropium) 3 Ml Ampul.neb 3 Ml NEB RTQID Diltiazem 24HR Cd (Diltiazem Hcl) 120 Mg Cap.er.24h 120 Mg PO DAILY MDD 1 Flagyl (Metronidazole) 500 Mg Tablet 500 Mg PO Q8HRS 10 Days Cipro (Ciprofloxacin Hcl) 250 Mg Tablet 500 Mg PO BID 10 Days Lorazepam 0.5 Mg Tablet 0.5 Mg PO HS Reported Myrbetriq (Mirabegron) 25 Mg Tab.er.24h 25 Mg PO DAILY Alendronate Sodium 70 Mg Tablet 70 Mg PO QM Gabapentin 600 Mg Tablet 600 Mg PO HS Vitals/I & O Vital Sign - Last 24 Hours 12/13/19 12/13/19 12/13/19 12/13/19 08:23 10:31 11:29 11:33 Temp 97.6 97.6 Pulse 80 105 Resp 17 B/P (MAP) 123/57 116/48 (70) Pulse Ox 95 O2 Delivery Room Air Room Air Room Air 12/13/19 12/13/19 12/13/19 12/13/19 13:19 13:23 14:08 15:00 Temp 98.8 98.8 Pulse 88 Resp 18 B/P (MAP) 131/57 (81) Pulse Ox 90 O2 Delivery Room Air Room Air Room Air Room Air 12/13/19 12/13/19 12/13/19 12/13/19 16:15 19:00 19:43 20:00 Temp 98.7 98.7 Pulse 99 Resp 18 B/P (MAP) 130/50 (76) Pulse Ox 91 O2 Delivery Room Air Room Air Room Air Room Air 12/13/19 12/13/19 12/13/19 12/14/19 20:26 20:44 23:00 03:00 Temp 98.3 98.4 98.3 98.4 Pulse 72 108 Resp 18 18 B/P (MAP) 115/67 (83) 140/67 (91) Pulse Ox 94 91 94 O2 Delivery Room Air Room Air Room Air Room Air 12/14/19 12/14/19 06:55 07:21 Temp 98.2 98.2 Pulse 99 Resp 17 B/P (MAP) 140/62 (88) Pulse Ox 99 95 O2 Delivery Room Air Room Air Intake and Output 12/13/19 12/13/19 12/14/19 15:00 23:00 07:00 Intake Total 200 ml 0 ml 300 ml Output Total 800 ml Balance 200 ml 0 ml -500 ml MEGAN MAYA MD Dec 14, 2019 08:18
--- NOTE | 2019-12-14 08:38 | PDOC ---
PROGRESS NOTES Chief Complaint Chief Complaint try to DC soon to skilled feeling better History of Present Illness History of Present Illness MECHANICAL FALL nondisplaced periprosthetic fracture about the distal right femoral stem. Changes of right total hip arthroplasty are again seen ON X-RAY hx osteoporosis COPD with continued tobacco abuse Preoperative diagnosis: Nondisplaced right periprosthetic femur fracture Procedure performed: Open reduction internal fixation right femoral periprosthetic fracture Vitals Vitals Vital Signs Date Time Temp Pulse Resp B/P (MAP) Pulse Ox O2 Delivery O2 Flow Rate FiO2 12/14/19 07:21 95 Room Air 12/14/19 06:55 98.2 99 17 140/62 (88) 98.2 Physical Exam General: Alert, Oriented X3, Cooperative, No acute distress, mild distress Heart: Regular rate, Normal S1, Normal S2 Lungs: Clear Abdomen: Normal bowel sounds, Soft Extremities: No cyanosis Assessment and Plan Assessmemt and Plan Problems Medical Problems: (1) Femur fracture, right Status: Acute Comment Review of Relevant I have reviewed the following items javed (where applicable) has been applied. Medications Current Medications Morphine Sulfate (Morphine Sulfate) 2 mg PRN Q2HR PRN IV MODERATE PAIN 4-6 Last administered on 12/12/19at 02:28; Start 12/11/19 at 02:45 Morphine Sulfate (Morphine Sulfate) 4 mg PRN Q2HR PRN IV SEVERE PAIN 7-10 Last administered on 12/13/19at 13:23; Start 12/11/19 at 02:45 Sodium Chloride 1,000 ml @ 75 mls/hr [id number] IV Last administered on 12/11/19at 03:04; Start 12/11/19 at 03:00; Stop 12/11/19 at 11:50; Status DC Fentanyl Citrate (Fentanyl 2ml Vial) 25 mcg PRN Q5MIN PRN IV MILD PAIN 1-3; Start 12/12/19 at 07:00; Stop 12/12/19 at 15:04; Status DC Fentanyl Citrate (Fentanyl 2ml Vial) 50 mcg PRN Q5MIN PRN IV MODERATE TO SEVERE PAIN; Start 12/12/19 at 07:00; Stop 12/12/19 at 15:04; Status DC Morphine Sulfate (Morphine Sulfate) 1 mg PRN Q10MIN PRN IV SEVERE PAIN 7-10; Start 12/12/19 at 07:00; Stop 12/12/19 at 15:04; Status DC Ringer's Solution 1,000 ml @ 30 mls/hr Q24H IV ; Start 12/12/19 at 07:00; Stop 12/12/19 at 15:05; Status DC Hydromorphone HCl (Dilaudid) 0.5 mg PRN Q10MIN PRN IV SEV PAIN, Second choice; Start 12/12/19 at 07:00; Stop 12/12/19 at 15:05; Status DC Prochlorperazine Edisylate (Compazine) 5 mg PACU PRN PRN IV NAUSEA, MRX1 Last administered on 12/12/19at 10:58; Start 12/12/19 at 07:00; Stop 12/12/19 at 15:05; Status DC Aspirin (Ecotrin) 81 mg DAILYWBKFT PO Last administered on 12/13/19at 08:22; Start 12/11/19 at 12:00 Budesonide (Pulmicort) 0.5 mg RTBID NEB Last administered on 12/14/19at 07:21; Start 12/11/19 at 12:00 Diltiazem HCl (Cardizem 24hr Cd) 120 mg DAILY PO Last administered on 12/13/19at 08:23; Start 12/11/19 at 12:00 Albuterol/ Ipratropium (Duoneb) 3 ml RTQID NEB ; Start 12/11/19 at 12:00; Status Cancel Lactobacillus Rhamnosus (Culturelle) 1 cap BID PO Last administered on 12/13/19at 21:53; Start 12/11/19 at 12:00 Gabapentin (Neurontin) 600 mg QHS PO Last administered on 12/13/19at 21:53; Start 12/11/19 at 21:00 Sodium Chloride (Normal Saline Flush) 3 ml QSHIFT PRN IV AFTER MEDS AND BLOOD DRAWS; Start 12/11/19 at 11:30 Sodium Chloride 1,000 ml @ 55 mls/hr [id number] IV Last administered on 12/13/19at 08:25; Start 12/11/19 at 11:25 Ondansetron HCl (Zofran) 4 mg PRN Q4HRS PRN IV NAUSEA/VOMITING; Start 12/11/19 at 11:30 Zolpidem Tartrate (Ambien) 5 mg PRN QHS PRN PO INSOMNIA; Start 12/11/19 at 11:30 Acetaminophen (Tylenol) 650 mg PRN Q4HRS PRN PO TEMP OVER 100.4F OR MILD PAIN; Start 12/11/19 at 11:30 Al Hydroxide/Mg Hydroxide (Mylanta Plus Xs) 30 ml PRN DAILY PRN PO HEARTBURN / GAS; Start 12/11/19 at 11:30 Clonidine HCl (Catapres) 0.1 mg PRN Q6HRS PRN PO SBP>160 OR DBP>90; Start 12/11/19 at 11:30 Sodium Monofluorophosphate (Fleet Adult) 133 ml PRN DAILY PRN [place] CONSTIPATION; Start 12/11/19 at 11:30 Docusate Sodium (Colace) 100 mg PRN BID PRN PO HARD STOOLS; Start 12/11/19 at 11:30 Albuterol/ Ipratropium (Duoneb) 3 ml Q4HRS NEB Last administered on 12/12/19at 20:16; Start 12/11/19 at 12:00; Stop 12/12/19 at 22:04; Status DC Guaifenesin (Robitussin) 200 mg PRN Q4HRS PRN PO COUGH; Start 12/11/19 at 11:30 Enoxaparin Sodium (Lovenox 40mg Syringe) 40 mg Q24H SQ Last administered on 12/11/19at 11:55; Start 12/11/19 at 12:00; Stop 12/12/19 at 11:00; Status DC Cefazolin Sodium (Ancef) 1 gm PREOP PRN PRN IVP PREOP; Start 12/12/19 at 06:00; Stop 12/12/19 at 12:00; Status DC Propofol (Diprivan) 200 mg STK-MED ONCE IV ; Start 12/12/19 at 07:27; Stop 12/12/19 at 07:27; Status DC Dexamethasone Sodium Phosphate (Decadron) 4 mg STK-MED ONCE .ROUTE ; Start 12/12/19 at 07:27; Stop 12/12/19 at 07:27; Status DC Lidocaine HCl (Lidocaine Pf 2% Vial) 5 ml STK-MED ONCE .ROUTE ; Start 12/12/19 at 07:27; Stop 12/12/19 at 07:27; Status DC Ondansetron HCl (Zofran) 4 mg STK-MED ONCE .ROUTE ; Start 12/12/19 at 07:27; Stop 12/12/19 at 07:27; Status DC Rocuronium [place] (Zemuron) 50 mg STK-MED ONCE .ROUTE ; Start 12/12/19 at 07:27; Stop 12/12/19 at 07:27; Status DC Cefazolin Sodium (Ancef) 1 gm Q6H IVP Last administered on 12/13/19at 02:00; Start 12/12/19 at 14:00; Stop 12/13/19 at 02:01; Status DC Enoxaparin Sodium (Lovenox 40mg Syringe) 40 mg Q24H SQ Last administered on 12/14/19at 06:32; Start 12/13/19 at 07:00 Acetaminophen/ Hydrocodone Bitart (Lortab 5/325) 1 tab PRN Q3HRS PRN PO MODERATE PAIN Last administered on 12/13/19at 19:43; Start 12/12/19 at 07:45 Morphine Sulfate 5 mg/Ketorolac Tromethamine 30 mg/Ropivacaine 60 ml/Epinephrine HCl 0.5 mg/Sodium Chloride 100 ml @ 100 mls/hr 1X ONCE INT ART Last administered on 12/12/19at 09:05; Start 12/12/19 at 09:00; Stop 12/12/19 at 09:59; Status DC Sevoflurane (Ultane) 60 ml STK-MED ONCE IH ; Start 12/12/19 at 08:34; Stop 12/12/19 at 08:34; Status DC Fentanyl Citrate (Fentanyl 2ml Vial) 100 mcg STK-MED ONCE .ROUTE ; Start 12/12/19 at 08:44; Stop 12/12/19 at 08:44; Status DC Sevoflurane (Ultane) 90 ml STK-MED ONCE IH ; Start 12/12/19 at 09:34; Stop 12/12/19 at 09:34; Status DC Ephedrine Sulfate (ePHEDrine PF IN SALINE SYRINGE) 50 mg STK-MED ONCE IV ; Start 12/12/19 at 09:38; Stop 12/12/19 at 09:38; Status DC Phenylephrine HCl (PHENYLEPHRINE in 0.9% NACL PF) 1 mg STK-MED ONCE IV ; Start 12/12/19 at 09:38; Stop 12/12/19 at 09:38; Status DC Prochlorperazine Edisylate (Compazine) 10 mg STK-MED ONCE .ROUTE ; Start 12/12/19 at 10:53; Stop 12/12/19 at 10:54; Status DC Albuterol/ Ipratropium (Duoneb) 3 ml RTQID NEB Last administered on 12/14/19at 07:21; Start 12/13/19 at 08:00 Active Scripts Active Culturelle (Lactobacillus Rhamnosus Gg) 1 Each Cap.sprink 1 Cap PO BID 10 Days Budesonide 0.5 Mg/2 Ml Ampul.neb 0.5 Mg NEB RTBID Aspirin Ec (Aspirin) 81 Mg Tablet.dr 81 Mg PO DAILYWBKFT Duoneb 0.5-3(2.5) Mg/3 Ml (Albuterol/Ipratropium) 3 Ml Ampul.neb 3 Ml NEB RTQID Diltiazem 24HR Cd (Diltiazem Hcl) 120 Mg Cap.er.24h 120 Mg PO DAILY MDD 1 Flagyl (Metronidazole) 500 Mg Tablet 500 Mg PO Q8HRS 10 Days Cipro (Ciprofloxacin Hcl) 250 Mg Tablet 500 Mg PO BID 10 Days Lorazepam 0.5 Mg Tablet 0.5 Mg PO HS Reported Myrbetriq (Mirabegron) 25 Mg Tab.er.24h 25 Mg PO DAILY Alendronate Sodium 70 Mg Tablet 70 Mg PO QM Gabapentin 600 Mg Tablet 600 Mg PO HS Vitals/I & O Vital Sign - Last 24 Hours 12/13/19 12/13/19 12/13/19 12/13/19 10:31 11:29 11:33 13:19 Temp 97.6 97.6 Pulse 105 Resp 17 B/P (MAP) 116/48 (70) Pulse Ox 95 O2 Delivery Room Air Room Air Room Air Room Air 12/13/19 12/13/19 12/13/19 12/13/19 13:23 14:08 15:00 16:15 Temp 98.8 98.8 Pulse 88 Resp 18 B/P (MAP) 131/57 (81) Pulse Ox 90 O2 Delivery Room Air Room Air Room Air Room Air 12/13/19 12/13/19 12/13/19 12/13/19 19:00 19:43 20:00 20:26 Temp 98.7 98.7 Pulse 99 Resp 18 B/P (MAP) 130/50 (76) Pulse Ox 91 94 O2 Delivery Room Air Room Air Room Air Room Air 12/13/19 12/13/19 12/14/19 12/14/19 20:44 23:00 03:00 06:55 Temp 98.3 98.4 98.2 98.3 98.4 98.2 Pulse 72 108 99 Resp 18 18 17 B/P (MAP) 115/67 (83) 140/67 (91) 140/62 (88) Pulse Ox 91 94 99 O2 Delivery Room Air Room Air Room Air Room Air 12/14/19 07:21 Pulse Ox 95 O2 Delivery Room Air Intake and Output 12/13/19 12/13/19 12/14/19 15:00 23:00 07:00 Intake Total 200 ml 0 ml 300 ml Output Total 800 ml Balance 200 ml 0 ml -500 ml MEGAN MAYA MD Dec 14, 2019 08:38
[2019-12-14] MEDS ORDERED: TRAM-48 PO (08:41)
[2019-12-14] MEDS ORDERED: ACET325T9 PO (08:41)
[2019-12-14] MEDS ORDERED: ZOLP5TAB PO (08:41)
[2019-12-14] MEDS ORDERED: ENOX40DI3 SQ (08:41)
--- NOTE | 2019-12-14 08:46 | SNU/HH DC ---
DISCHARGE ORDERS DISCHARGE INFORMATION: DISCHARGE DATE: Dec 15, 2019 FINAL DIAGNOSIS Nondisplaced right periprosthetic femur fracture s/p: Open reduction internal fixation right femoral periprosthetic fracture hx osteoporosis COPD with continued tobacco abuse Problems Medical Problems: (1) Femur fracture, right Status: Acute CONDITION ON DISCHARGE: Stable CODE STATUS: Code Status: Full USP: SNF STAY <30 DAYS: Yes POST DISCHARGE ORDERS: ACTIVITY ORDERS: Activity as tolerated WEIGHT BEARING STATUS: As tolerated DIET AFTER DISCHARGE: Cardiac CHECKS AFTER DISCHARGE: CHECKS AFTER DISCHARGE: Check blood press - daily, Check your Temp as needed, Weigh Yourself Daily FOLLOW-UP: PHYSICIAN FOLLOW-UP: Dr. Rich 1 week TREATMENT/EQUIPMENT ORDERS: ADAPTIVE EQUIPMENT NEEDED: Front wheeled walker Physical Therapy For: Evalulation/Treatment Occupational Therapy For: Evaluation/Treatment DISCHARGE MEDICATIONS: Home Meds Active Scripts Tramadol Hcl (ULTRAM) 50 Mg Tablet, 1 TAB PO PRN TID PRN for pain MDD 3 Tablet(s), #18 TAB 0 Refills Prov:MEGAN MAYA MD 12/14/19 Enoxaparin Sodium (ENOXAPARIN SODIUM) 40 Mg/0.4 Ml Disp.syrin, 40 MG SQ Q24H for prevent DVT, #7 DIS.SYR Prov:MEGAN MAYA MD 12/14/19 Zolpidem Tartrate (AMBIEN) 5 Mg Tablet, 5 MG PO PRN QHS PRN for INSOMNIA, #30 TAB Prov:MEGAN MAYA MD 12/14/19 Lactobacillus Rhamnosus Gg (CULTURELLE) 1 Each Cap.sprink, 1 CAP PO BID for gut for 10 Days, #20 CAP Prov:WASHINGTON HARGROVE MD 01/04/19 Budesonide (BUDESONIDE) 0.5 Mg/2 Ml Ampul.neb, 0.5 MG NEB RTBID for copd, #60 EACH Prov:WASHINGTON HARGROVE MD 01/04/19 Aspirin (ASPIRIN EC) 81 Mg Tablet.dr, 81 MG PO DAILYWBKFT for prevention, #60 TAB.SR Prov:WASHINGTON HARGROVE MD 01/04/19 Ipratropium/Albuterol Sulfate (DUONEB 0.5-3(2.5) MG/3 ML) 3 Ml Ampul.neb, 3 ML NEB RTQID for soa, #90 EACH Prov:WASHINGTON HARGROVE MD 01/04/19 Diltiazem Hcl (DILTIAZEM 24HR CD) 120 Mg Cap.er.24h, 120 MG PO DAILY for new afib MDD 1, #90 CAP.SR Prov:WASHINGTON HARGROVE MD 01/04/19 Metronidazole (FLAGYL) 500 Mg Tablet, 500 MG PO Q8HRS for diverticulosis for 10 Days, #30 TAB Prov:WASHINGTON HARGROVE MD 01/04/19 Ciprofloxacin Hcl (CIPRO) 250 Mg Tablet, 500 MG PO BID for diverticulosis for 10 Days, #40 TAB Prov:WASHINGTON HARGROVE MD 01/04/19 Lorazepam (LORAZEPAM) 0.5 Mg Tablet, 0.5 MG PO HS for ANXIETY, #30 TAB Prov:WASHINGTON HARGROVE MD 01/04/19 Reported Medications Mirabegron (MYRBETRIQ) 25 Mg Tab.er.24h, 25 MG PO DAILY for overactive bladder, TAB.SR 12/11/19 Alendronate Sodium (ALENDRONATE SODIUM) 70 Mg Tablet, 70 MG PO QM for osteoporosis 01/03/19 Gabapentin (GABAPENTIN) 600 Mg Tablet, 600 MG PO HS for MS, CAP 07/05/15 MEGAN MAYA MD Dec 14, 2019 08:46
[2019-12-14] MEDS: HYDROcodone/APAP 5/325MG 1 TAB TABLET PO PRN ×2 (09:07→14:33)
[2019-12-14] MEDS: LACTOBACILLUS RHAMNOSUS GG 1 CAPSULE. PO SCH ×2 (09:07→21:04)
[2019-12-14] MEDS: ASPIRIN ENTERIC COATED 81 MG TABLET.DR. PO SCH (09:07)
--- NOTE | 2019-12-14 09:13 | PDOC ---
ORTHO PROGRESS NOTES Subjective Genevieve tells me that she is having difficulty with transfers, but very little pain at rest at all. No new complaints Vitals Vital Signs Date Time Temp Pulse Resp B/P (MAP) Pulse Ox O2 Delivery O2 Flow Rate FiO2 12/14/19 09:07 16 Room Air 12/14/19 09:07 99 140/62 12/14/19 07:21 95 12/14/19 06:55 98.2 98.2 Notes She is awake and alert, lying in bed. Expected amount of dried bloody drainage present. Normal motor and sensation are present in her right leg. Assessment and Plan From my standpoint, she can be transferred to rehab whenever a bed is available. She should remain on her Lovenox, toe-touch weightbearing, follow-up with me in 2 weeks JOSE SANCHEZ II, MD Dec 14, 2019 09:13
[2019-12-14 10:24] VITALS: BP 120/49
[2019-12-14] MEDS: IV NORMAL SALINE 1000ML BAG 1,000 ML IV SCH (12:09)
[2019-12-14 14:45] VITALS: BP 104/52
[2019-12-14] MEDS: DOCUSATE SODIUM 100 MG CAPSULE. PO PRN (15:35)
[2019-12-14 19:00] VITALS: BP 113/57
[2019-12-14] MEDS: GABAPENTIN 300 MG CAPSULE. PO SCH (21:04)
[2019-12-14 23:00] VITALS: BP 120/60
[2019-12-15 03:00] VITALS: BP 124/80
[2019-12-15] MEDS: IV NORMAL SALINE 1000ML BAG 1,000 ML IV SCH (06:11)
[2019-12-15] MEDS: ENOXAPARIN 40 MG/0.4 ML SYRINGE. SQ SCH (06:17)
[2019-12-15] MEDS: DOCUSATE SODIUM 100 MG CAPSULE. PO PRN ×2 (06:17→20:49)
[2019-12-15 07:00] VITALS: BP 128/68
[2019-12-15] MEDS: BUDESONIDE 0.5 MG/2 ML NEBU. NEB SCH ×2 (07:39→20:15)
[2019-12-15] MEDS: IPRATRPIUM/ALBUTEROL 0.5/2.5MG 3 ML NEBU. NEB SCH ×4 (07:39→20:15)
[2019-12-15] MEDS: ASPIRIN ENTERIC COATED 81 MG TABLET.DR. PO SCH (08:39)
[2019-12-15] MEDS: LACTOBACILLUS RHAMNOSUS GG 1 CAPSULE. PO SCH ×2 (08:39→20:49)
--- NOTE | 2019-12-15 10:12 | PDOC3 ---
Discharge Summary Visit Information Date of Admission: Dec 11, 2019 Date of Discharge: Dec 15, 2019 Final Diagnosis MECHANICAL FALL nondisplaced periprosthetic fracture about the distal right femoral stem. Changes of right total hip arthroplasty are again seen ON X-RAY hx osteoporosis COPD with continued tobacco abuse s/p OR for Open reduction internal fixation right femoral periprosthetic fracture Problems Medical Problems: (1) Femur fracture, right Status: Acute Brief Hospital Course Allergies Allergies Coded Allergies Type Severity Reaction Last Updated Verified No Known Drug Allergies 12/12/19 No Vital Signs Vital Signs Date Time Temp Pulse Resp B/P (MAP) Pulse Ox O2 Delivery O2 Flow Rate FiO2 12/15/19 08:39 89 128/68 12/15/19 07:40 97 Room Air 12/15/19 07:00 98.7 17 98.7 Brief Hospital Course Ms. Darling is a 79 old admit s/p fall, Preoperative diagnosis: Nondisplaced right periprosthetic femur fracture Procedure performed: Open reduction internal fixation right femoral periprosthetic fracture Discharge Information Condition at Discharge: Improved Follow Up: Weeks Disposition/Orders: D/C to Another Facility (skilled) Scheduled Alendronate Sodium (Alendronate Sodium) 70 Mg Tablet, 70 MG PO QM for osteoporosis, (Reported) Entered as Reported by: KASIA BROWNE on 01/03/196 Last Action: HELD on 12/11/191117 by ANA MARIA SIDDIQUI MD Aspirin (Aspirin Ec) 81 Mg Tablet.dr, 81 MG PO DAILYWBKFT for prevention, #60 Prescribed by: WASHINGTON HARGROVE on 01/04/19 1143 Last Action: Continued on 12/11/191117 by ANA MARIA SIDDIQUI MD Budesonide (Budesonide) 0.5 Mg/2 Ml Ampul.neb, 0.5 MG NEB RTBID for copd, #60 Prescribed by: WASHINGTON HARGROVE on 01/04/19 1143 Last Action: Continued on 12/11/191117 by ANA MARIA SIDDIQUI MD Ciprofloxacin Hcl (Cipro) 250 Mg Tablet, 500 MG PO BID for diverticulosis for 10 Days, #40 Prescribed by: WASHINGTON HARGROVE on 01/04/19 1143 Last Action: HELD on 12/11/191117 by ANA MARIA SIDDIQUI MD Diltiazem Hcl (Diltiazem 24HR Cd) 120 Mg Cap.er.24h, 120 MG PO DAILY for new afib MDD 1, #90 Prescribed by: WASHINGTON HARGROVE on 01/04/19 114 Last Action: Continued on 12/11/191117 by ANA MARIA SIDDIQUI MD Enoxaparin Sodium (Enoxaparin Sodium) 40 Mg/0.4 Ml Disp.syrin, 40 MG SQ Q24H for prevent DVT, #7 Prescribed by: MEGAN MAYA on 12/14/19 0841 Gabapentin (Gabapentin) 600 Mg Tablet, 600 MG PO HS for MS, (Reported) Entered as Reported by: Cecilia Gonzalez on 07/05/15 1237 Last Action: Converted on 12/11/191117 by ANA MARIA SIDDIQUI MD Ipratropium/Albuterol Sulfate (Duoneb 0.5-3(2.5) Mg/3 Ml) 3 Ml Ampul.neb, 3 ML NEB RTQID for soa, #90 Prescribed by: WASHINGTON HARGROVE on 01/04/19 114 Last Action: Continued on 12/11/191117 by ANA MARIA SIDDIQUI MD Lactobacillus Rhamnosus Gg (Culturelle) 1 Each Cap.sprink, 1 CAP PO BID for gut for 10 Days, #20 Prescribed by: WASHINGTON HARGROVE on 01/04/191142 Last Action: Continued on 12/11/191117 by ANA MARIA SIDDIQUI MD Lorazepam (Lorazepam) 0.5 Mg Tablet, 0.5 MG PO HS for ANXIETY, #30 Prescribed by: WASHINGTON HARGROVE on 01/04/191142 Last Action: HELD on 12/11/191117 by ANA MARIA SIDDIQUI MD Metronidazole (Flagyl) 500 Mg Tablet, 500 MG PO Q8HRS for diverticulosis for 10 Days, #30 Prescribed by: WASHINGTON HARGROVE on 01/04/19 114 Last Action: HELD on 12/11/191117 by ANA MARIA SIDDIQUI MD Mirabegron (Myrbetriq) 25 Mg Tab.er.24h, 25 MG PO DAILY for overactive bladder, (Reported) Entered as Reported by: RONIT CUTLER on 12/11/191836 Last Action: New Order on 12/11/191836 by RONIT CUTLER Scheduled PRN Tramadol Hcl (Ultram) 50 Mg Tablet, 1 TAB PO PRN TID PRN for pain MDD 3 Tablet(s), #18 Ref 0 Prescribed by: MEGAN MAYA on 12/14/19 0841 Zolpidem Tartrate (Ambien) 5 Mg Tablet, 5 MG PO PRN QHS PRN for INSOMNIA, #30 Prescribed by: MEGAN MAYA on 12/14/19 0841 Justicifation of Admission Dx: Justifications for Admission: Justification of Admission Dx: Yes MEGAN MAYA MD Dec 15, 2019 10:12
--- NOTE | 2019-12-15 10:53 | SNU/HH DC ---
DISCHARGE ORDERS DISCHARGE INFORMATION: DISCHARGE DATE: Dec 15, 2019 FINAL DIAGNOSIS MECHANICAL FALL nondisplaced periprosthetic fracture about the distal right femoral stem. Changes of right total hip arthroplasty are again seen ON X-RAY hx osteoporosis COPD with continued tobacco abuse s/p Open reduction internal fixation right femoral periprosthetic fracture Problems Medical Problems: (1) Femur fracture, right Status: Acute CONDITION ON DISCHARGE: Stable CODE STATUS: Code Status: Full JAIL: SNF STAY <30 DAYS: Yes POST DISCHARGE ORDERS: ACTIVITY ORDERS: Activity as tolerated WEIGHT BEARING STATUS: As tolerated DIET AFTER DISCHARGE: Cardiac CHECKS AFTER DISCHARGE: CHECKS AFTER DISCHARGE: Check blood press - daily, Check your Temp as needed, Weigh Yourself Daily FOLLOW-UP: PHYSICIAN FOLLOW-UP: Dr. Rich 1 week TREATMENT/EQUIPMENT ORDERS: ADAPTIVE EQUIPMENT NEEDED: Front wheeled walker Physical Therapy For: Evalulation/Treatment Occupational Therapy For: Evaluation/Treatment DISCHARGE MEDICATIONS: Home Meds Active Scripts Acetaminophen (TYLENOL) 325 Mg Tablet, 1-2 TAB PO QID PRN for PAIN, #60 TAB Prov:MEGAN MAYA MD 12/14/19 Tramadol Hcl (ULTRAM) 50 Mg Tablet, 1 TAB PO PRN TID PRN for pain MDD 3 Tablet(s), #18 TAB 0 Refills Prov:MEGAN MAYA MD 12/14/19 Enoxaparin Sodium (ENOXAPARIN SODIUM) 40 Mg/0.4 Ml Disp.syrin, 40 MG SQ Q24H for prevent DVT, #7 DIS.SYR Prov:MEGAN MAYA MD 12/14/19 Zolpidem Tartrate (AMBIEN) 5 Mg Tablet, 5 MG PO PRN QHS PRN for INSOMNIA, #30 TAB Prov:MEGAN MAYA MD 12/14/19 Lactobacillus Rhamnosus Gg (CULTURELLE) 1 Each Cap.sprink, 1 CAP PO BID for gut for 10 Days, #20 CAP Prov:WASHINGTON HARGROVE MD 01/04/19 Budesonide (BUDESONIDE) 0.5 Mg/2 Ml Ampul.neb, 0.5 MG NEB RTBID for copd, #60 EACH Prov:WASHINGTON HARGROVE MD 01/04/19 Aspirin (ASPIRIN EC) 81 Mg Tablet.dr, 81 MG PO DAILYWBKFT for prevention, #60 TAB.SR Prov:WASHINGTON HARGROVE MD 01/04/19 Ipratropium/Albuterol Sulfate (DUONEB 0.5-3(2.5) MG/3 ML) 3 Ml Ampul.neb, 3 ML NEB RTQID for soa, #90 EACH Prov:WASHINGTON HARGROVE MD 01/04/19 Diltiazem Hcl (DILTIAZEM 24HR CD) 120 Mg Cap.er.24h, 120 MG PO DAILY for new afib MDD 1, #90 CAP.SR Prov:WASHINGTON HAGRROVE MD 01/04/19 Reported Medications Mirabegron (MYRBETRIQ) 25 Mg Tab.er.24h, 25 MG PO DAILY for overactive bladder, TAB.SR 12/11/19 Alendronate Sodium (ALENDRONATE SODIUM) 70 Mg Tablet, 70 MG PO QM for osteoporosis 01/03/19 Gabapentin (GABAPENTIN) 600 Mg Tablet, 600 MG PO HS for MS, CAP 07/05/15 Discontinued Scripts Metronidazole (FLAGYL) 500 Mg Tablet, 500 MG PO Q8HRS for diverticulosis for 10 Days, #30 TAB Prov:WASHINGTON HARGROVE MD 01/04/19 Ciprofloxacin Hcl (CIPRO) 250 Mg Tablet, 500 MG PO BID for diverticulosis for 10 Days, #40 TAB Prov:WASHINGTON HARGROVE MD 01/04/19 Lorazepam (LORAZEPAM) 0.5 Mg Tablet, 0.5 MG PO HS for ANXIETY, #30 TAB Prov:WASHINGTON HARGROVE MD 01/04/19 MEGAN MAAY MD Dec 15, 2019 10:52
[2019-12-15 11:00] VITALS: BP 126/63
[2019-12-15] MEDS ORDERED: POLYETHYLENE GLYCOL 3350 17 GM PACKET. PO ONE (11:45)
[2019-12-15] MEDS ORDERED: POLYETHYLENE GLYCOL 3350 17 GM PACKET. PO PRN (11:45)
[2019-12-15] MEDS: HYDROcodone/APAP 5/325MG 1 TAB TABLET PO PRN ×2 (11:49→15:26)
[2019-12-15] MEDS ORDERED: ENOX40DI3 SQ (12:08)
[2019-12-15 15:00] VITALS: BP 115/58
[2019-12-15 19:00] VITALS: BP 116/62
[2019-12-15] MEDS: GABAPENTIN 300 MG CAPSULE. PO SCH (20:50)
[2019-12-15 23:15] VITALS: BP 130/69
[2019-12-16 02:59] VITALS: BP 132/69
[2019-12-16] MEDS: ENOXAPARIN 40 MG/0.4 ML SYRINGE. SQ SCH (06:36)
[2019-12-16] MEDS: BUDESONIDE 0.5 MG/2 ML NEBU. NEB SCH (07:29)
[2019-12-16] MEDS: IPRATRPIUM/ALBUTEROL 0.5/2.5MG 3 ML NEBU. NEB SCH ×2 (07:29→11:05)
[2019-12-16 07:52] VITALS: BP 127/58
[2019-12-16] MEDS: LACTOBACILLUS RHAMNOSUS GG 1 CAPSULE. PO SCH (08:08)
[2019-12-16] MEDS: ASPIRIN ENTERIC COATED 81 MG TABLET.DR. PO SCH (08:08)
[2019-12-16] MEDS: DOCUSATE SODIUM 100 MG CAPSULE. PO PRN (08:09)
--- NOTE | 2019-12-16 10:17 | PDOC ---
PROGRESS NOTES Chief Complaint Chief Complaint late entry, Pt seen 12/14 pain better, she was emotionally upset about being in hospital and pain and lack of mobility, new adjustment disorder History of Present Illness History of Present Illness MECHANICAL FALL nondisplaced periprosthetic fracture about the distal right femoral stem. Changes of right total hip arthroplasty are again seen ON X-RAY hx osteoporosis COPD with continued tobacco abuse Preoperative diagnosis: Nondisplaced right periprosthetic femur fracture Procedure performed: Open reduction internal fixation right femoral periprosthetic fracture Vitals Vitals Vital Signs Date Time Temp Pulse Resp B/P (MAP) Pulse Ox O2 Delivery O2 Flow Rate FiO2 12/16/19 08:15 Room Air 12/16/19 08:08 86 127/58 12/16/19 07:52 97.6 19 96 97.6 Physical Exam General: Alert, Oriented X3, Cooperative, No acute distress, mild distress Heart: Regular rate, Normal S1, Normal S2 Lungs: Clear Abdomen: Normal bowel sounds, Soft Extremities: No cyanosis Assessment and Plan Assessmemt and Plan Problems Medical Problems: (1) Femur fracture, right Status: Acute Comment Review of Relevant I have reviewed the following items javed (where applicable) has been applied. Medications Current Medications Morphine Sulfate (Morphine Sulfate) 2 mg PRN Q2HR PRN IV MODERATE PAIN 4-6 Last administered on 12/12/19at 02:28; Start 12/11/19 at 02:45 Morphine Sulfate (Morphine Sulfate) 4 mg PRN Q2HR PRN IV SEVERE PAIN 7-10 Last administered on 12/13/19at 13:23; Start 12/11/19 at 02:45 Sodium Chloride 1,000 ml @ 75 mls/hr [id number] IV Last administered on 12/11/19at 03:04; Start 12/11/19 at 03:00; Stop 12/11/19 at 11:50; Status DC Fentanyl Citrate (Fentanyl 2ml Vial) 25 mcg PRN Q5MIN PRN IV MILD PAIN 1-3; Start 12/12/19 at 07:00; Stop 12/12/19 at 15:04; Status DC Fentanyl Citrate (Fentanyl 2ml Vial) 50 mcg PRN Q5MIN PRN IV MODERATE TO SEVERE PAIN; Start 12/12/19 at 07:00; Stop 12/12/19 at 15:04; Status DC Morphine Sulfate (Morphine Sulfate) 1 mg PRN Q10MIN PRN IV SEVERE PAIN 7-10; Start 12/12/19 at 07:00; Stop 12/12/19 at 15:04; Status DC Ringer's Solution 1,000 ml @ 30 mls/hr Q24H IV ; Start 12/12/19 at 07:00; Stop 12/12/19 at 15:05; Status DC Hydromorphone HCl (Dilaudid) 0.5 mg PRN Q10MIN PRN IV SEV PAIN, Second choice; Start 12/12/19 at 07:00; Stop 12/12/19 at 15:05; Status DC Prochlorperazine Edisylate (Compazine) 5 mg PACU PRN PRN IV NAUSEA, MRX1 Last administered on 12/12/19at 10:58; Start 12/12/19 at 07:00; Stop 12/12/19 at 15:05; Status DC Aspirin (Ecotrin) 81 mg DAILYWBKFT PO Last administered on 12/16/19at 08:08; Start 12/11/19 at 12:00 Budesonide (Pulmicort) 0.5 mg RTBID NEB Last administered on 12/16/19at 07:29; Start 12/11/19 at 12:00 Diltiazem HCl (Cardizem 24hr Cd) 120 mg DAILY PO Last administered on 12/16/19at 08:08; Start 12/11/19 at 12:00 Albuterol/ Ipratropium (Duoneb) 3 ml RTQID NEB ; Start 12/11/19 at 12:00; Status Cancel Lactobacillus Rhamnosus (Culturelle) 1 cap BID PO Last administered on 12/16/19at 08:08; Start 12/11/19 at 12:00 Gabapentin (Neurontin) 600 mg QHS PO Last administered on 12/15/19at 20:50; Start 12/11/19 at 21:00 Sodium Chloride (Normal Saline Flush) 3 ml QSHIFT PRN IV AFTER MEDS AND BLOOD DRAWS; Start 12/11/19 at 11:30 Sodium Chloride 1,000 ml @ 55 mls/hr [id number] IV Last administered on 12/13/19at 08:25; Start 12/11/19 at 11:25; Stop 12/15/19 at 06:53; Status DC Ondansetron HCl (Zofran) 4 mg PRN Q4HRS PRN IV NAUSEA/VOMITING; Start 12/11/19 at 11:30 Zolpidem Tartrate (Ambien) 5 mg PRN QHS PRN PO INSOMNIA; Start 12/11/19 at 11:30 Acetaminophen (Tylenol) 650 mg PRN Q4HRS PRN PO TEMP OVER 100.4F OR MILD PAIN; Start 12/11/19 at 11:30 Al Hydroxide/Mg Hydroxide (Mylanta Plus Xs) 30 ml PRN DAILY PRN PO HEARTBURN / GAS; Start 12/11/19 at 11:30 Clonidine HCl (Catapres) 0.1 mg PRN Q6HRS PRN PO SBP>160 OR DBP>90; Start 12/11/19 at 11:30 Sodium Monofluorophosphate (Fleet Adult) 133 ml PRN DAILY PRN SC CONSTIPATION; Start 12/11/19 at 11:30 Docusate Sodium (Colace) 100 mg PRN BID PRN PO HARD STOOLS Last administered on 12/16/19at 08:09; Start 12/11/19 at 11:30 Albuterol/ Ipratropium (Duoneb) 3 ml Q4HRS NEB Last administered on 12/12/19at 20:16; Start 12/11/19 at 12:00; Stop 12/12/19 at 22:04; Status DC Guaifenesin (Robitussin) 200 mg PRN Q4HRS PRN PO COUGH; Start 12/11/19 at 11:30 Enoxaparin Sodium (Lovenox 40mg Syringe) 40 mg Q24H SQ Last administered on 12/11/19at 11:55; Start 12/11/19 at 12:00; Stop 12/12/19 at 11:00; Status DC Cefazolin Sodium (Ancef) 1 gm PREOP PRN PRN IVP PREOP; Start 12/12/19 at 06:00; Stop 12/12/19 at 12:00; Status DC Propofol (Diprivan) 200 mg STK-MED ONCE IV ; Start 12/12/19 at 07:27; Stop 0 at 07:27; Status DC Dexamethasone Sodium Phosphate (Decadron) 4 mg STK-MED ONCE .ROUTE ; Start 12/12/19 at 07:27; Stop 12/12/19 at 07:27; Status DC Lidocaine HCl (Lidocaine Pf 2% Vial) 5 ml STK-MED ONCE .ROUTE ; Start 12/12/19 at 07:27; Stop 12/12/19 at 07:27; Status DC Ondansetron HCl (Zofran) 4 mg STK-MED ONCE .ROUTE ; Start 12/12/19 at 07:27; Stop 12/12/19 at 07:27; Status DC Rocuronium [place] (Zemuron) 50 mg STK-MED ONCE .ROUTE ; Start 12/12/19 at 07:27; Stop 12/12/19 at 07:27; Status DC Cefazolin Sodium (Ancef) 1 gm Q6H IVP Last administered on 12/13/19at 02:00; Start 12/12/19 at 14:00; Stop 12/13/19 at 02:01; Status DC Enoxaparin Sodium (Lovenox 40mg Syringe) 40 mg Q24H SQ Last administered on 12/16/19at 06:36; Start 12/13/19 at 07:00 Acetaminophen/ Hydrocodone Bitart (Lortab 5/325) 1 tab PRN Q3HRS PRN PO MODERATE PAIN Last administered on 12/15/19at 15:26; Start 12/12/19 at 07:45 Morphine Sulfate 5 mg/Ketorolac Tromethamine 30 mg/Ropivacaine 60 ml/Epinephrine HCl 0.5 mg/Sodium Chloride 100 ml @ 100 mls/hr 1X ONCE INT ART Last administered on 12/12/19at 09:05; Start 12/12/19 at 09:00; Stop 12/12/19 at 09:59; Status DC Sevoflurane (Ultane) 60 ml STK-MED ONCE IH ; Start 12/12/19 at 08:34; Stop 12/12/19 at 08:34; Status DC Fentanyl Citrate (Fentanyl 2ml Vial) 100 mcg STK-MED ONCE .ROUTE ; Start 12/12/19 at 08:44; Stop 12/12/19 at 08:44; Status DC Sevoflurane (Ultane) 90 ml STK-MED ONCE IH ; Start 12/12/19 at 09:34; Stop 12/12/19 at 09:34; Status DC Ephedrine Sulfate (ePHEDrine PF IN SALINE SYRINGE) 50 mg STK-MED ONCE IV ; Start 12/12/19 at 09:38; Stop 12/12/19 at 09:38; Status DC Phenylephrine HCl (PHENYLEPHRINE in 0.9% NACL PF) 1 mg STK-MED ONCE IV ; Start 12/12/19 at 09:38; Stop 12/12/19 at 09:38; Status DC Prochlorperazine Edisylate (Compazine) 10 mg STK-MED ONCE .ROUTE ; Start 12/12/19 at 10:53; Stop 12/12/19 at 10:54; Status DC Albuterol/ Ipratropium (Duoneb) 3 ml RTQID NEB Last administered on 12/16/19at 07:29; Start 12/13/19 at 08:00 Polyethylene Glycol (miraLAX PACKET) 17 gm 1X ONCE PO Last administered on 12/15/19at 11:50; Start 12/15/19 at 11:45; Stop 12/15/19 at 11:46; Status DC Polyethylene Glycol (miraLAX PACKET) 17 gm PRN DAILY PRN PO CONSTIPATION Last administered on 12/16/19at 06:36; Start 12/15/19 at 11:45 Active Scripts Active Enoxaparin Sodium 40 Mg/0.4 Ml Disp.syrin 40 Mg SQ Q24H Tylenol (Acetaminophen) 325 Mg Tablet 1-2 Tab PO QID PRN Ultram (Tramadol Hcl) 50 Mg Tablet 1 Tab PO PRN TID PRN MDD 3 Tablet(s) Ambien (Zolpidem Tartrate) 5 Mg Tablet 5 Mg PO PRN QHS PRN Culturelle (Lactobacillus Rhamnosus Gg) 1 Each Cap.sprink 1 Cap PO BID 10 Days Budesonide 0.5 Mg/2 Ml Ampul.neb 0.5 Mg NEB RTBID Aspirin Ec (Aspirin) 81 Mg Tablet.dr 81 Mg PO DAILYWBKFT Duoneb 0.5-3(2.5) Mg/3 Ml (Albuterol/Ipratropium) 3 Ml Ampul.neb 3 Ml NEB RTQID Diltiazem 24HR Cd (Diltiazem Hcl) 120 Mg Cap.er.24h 120 Mg PO DAILY MDD 1 Reported Myrbetriq (Mirabegron) 25 Mg Tab.er.24h 25 Mg PO DAILY Alendronate Sodium 70 Mg Tablet 70 Mg PO QM Gabapentin 600 Mg Tablet 600 Mg PO HS Vitals/I & O Vital Sign - Last 24 Hours 12/15/19 12/15/19 12/15/19 12/15/19 11:00 11:24 11:49 12:52 Temp 98.3 98.3 Pulse 109 Resp 17 16 16 B/P (MAP) 126/63 (84) Pulse Ox 96 94 O2 Delivery Room Air Room Air Room Air Room Air 12/15/19 12/15/19 12/15/19 12/15/19 15:00 15:26 16:36 16:41 Temp 97.7 97.7 Pulse 103 Resp 17 16 18 B/P (MAP) 115/58 (77) Pulse Ox 96 O2 Delivery Room Air Room Air Room Air Room Air 12/15/19 12/15/19 12/15/19 12/15/19 19:00 19:45 20:17 23:15 Temp 98.1 98.0 98.1 98.0 Pulse 98 99 Resp 20 20 B/P (MAP) 116/62 (80) 130/69 (89) Pulse Ox 20 95 95 O2 Delivery Room Air Room Air Room Air Room Air 12/16/19 12/16/19 12/16/19 12/16/19 02:59 07:30 07:52 08:08 Temp 97.9 97.6 97.9 97.6 Pulse 100 86 86 Resp 22 19 B/P (MAP) 132/69 (90) 127/58 (81) 127/58 Pulse Ox 96 96 96 O2 Delivery Room Air Room Air Room Air 12/16/19 08:15 O2 Delivery Room Air Intake and Output 12/15/19 12/15/19 12/16/19 15:00 23:00 07:00 Intake Total 400 ml 120 ml 300 ml Output Total 1000 ml Balance 400 ml 120 ml -700 ml MEGAN MAYA MD Dec 16, 2019 10:17
[2019-12-16] MEDS: HYDROcodone/APAP 5/325MG 1 TAB TABLET PO PRN (10:34)
--- NOTE | 2019-12-16 10:34 | PDOC ---
PROGRESS NOTES Chief Complaint Chief Complaint 12/15 emotionally better today, will have her sit in the sunshine in her room. friends have brought a large flower arrangement to skilled when able still toe touch on right, and she uses roller walker at baseline History of Present Illness History of Present Illness MECHANICAL FALL nondisplaced periprosthetic fracture about the distal right femoral stem. Changes of right total hip arthroplasty are again seen ON X-RAY hx osteoporosis COPD with continued tobacco abuse Preoperative diagnosis: Nondisplaced right periprosthetic femur fracture Procedure performed: Open reduction internal fixation right femoral pe riprosthetic fracture Vitals Vitals Vital Signs Date Time Temp Pulse Resp B/P (MAP) Pulse Ox O2 Delivery O2 Flow Rate FiO2 12/16/19 08:15 Room Air 12/16/19 08:08 86 127/58 12/16/19 07:52 97.6 19 96 97.6 Physical Exam General: Alert, Oriented X3, Cooperative, No acute distress, mild distress Heart: Regular rate, Normal S1, Normal S2 Lungs: Clear Abdomen: Normal bowel sounds, Soft Extremities: No cyanosis Assessment and Plan Assessmemt and Plan Problems Medical Problems: (1) Femur fracture, right Status: Acute Comment Review of Relevant I have reviewed the following items javed (where applicable) has been applied. Medications Current Medications Morphine Sulfate (Morphine Sulfate) 2 mg PRN Q2HR PRN IV MODERATE PAIN 4-6 Last administered on 12/12/19at 02:28; Start 12/11/19 at 02:45 Morphine Sulfate (Morphine Sulfate) 4 mg PRN Q2HR PRN IV SEVERE PAIN 7-10 Last administered on 12/13/19at 13:23; Start 12/11/19 at 02:45 Sodium Chloride 1,000 ml @ 75 mls/hr [id number] IV Last administered on 12/11/19at 03:04; Start 12/11/19 at 03:00; Stop 12/11/19 at 11:50; Status DC Fentanyl Citrate (Fentanyl 2ml Vial) 25 mcg PRN Q5MIN PRN IV MILD PAIN 1-3; Start 12/12/19 at 07:00; Stop 12/12/19 at 15:04; Status DC Fentanyl Citrate (Fentanyl 2ml Vial) 50 mcg PRN Q5MIN PRN IV MODERATE TO SEVERE PAIN; Start 12/12/19 at 07:00; Stop 12/12/19 at 15:04; Status DC Morphine Sulfate (Morphine Sulfate) 1 mg PRN Q10MIN PRN IV SEVERE PAIN 7-10; Start 12/12/19 at 07:00; Stop 12/12/19 at 15:04; Status DC Ringer's Solution 1,000 ml @ 30 mls/hr Q24H IV ; Start 12/12/19 at 07:00; Stop 12/12/19 at 15:05; Status DC Hydromorphone HCl (Dilaudid) 0.5 mg PRN Q10MIN PRN IV SEV PAIN, Second choice; Start 12/12/19 at 07:00; Stop 12/12/19 at 15:05; Status DC Prochlorperazine Edisylate (Compazine) 5 mg PACU PRN PRN IV NAUSEA, MRX1 Last administered on 12/12/19at 10:58; Start 12/12/19 at 07:00; Stop 12/12/19 at 15:05; Status DC Aspirin (Ecotrin) 81 mg DAILYWBKFT PO Last administered on 12/16/19at 08:08; Start 12/11/19 at 12:00 Budesonide (Pulmicort) 0.5 mg RTBID NEB Last administered on 12/16/19at 07:29; Start 12/11/19 at 12:00 Diltiazem HCl (Cardizem 24hr Cd) 120 mg DAILY PO Last administered on 12/16/19at 08:08; Start 12/11/19 at 12:00 Albuterol/ Ipratropium (Duoneb) 3 ml RTQID NEB ; Start 12/11/19 at 12:00; Status Cancel Lactobacillus Rhamnosus (Culturelle) 1 cap BID PO Last administered on 12/16/19at 08:08; Start 12/11/19 at 12:00 Gabapentin (Neurontin) 600 mg QHS PO Last administered on 12/15/19at 20:50; Start 12/11/19 at 21:00 Sodium Chloride (Normal Saline Flush) 3 ml QSHIFT PRN IV AFTER MEDS AND BLOOD DRAWS; Start 12/11/19 at 11:30 Sodium Chloride 1,000 ml @ 55 mls/hr [id number] IV Last administered on 12/13/19at 08:25; Start 12/11/19 at 11:25; Stop 12/15/19 at 06:53; Status DC Ondansetron HCl (Zofran) 4 mg PRN Q4HRS PRN IV NAUSEA/VOMITING; Start 12/11/19 at 11:30 Zolpidem Tartrate (Ambien) 5 mg PRN QHS PRN PO INSOMNIA; Start 12/11/19 at 11:30 Acetaminophen (Tylenol) 650 mg PRN Q4HRS PRN PO TEMP OVER 100.4F OR MILD PAIN; Start 12/11/19 at 11:30 Al Hydroxide/Mg Hydroxide (Mylanta Plus Xs) 30 ml PRN DAILY PRN PO HEARTBURN / GAS; Start 12/11/19 at 11:30 Clonidine HCl (Catapres) 0.1 mg PRN Q6HRS PRN PO SBP>160 OR DBP>90; Start 12/11/19 at 11:30 Sodium Monofluorophosphate (Fleet Adult) 133 ml PRN DAILY PRN MI CONSTIPATION; Start 12/11/19 at 11:30 Docusate Sodium (Colace) 100 mg PRN BID PRN PO HARD STOOLS Last administered on 12/16/19at 08:09; Start 12/11/19 at 11:30 Albuterol/ Ipratropium (Duoneb) 3 ml Q4HRS NEB Last administered on 12/12/19at 20:16; Start 12/11/19 at 12:00; Stop 12/12/19 at 22:04; Status DC Guaifenesin (Robitussin) 200 mg PRN Q4HRS PRN PO COUGH; Start 12/11/19 at 11:30 Enoxaparin Sodium (Lovenox 40mg Syringe) 40 mg Q24H SQ Last administered on 12/11/19at 11:55; Start 12/11/19 at 12:00; Stop 12/12/19 at 11:00; Status DC Cefazolin Sodium (Ancef) 1 gm PREOP PRN PRN IVP PREOP; Start 12/12/19 at 06:00; Stop 12/12/19 at 12:00; Status DC Propofol (Diprivan) 200 mg STK-MED ONCE IV ; Start 12/12/19 at 07:27; Stop 12/12/19 at 07:27; Status DC Dexamethasone Sodium Phosphate (Decadron) 4 mg STK-MED ONCE .ROUTE ; Start 12/12/19 at 07:27; Stop 12/12/19 at 07:27; Status DC Lidocaine HCl (Lidocaine Pf 2% Vial) 5 ml STK-MED ONCE .ROUTE ; Start 12/12/19 at 07:27; Stop 12/12/19 at 07:27; Status DC Ondansetron HCl (Zofran) 4 mg STK-MED ONCE .ROUTE ; Start 12/12/19 at 07:27; Stop 12/12/19 at 07:27; Status DC Rocuronium [place] (Zemuron) 50 mg STK-MED ONCE .ROUTE ; Start 12/12/19 at 07:27; Stop 12/12/19 at 07:27; Status DC Cefazolin Sodium (Ancef) 1 gm Q6H IVP Last administered on 12/13/19at 02:00; Start 12/12/19 at 14:00; Stop 12/13/19 at 02:01; Status DC Enoxaparin Sodium (Lovenox 40mg Syringe) 40 mg Q24H SQ Last administered on 12/16/19at 06:36; Start 12/13/19 at 07:00 Acetaminophen/ Hydrocodone Bitart (Lortab 5/325) 1 tab PRN Q3HRS PRN PO MODERA TE PAIN Last administered on 12/15/19at 15:26; Start 12/12/19 at 07:45 Morphine Sulfate 5 mg/Ketorolac Tromethamine 30 mg/Ropivacaine 60 ml/Epinephrine HCl 0.5 mg/Sodium Chloride 100 ml @ 100 mls/hr 1X ONCE INT ART Last administered on 12/12/19at 09:05; Start 12/12/19 at 09:00; Stop 12/12/19 at 09:59; Status DC Sevoflurane (Ultane) 60 ml STK-MED ONCE IH ; Start 12/12/19 at 08:34; Stop 12/12/19 at 08:34; Status DC Fentanyl Citrate (Fentanyl 2ml Vial) 100 mcg STK-MED ONCE .ROUTE ; Start 12/12/19 at 08:44; Stop 12/12/19 at 08:44; Status DC Sevoflurane (Ultane) 90 ml STK-MED ONCE IH ; Start 12/12/19 at 09:34; Stop 12/12/19 at 09:34; Status DC Ephedrine Sulfate (ePHEDrine PF IN SALINE SYRINGE) 50 mg STK-MED ONCE IV ; Start 12/12/19 at 09:38; Stop 12/12/19 at 09:38; Status DC Phenylephrine HCl (PHENYLEPHRINE in 0.9% NACL PF) 1 mg STK-MED ONCE IV ; Start 12/12/19 at 09:38; Stop 12/12/19 at 09:38; Status DC Prochlorperazine Edisylate (Compazine) 10 mg STK-MED ONCE .ROUTE ; Start 12/12/19 at 10:53; Stop 12/12/19 at 10:54; Status DC Albuterol/ Ipratropium (Duoneb) 3 ml RTQID NEB Last administered on 12/16/19at 07:29; Start 12/13/19 at 08:00 Polyethylene Glycol (miraLAX PACKET) 17 gm 1X ONCE PO Last administered on 12/15/19at 11:50; Start 12/15/19 at 11:45; Stop 12/15/19 at 11:46; Status DC Polyethylene Glycol (miraLAX PACKET) 17 gm PRN DAILY PRN PO CONSTIPATION Last administered on 12/16/19at 06:36; Start 12/15/19 at 11:45 Active Scripts Active Enoxaparin Sodium 40 Mg/0.4 Ml Disp.syrin 40 Mg SQ Q24H Tylenol (Acetaminophen) 325 Mg Tablet 1-2 Tab PO QID PRN Ultram (Tramadol Hcl) 50 Mg Tablet 1 Tab PO PRN TID PRN MDD 3 Tablet(s) Ambien (Zolpidem Tartrate) 5 Mg Tablet 5 Mg PO PRN QHS PRN Culturelle (Lactobacillus Rhamnosus Gg) 1 Each Cap.sprink 1 Cap PO BID 10 Days Budesonide 0.5 Mg/2 Ml Ampul.neb 0.5 Mg NEB RTBID Aspirin Ec (Aspirin) 81 Mg Tablet.dr 81 Mg PO DAILYWBKFT Duoneb 0.5-3(2.5) Mg/3 Ml (Albuterol/Ipratropium) 3 Ml Ampul.neb 3 Ml NEB RTQID Diltiazem 24HR Cd (Diltiazem Hcl) 120 Mg Cap.er.24h 120 Mg PO DAILY MDD 1 Reported Myrbetriq (Mirabegron) 25 Mg Tab.er.24h 25 Mg PO DAILY Alendronate Sodium 70 Mg Tablet 70 Mg PO QM Gabapentin 600 Mg Tablet 600 Mg PO HS Vitals/I & O Vital Sign - Last 24 Hours 12/15/19 12/15/19 12/15/19 12/15/19 11:00 11:24 11:49 12:52 Temp 98.3 98.3 Pulse 109 Resp 17 16 16 B/P (MAP) 126/63 (84) Pulse Ox 96 94 O2 Delivery Room Air Room Air Room Air Room Air 12/15/19 12/15/19 12/15/19 12/15/19 15:00 15:26 16:36 16:41 Temp 97.7 97.7 Pulse 103 Resp 17 16 18 B/P (MAP) 115/58 (77) Pulse Ox 96 O2 Delivery Room Air Room Air Room Air Room Air 12/15/19 12/15/19 12/15/19 12/15/19 19:00 19:45 20:17 23:15 Temp 98.1 98.0 98.1 98.0 Pulse 98 99 Resp 20 20 B/P (MAP) 116/62 (80) 130/69 (89) Pulse Ox 20 95 95 O2 Delivery Room Air Room Air Room Air Room Air 12/16/19 12/16/19 12/16/19 12/16/19 02:59 07:30 07:52 08:08 Temp 97.9 97.6 97.9 97.6 Pulse 100 86 86 Resp 22 19 B/P (MAP) 132/69 (90) 127/58 (81) 127/58 Pulse Ox 96 96 96 O2 Delivery Room Air Room Air Room Air 12/16/19 08:15 O2 Delivery Room Air Intake and Output 12/15/19 12/15/19 12/16/19 15:00 23:00 07:00 Intake Total 400 ml 120 ml 300 ml Output Total 1000 ml Balance 400 ml 120 ml -700 ml MEGAN MAYA MD Dec 16, 2019 10:34
[2019-12-16 11:01] VITALS: BP 114/67
== END 2019-12-16 14:02 | DRG 481 ==
LOC: ER 23:16 → 4 NORTH 12-11 01:48
PROVIDERS: ADMIT Internal Medicine; ATTEND Internal Medicine
PROC: 0QS604Z Reposition Right Upper Femur with Internal Fixation Device, Open Approach (ICD-10-PCS; principal; 2019-12-12 08:00)
DX: M97.01XA Periprosthetic fracture around internal prosthetic right hip joint, initial encounter (principal); E44.0 Moderate protein-calorie malnutrition; Z68.24 Body mass index [BMI] 24.0-24.9, adult; F17.210 Nicotine dependence, cigarettes, uncomplicated; J44.9 Chronic obstructive pulmonary disease, unspecified; M81.0 Age-related osteoporosis without current pathological fracture; K57.90 Diverticulosis of intestine, part unspecified, without perforation or abscess without bleeding; K59.00 Constipation, unspecified; W18.30XA Fall on same level, unspecified, initial encounter; Y93.01 Activity, walking, marching and hiking; Z96.641 Presence of right artificial hip joint; F43.20 Adjustment disorder, unspecified; Z90.710 Acquired absence of both cervix and uterus; Z82.5 Family history of asthma and other chronic lower respiratory diseases; Z82.3 Family history of stroke; Y92.89 Other specified places as the place of occurrence of the external cause; Y99.8 Other external cause status; Z98.51 Tubal ligation status; Z20.828 Contact with and (suspected) exposure to other viral communicable diseases
CPT/HCPCS: 36415; 73502; 73552; 76000; 80048; 80053; 82306; 85025; 94640; 94760; 99285; A7015; C1713; J0690; J0780; J1100; J1650; J2270; J2370; J2405; J2704; J3010; J3490; J7030; U0003; 97110-GP; 97530-GO; 97530-GP; 97535-GO; G0378; J7626

== ENCOUNTER 2021-06-14 07:47 | Day surgery (SDC) | payer MEDICARE ==
[~2021-06-14] VITALS: Ht 172.7 cm; Wt 75.0 kg
[~2021-06-14 07:47] MED LIST changes: +ACET325T9 PO; -ALEN70TA6 PO; +ALEN70TA71 PO; -ASPI-612 PO; +ASPI-886 PO; +CARB15DR3 OP; +CLINDAMYCIN 900MG PREMIX 50 ML IV PRN; +DEXAMETHASONE SOD PHOS 4 MG/ML VIAL ONE; +DICY20TA PO; -DICY20TA3 PO; +ENOX40DI3 SQ; +HYDROmorphone 2 MG/ML VIAL IVP PRN; +IV RINGERS,LACTATED 1000ML 1,000 ML IV SCH; +LIDOCAINE 1% PF 5 ML VIAL. ONE; +LORA0.5T96 PO; +MIRA25TA PO; +MORPHINE SULFATE 2 MG/ML INJ. IVP PRN; +MULT-121 PO; +ONDANSETRON PF 4 MG/2 ML VIAL. ONE; +PRED5DRO20 OP; +PROCHLORPERAZINE 10 MG/2 ML VIAL. IVP PRN; +PROPOFOL 10 MG/ML (20ML) VIAL. IV ONE; +TRAM-48 PO; +ZOLP5TAB PO; +fentaNYL PF VIAL 100 MCG/2 ML VIAL IVP PRN
[2021-06-14] MEDS ORDERED: 0.9 % SODIUM CHLORIDE 20 ML VIAL. IJ ONE (07:53)
[2021-06-14 08:25] VITALS: BP 129/62
[2021-06-14] MEDS ORDERED: ONABOTULINUMTOXINA 100 UNIT VIAL. ID ONE (08:30)
[2021-06-14] MEDS ORDERED: PHENYLEPHRINE in 0.9% NACL PF 1 MG/10 ML SYRINGE. IV ONE (09:42)
[2021-06-14] MEDS ORDERED: SEVOFLURANE 16 TO 30 MINUTES. IH ONE (09:42)
[2021-06-14] MEDS ORDERED: diphenhydrAMINE 50 MG/ML VIAL IV PRN (10:15)
[2021-06-14] MEDS ORDERED: HYDROcodone/APAP 5/325MG 1 TAB TABLET PO PRN (10:15)
[2021-06-14] MEDS ORDERED: diphenhydrAMINE HCL 25 MG CAPSULE PO PRN (10:15)
[2021-06-14] MEDS ORDERED: 0.9 % SODIUM CHLORIDE 10 ML DISP.SYRIN. IV PRN (10:15)
[2021-06-14] MEDS ORDERED: NALOXONE 0.4 MG/ML VIAL. IV PRN (10:15)
[2021-06-14] MEDS ORDERED: CALCIUM CARBONATE 500 MG TAB.CHEW PO PRN (10:15)
[2021-06-14] MEDS ORDERED: MAG HYDROX/ALUMINUM HYD/SIMETH 30 ML ORAL.SUSP PO PRN (10:15)
[2021-06-14] MEDS ORDERED: SIMETHICONE 80 MG TAB.CHEW PO PRN (10:15)
[2021-06-14] MEDS ORDERED: fentaNYL PF VIAL 100 MCG/2 ML VIAL ONE (10:19)
--- NOTE | 2021-06-14 10:20 | PDOC4 ---
BRIEF OPERATIVE NOTE Date: Jun 14, 2021 Pre-Op Diagnosis urge incontinence Post-Op Diagnosis same Procedure Performed operative cystoscopy with bladder botox Surgeon Dr. Ivana Costa Anesthesiologist Dr. Sidhu Anesthesia Type: General Blood Loss <5cc IV Fluid see anesthesia records Urine Output none Specimens Obtained none Findings normal bladder Complications none Operative Note [id number] IVANA COSTA MD Jun 14, 2021 10:20
[2021-06-14 10:50] VITALS: BP 110/58
--- NOTE | 2021-06-14 12:47 | OP ---
DATE OF SURGERY: 06/14/2021 PREOPERATIVE DIAGNOSES: Urinary urge incontinence and overactive bladder. POSTOPERATIVE DIAGNOSES: Urinary urge incontinence and overactive bladder. PROCEDURE: Operative cystoscopy with injection of bladder Botox. SURGEON: Ivana Clifton MD [employer]: OR personnel. ANESTHESIA: General with an LMA. ANESTHESIOLOGIST: Sunday Sidhu MD BLOOD LOSS: Less than 5 mL. URINE OUTPUT: Mixed in with the output of the cystoscope, so nothing discretely measured. SPECIMENS: None. COMPLICATIONS: None. FINDINGS: Normal bladder. DESCRIPTION OF PROCEDURE: This patient was taken to the operating room where general anesthesia was placed. The patient was placed in a dorsal lithotomy position in [facility], exteriorly was prepped and draped in the normal sterile fashion. The operative hysteroscope was primed and ready, placed in. Normal bladder bubble. Normal bladder was seen. The flexible catheter was set at 3. Once the ureteral openings were seen at the trigone going in and going above it, placing the catheter needle at 3. Using 100 units of bladder Botox mixed in 10 mL of injectable saline, twenty 0.5 mL injections were done going across in 10 and 10 injecting across the detrusor muscle. Once this was done, the 1 mL saline flush was used to get any remaining Botox out of the catheter and it was placed in. There was no active bleeding, no complications. The cystoscope was removed and the procedure was ended. All counts were correct by OR personnel. The patient was awakened from anesthesia and brought to recovery room in stable condition. BRADLEY/SALINAS/IDA DR: Jorge TID: [id number]
== END 2021-06-14 11:10 | disposition home or self-care (01) ==
LOC: SURG 07:47
PROVIDERS: ATTEND Obstetrics & Gynecology
DX: N32.81 Overactive bladder (principal); N39.41 Urge incontinence; I48.91 Unspecified atrial fibrillation; J44.9 Chronic obstructive pulmonary disease, unspecified; F41.9 Anxiety disorder, unspecified; F17.210 Nicotine dependence, cigarettes, uncomplicated; Z87.440 Personal history of urinary (tract) infections; Z79.82 Long term (current) use of aspirin; Z79.899 Other long term (current) drug therapy; Z72.89 Other problems related to lifestyle; Z98.890 Other specified postprocedural states; Z98.51 Tubal ligation status
CPT/HCPCS: 52287; A4911; A4930; J0585; J1100; J1956; J2405; J2704; J3010; J3490; J2370

== ENCOUNTER → 2021-09-19 | Outpatient (CLI) | payer MEDICARE ==
[~2021-09-19] MED LIST changes: -CLINDAMYCIN 900MG PREMIX 50 ML IV PRN; -DEXAMETHASONE SOD PHOS 4 MG/ML VIAL ONE; -HYDROmorphone 2 MG/ML VIAL IVP PRN; -IV RINGERS,LACTATED 1000ML 1,000 ML IV SCH; -LIDOCAINE 1% PF 5 ML VIAL. ONE; -MORPHINE SULFATE 2 MG/ML INJ. IVP PRN; -ONDANSETRON PF 4 MG/2 ML VIAL. ONE; -PROCHLORPERAZINE 10 MG/2 ML VIAL. IVP PRN; -PROPOFOL 10 MG/ML (20ML) VIAL. IV ONE; -fentaNYL PF VIAL 100 MCG/2 ML VIAL IVP PRN
--- NOTE | 2021-09-19 13:31 | KCIC ---
EXAM: Bilateral lower extremity venous Doppler sonogram. HISTORY: Pain and swelling. TECHNIQUE: Mederos scale and color Doppler sonographic evaluation of the bilateral lower extremity veins with spectral waveform analysis was performed. FINDINGS: There is normal color flow, normal compressibility and there are normal spectral waveforms in the common femoral, superficial femoral, popliteal, posterior tibial and greater saphenous veins. The calf veins are not well seen due to soft tissue edema. IMPRESSION: No Doppler evidence of lower extremity deep venous thrombosis. Electronically signed by: Thania Roldan MD (09/19/2021 1:28 PM) [id number]
== END ==
LOC: KCIC US 12:20
PROVIDERS: ATTEND Nurse Practitioner Family
DX: I73.9 Peripheral vascular disease, unspecified (principal); R60.0 Localized edema
CPT/HCPCS: 93970

== ENCOUNTER → 2021-09-25 | Outpatient (CLI) | payer MEDICARE ==
--- NOTE | 2021-09-25 13:45 | KCIC ---
09/25/2021 ANKLE BRACHIAL INDEX Indication: Bilateral lower extremity edema, history of peripheral vascular disease. Comparison: None. Procedure: Arterial pressures are measured in the arms and ankles. Findings: Right ankle: 138 mm Hg. Right arm: 117 mm Hg. Left ankle: 135 mm Hg. Left arm: 119 mm Hg. Right leg [place]: 1.16. Left leg [place]: 1.13. IMPRESSION: Normal ankle-brachial indices LOWER EXTREMITY DUPLEX ARTERY ULTRASOUND Indication: Bilateral lower extremity edema and peripheral vascular disease Comparison: None. Procedure: Arterial 2D and duplex images are obtained of the lower extremity arteries. Findings: Essentially normal waveform morphology is present throughout the bilateral common femoral a rtery, superficial femoral artery, popliteal artery, anterior tibial artery, posterior tibial artery and dorsalis pedis artery. No focal elevation in velocity suggestive of a hemodynamically significant stenosis are identified. No major vessel occlusion is seen. IMPRESSION: 1. Normal ankle-brachial indices. 2. No sonographic evidence of hemodynamically significant stenosis involving the major arteries of th e bilateral lower extremities Electronically signed by: Richard Morales MD (09/25/2021 1:43 PM) [id number]
== END ==
LOC: KCIC US 12:19
PROVIDERS: ATTEND Nurse Practitioner Family
DX: I73.9 Peripheral vascular disease, unspecified (principal); R60.0 Localized edema; Z87.891 Personal history of nicotine dependence
CPT/HCPCS: 93922; 93925

== ENCOUNTER 2021-11-29 06:03 | Day surgery (SDC) | payer MEDICARE ==
[~2021-11-29] VITALS: Ht 172.7 cm; Wt 75.0 kg
[~2021-11-29 06:03] MED LIST changes: +ASCO100T4 PO; +DILT240C33 PO; +HYDROmorphone 2 MG/ML INJ. IVP PRN; +IV RINGERS,LACTATED 1000ML 1,000 ML IV SCH; +MORPHINE SULFATE 2 MG/ML INJ. IVP PRN; +PROCHLORPERAZINE 10 MG/2 ML VIAL. IVP PRN; +fentaNYL PF VIAL 100 MCG/2 ML VIAL IVP PRN
[2021-11-29 06:42] VITALS: BP 142/82
[2021-11-29] MEDS ORDERED: 0.9 % SODIUM CHLORIDE 20 ML VIAL. IJ ONE ×2 (07:14→08:24)
[2021-11-29] MEDS ORDERED: ONABOTULINUMTOXINA 100 UNIT VIAL. ID ONE (07:15)
[2021-11-29] MEDS ORDERED: LIDOCAINE 2% PF 5 ML VIAL. ONE (07:26)
[2021-11-29] MEDS ORDERED: PROPOFOL 10 MG/ML (20ML) VIAL. IV ONE (07:26)
[2021-11-29] MEDS ORDERED: DEXAMETHASONE SOD PHOS 4 MG/ML VIAL ONE (07:26)
[2021-11-29] MEDS ORDERED: ONDANSETRON PF 4 MG/2 ML VIAL. ONE (07:26)
[2021-11-29] MEDS ORDERED: fentaNYL PF VIAL 100 MCG/2 ML VIAL ONE ×2 (07:27→08:46)
[2021-11-29] MEDS ORDERED: 0.9 % SODIUM CHLORIDE 10 ML DISP.SYRIN. IV PRN (08:45)
[2021-11-29] MEDS ORDERED: CALCIUM CARBONATE 500 MG TAB.CHEW PO PRN (08:45)
[2021-11-29] MEDS ORDERED: diphenhydrAMINE HCL 25 MG CAPSULE PO PRN (08:45)
[2021-11-29] MEDS ORDERED: SIMETHICONE 80 MG TAB.CHEW PO PRN (08:45)
[2021-11-29] MEDS ORDERED: MAG HYDROX/ALUMINUM HYD/SIMETH 30 ML ORAL.SUSP PO PRN (08:45)
[2021-11-29] MEDS ORDERED: NALOXONE 0.4 MG/ML VIAL. IV PRN (08:45)
[2021-11-29] MEDS ORDERED: HYDROcodone/APAP 5/325MG 1 TAB TABLET PO PRN (08:45)
[2021-11-29] MEDS ORDERED: diphenhydrAMINE 50 MG/ML VIAL IV PRN (08:45)
--- NOTE | 2021-11-29 08:45 | PDOC4 ---
OPERATIVE NOTE Date: Date: November 29, 2021 Pre-Op Diagnosis: Urge incontinence Post-Op Diagnosis: Same Procedure Performed: Operative operative cystoscopy with injection of bladder Botox Surgeon: Dr. Ivana Costa Anesthesia Type: General Blood Loss: 0 Specimans Obtained: None Findings: Normal bladder both ureteral openings were seen in the bladder bubble at the top Complications: None Operative Note: This patient was taken to the operating room where general anesthesia was placed. Patient was placed in a dorsal lithotomy position in Willis stirrups. Vaginal area was prepped and draped in the normal sterile fashion. The cyst oscope was primed and ready upon my arrival. Upon my arrival a timeout was performed once everyone agreed on the patient the site the procedure the procedure was initiated. The cystoscope was placed into the bladder with the above findings. 10 cc of injectable saline had been previously mixed with the 100 units of Botox and was drawn up in a 10cc syringe was hooked up to the labyrinth needle. The flexible needle was then placed through the operating channel of the cystoscope. 20 1/2 cc injections was done in the bladder a couple centimeters above the urethral openings across and up the mid bladder. Then a 1 cc injectable saline flush was done at the end to get the remaining solution out of the needle. There was very minimal bleeding from the injections and once it was completed the procedure was ended. The cystoscope was removed and the procedure was ended. The patient was awakened from anesthesia and brought to recovery room in stable condition. There were no complications. IVANA COSTA MD November 29, 2021 08:45
[2021-11-29] MEDS: fentaNYL PF VIAL 100 MCG/2 ML VIAL IVP PRN ×2 (08:50→09:00)
[2021-11-29 09:45] VITALS: BP 125/73
== END 2021-11-29 10:00 | disposition home or self-care (01) ==
LOC: SURG 06:03
PROVIDERS: ATTEND Obstetrics & Gynecology
DX: N39.41 Urge incontinence (principal); I48.91 Unspecified atrial fibrillation; J44.9 Chronic obstructive pulmonary disease, unspecified; F41.9 Anxiety disorder, unspecified; F17.210 Nicotine dependence, cigarettes, uncomplicated; Z98.51 Tubal ligation status; Z87.440 Personal history of urinary (tract) infections; Z79.899 Other long term (current) drug therapy; Z98.890 Other specified postprocedural states; Z79.82 Long term (current) use of aspirin; Z72.89 Other problems related to lifestyle; Z88.1 Allergy status to other antibiotic agents
CPT/HCPCS: 52287; A4911; A4930; J0585; J1100; J2405; J2704; J3010